=== PATIENT | male | born 1950 | race Caucasian/White ===

== ENCOUNTER 2023-12-16 07:41 | Day surgery (SDC) | payer MEDICARE, SELFPAY ==
[2023-11-18 09:16] VITALS: BMI 29.0
[2023-12-04 09:04] VITALS: BMI 29.0
--- NOTE | 2023-12-15 12:44 | P.PNAN_ITS ---
Anes - Initial Pre Proc Eval Procedure: Operation Date: 12/16/23 10:00 Proposed Procedures p Screening Colonoscopy - King Bonilla MD Date/Time: 12/15/23 12:44 Surgeon: King Bonilla MD Pre Op Diagnosis: Neoplasm screening. Patient Data Age: 73 Gender: M Height: 1.83 m Weight: 97 kg Allergies Allergy/AdvReac Type Severity Reaction Status Date / Time No Known Allergies Allergy Verified 12/16/23 08:41 Home Medications Medication Instructions Recorded Confirmed Type amlodipine 5 mg tablet 5 mg PO DAILY 12/04/23 12/16/23 History dupilumab 300 mg/2 mL subcutaneous 300 mg subcut [id number] 12/04/23 12/16/23 History pen injector (Dupixent) multivit with minerals-iron 18 1 tablet PO DAILY 12/04/23 12/16/23 History mg-folic ac 400 mcg-vit K 25 mcg tablet (Adults Multivitamin) nebivolol 10 mg tablet 10 mg PO DAILY 12/04/23 12/16/23 History omega-3 acid ethyl esters 1 gram 2 cap PO BID 12/04/23 12/16/23 History capsule rosuvastatin 10 mg tablet 10 mg PO DAILY 12/04/23 12/16/23 History tamsulosin 0.4 mg capsule 0.4 mg PO DAILY 12/04/23 12/16/23 History telmisartan 80 mg tablet 80 mg PO DAILY 12/04/23 12/16/23 History Patient hx anesthesia problems: none Family hx anesthesia problems: none Results Review: All pre-operative results and documents have been reviewed as part of the pre- operative evaluation. [facility] Past Medical History Medical History (Updated 12/15/23 @ 19:35 by King Bonilla MD) Asthma Hyperlipidemia Hypertension Social History Social History (Updated 12/16/23 @ 09:48 by Everton Lloyd DO) Smoking status: Former smoker Additional smoking assessment comments: less than 0.5 PPD x 50 years, quit 2017 Alcohol intake: current Drinks per week: 8 Substance use: never Substance use type: does not use Spiritual care concerns: No Anes - Eval Final PreProcedure Day of Procedure 12/15/23 12:44 Patient weight: overweight Heart: regular rate and rhythm Lungs: clear to auscultation Airway: Mallampati scale class II Neurological: alert and oriented Last oral intake: >/= 8 hours ASA classification: III Emergent: no Anesthetic plan: proceed Anesthesia type and monitoring: general GIVS and standard monitoring Results Review: All pre-operative results and documents have been reviewed as part of the pre- operative evaluation. Informed Consent: The patient's anesthetic plan and its attendant risks and benefits were discussed with the patient/family/POA. Questions were solicited and answers provided to the satisfaction of the patient/family/POA.
--- NOTE | 2023-12-15 19:34 | PM.HPGS ---
History of Present Illness History of Present Illness Consent: Risks, benefits, and alternatives have been discussed and questions answered. Patient agrees to proceed with procedure. Chief complaint: Neoplasm screening. Narrative: Angel Aguilar is a 73 year old male with history of colon polyps Review of Systems Review of Systems: All systems reviewed & are unremarkable except as noted in HPI and below PMFSH Past Medical History Medical History (Updated 12/15/23 @ 19:35 by King Bonilla MD) Asthma Hyperlipidemia Hypertension Social History Social History Smoking status: Former smoker Additional smoking assessment comments: less than 0.5 PPD x 50 years, quit 2017 Alcohol intake: current Drinks per week: 8 Substance use: never Substance use type: does not use Spiritual care concerns: No Meds Home Medications and Allergies Home Medications Medication Instructions Recorded Confirmed Type amlodipine 5 mg tablet 5 mg PO DAILY 12/04/23 12/16/23 History dupilumab 300 mg/2 mL subcutaneous 300 mg subcut [id number] 12/04/23 12/16/23 History pen injector (Dupixent) multivit with minerals-iron 18 1 tablet PO DAILY 12/04/23 12/16/23 History mg-folic ac 400 mcg-vit K 25 mcg tablet (Adults Multivitamin) nebivolol 10 mg tablet 10 mg PO DAILY 12/04/23 12/16/23 History omega-3 acid ethyl esters 1 gram 2 cap PO BID 12/04/23 12/16/23 History capsule rosuvastatin 10 mg tablet 10 mg PO DAILY 12/04/23 12/16/23 History tamsulosin 0.4 mg capsule 0.4 mg PO DAILY 12/04/23 12/16/23 History telmisartan 80 mg tablet 80 mg PO DAILY 12/04/23 12/16/23 History Allergies Allergy/AdvReac Type Severity Reaction Status Date / Time No Known Allergies Allergy Verified 12/16/23 08:41 Exam Resp: Auscultation: clear to auscultation bilaterally Cardio: Rate: regular rate Rhythm: regular rhythm GI: GI Palp: Yes Soft to palpation and No Tenderness to palpation present (GI) Assessment and Plan Assessment and plan (1) Personal history of colonic polyps: Code(s): Z86.010 - Personal history of colonic polyps Status: Acute Assessment and Plan: Colonoscopy with possible biopsy or polypectomy or cautery or injection of substances.
[2023-12-16 08:49] VITALS: BP 132/84; PULSE 55; RESP 18; TEMP 36.8; O2SAT 96; BMI 27.6
[2023-12-16] MEDS: LACTATED RINGERS 1,000 ML 150 ML IV CONT (09:04)
[2023-12-16 10:08] VITALS: BP 147/74; PULSE 52; RESP 16; O2SAT 93
--- NOTE | 2023-12-16 10:13 | WPDANESPN ---
Anes - Prog Note Post-Op Date/Time: 12/16/23 10:13 Cardiovascular status: normal Respiratory status: normal Airway patency: baseline Mental status: baseline Post-Op hydration status: normal Vital Signs: Last Vital Signs Temp 36.8 C 12/16/23 08:49 Pulse 52 L 12/16/23 10:08 Resp 16 12/16/23 10:08 BP 147/74 H 12/16/23 10:08 Pulse Ox 93 12/16/23 10:08 O2 Del Method Room Air 12/16/23 10:08 Pain Score (VAS): 0 I/O: Intake & Output 12/15/23 12/16/23 12/16/23 23:59 07:59 15:59 Intake Total 500 Balance 500 Post-procedural complaints: none Patient Feedback: Patient satisfied with anesthetic care. Other Findings: Patient vital signs back to baseline. Patient denies nausea and vomiting. Patient's pain under control. Patient OK for discharge.
[2023-12-16 10:18] VITALS: BP 133/77; PULSE 50; RESP 16; O2SAT 95
[2023-12-16 10:28] VITALS: BP 131/82; PULSE 49; RESP 18; O2SAT 98
== END 2023-12-16 10:55 | disposition home or self-care (01) ==
PROVIDERS: PCP Internal Medicine; Visit Provider Internal Medicine Gastroenterology
PROC: 0DJD8ZZ Inspection of Lower Intestinal Tract, Via Natural or Artificial Opening Endoscopic (ICD-10-PCS; CPT 45378; principal; 2023-12-16 10:00)
DX: Z86.010 Personal history of colon polyps (principal); Z12.11 Encounter for screening for malignant neoplasm of colon; K57.30 Diverticulosis of large intestine without perforation or abscess without bleeding
CPT/HCPCS: 45378

== ENCOUNTER 2025-03-05 08:13 | Day surgery (SDC) | payer MEDICARE, SELFPAY ==
[2025-03-05] VITALS (15 sets, daily range): BP systolic 137–215; BP diastolic 71–107; PULSE 61–80; RESP 16–22; TEMP 36.3–37.1; O2SAT 93–99
--- OUTSIDE RECORDS SUMMARY | 2025-03-05 08:15 | XMS_ITS | Encounter Summary ---
Author Organization [facility] Healthcare Address [address] [place] [address] Care Team Providers Care Marble Cutter Operator Name Role Phone Rbo Easley MD Primary Care Provider [phone] Jcarlos Morrow MD Unavailable Benjamin Garcia MD Unavailable [phone] Felicia Walker NP Unavailable [phone] David Sosa MD Unavailable [phone] Encounter Details Date Type Department Care Team (Late st Contact Info) Description 03/13/2020 Telephone [facility] Advanced Medicine Radiation Oncology [address] [facility] [place] [address] Mariama Mazariegos MA Social History Tobacco Use Types Packs/Day Years Used Date Smoking Tobacco: Former Cigarettes 0.3 50 1 - 02/25/2017 Smokeless Tobacco: Former Snuff, Chew Quit: 1980 Alcohol Use Standard Drinks/Week Comments Yes 6 (1 standard drink = 0.6 oz pur e alcohol) Humiliation, Afraid, Rape, and Kick questionnair e Answer Date Recorded Fear of Current or Ex-Partner No Emotionally Abused No 11/24/2018 Physically Abused No 11/24/2018 Sexually Abused No 11/24/2018 Social Connection and Isolation Panel Answer Date Recorded Frequency of Communication with Friends and Fami ly Once a week 11/24/2018 Frequency of Social Gatherings with Friends and Family Once a week 11/24/2018 Attends Voodoo Services Never 11/24 Active Member of Clubs or Organizations Yes 11/24/2018 Attends Club or Organization Meetings Never 11/24/2018 Marital Status 11/24/2018 AUDIT-C Answer Date Recorded Frequency of Alcohol Consumption 2-4 times a mon 11/24/2018 Average Number of Drinks 5 or 6 019 Frequency of Binge Drinking Never 10/28 Overall Financial Resource Strain (CARDIA) Answe r Date Recorded Difficulty of Paying Living Expenses Not hard at all 11/24/2018 [facility] - Occupational Stress Questionnaire Answer Date Recorded Feeling of Stress Only a little 11/24/2018 Exercise Vital Sign Answer Date Recorde d Days of Exercise per Week 4 days 2018 Minutes of Exercise per Session 30 min 11/24/2018 Hunger Vital Sign Answer Date Recorded Worried About Running Out of Food in the Last Ye ar Never true 11/24/2018 Ran Out of Food in the Last Year Never true 11/24/2018 PRAPARE - Transportation Answer Date Re corded Lack of Transportation (Medical) No 11/24/2018 Lack of Transportation (Non-Medical) No 11/24/2018 Education Answer Date Recorded What is the highest level of school you have completed or the highest degree you have received? 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 Gender Identity Male 10/10/2021 11:17 AM CDT Sexual Orientation Straight 10/10/2021 11 :17 AM CDT Occupation Industry Job Start Date Job End Date 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 Not on file Not on file Not on f ile documented as of this encounter Plan of Treatment Not on file documented as of this encounter Visit Diagnoses Not on filedocumented in this encounter Care Teams Marble Cutter Operator Relationship Specialty Start Date End Date Rob Easley MD PCP - General Internal Medicine 07/04/17 Jcarlos Morrow MD Referring Physician Urology 11/11/18 Benjaimn Garcia MD Radiation Oncologist Radiation Oncology 11/21/18 Felicia Walker NP [address] [place] [address] Nurse Practitioner Nurse Practitioner 04/13/21 David Sosa MD [address] [facility] [address] [place] [address] Radiation Oncologist Radiation Oncology 10/11/22 documented as of this encounter
--- OUTSIDE RECORDS SUMMARY | 2025-03-05 08:15 | XMS_ITS | Encounter Summary ---
Author Organization [facility] Address [address] [place] [address] Care Team Providers Care Baggage Checker Name Role Phone Unavailable Primary Care Provider Unavailabl e Encounter Details Date Type Department Care Team (Late st Contact Info) Description 05/07/2024 Lab Requisition [facility] - DermPath Lab [address] [facility] [place] [id number] Unique Oseguera PA [address] [place] [id number] Dermatitis, unspecified Social History Tobacco Use Types Packs/Day Years Used Date Smoking Tobacco: Never Assessed Sex and Gender Information Value Date Recorded Sex Assigned at Not on file Legal Sex Male 8:57 AM CDT Gender Identity Not on file Sexual Orientation Not on file documented as of this encounter Plan of Treatment Not on file documented as of this encounter Procedures Procedure Name Priority Date/Time Associated Diagnosis Comments DERMATOPATHOLOGY Routine 05/07/2024 12:0 0 AM HEALTH SCIENCE SPECIALIST Dermatitis, unspecified documented in this encounter Results * DERMATOPATHOLOGY (05/07/2024 12:00 AM HEALTH SCIENCE SPECIALIST) Case Report Dermatopathology Report Case: [id number] Authorizing Provider: Unique Oseguera PA Collected: 05/07/2024 12:00 AM Ordering Location: [facility] - Received: 2024 01:11 PM DermPath Lab Pathologist: Mahamed Maldonado MD Specimen: Skin, right mid upper back 5:32 PM HEALTH SCIENCE SPECIALIST DERMATOPATHOLOGY LABORATORY Final Diagnosis Specimen A. 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 Hypersensitivity reaction vs. Tinea Corporis vs. Psoriasis 5:32 PM [facility] DERMATOPATHOLOGY LABORATORY Gross Description Specimen A: Received is one formalin filled container labeled with the patient's name and designated right mid upper back. The specimen consists of a punch biopsy measuring 4x4x2 mm. Jar 0. 5:32 PM [facility] DERMATOPATHOLOGY LABORATORY Microscopic Description Specimen A. SKIN, right mid upper back: There is focal parakeratosis and spongiosis. In the dermis there is a mainly superficial perivascular lymphohistiocytic inflammatory infiltrate with rare eosinophils. Grocott's methenamine silver (GMS) stain is negative for fungal elements in the sections examined. There is erythrocyte extravasation in the papillary dermis. COMMENT: The histological differential diagnosis includes a contact dermatitis and an eczematous drug eruption. A diagnosis of pityriasis rosea was considered. 5:32 PM [facility] DERMATOPATHOLOGY LABORATORY Disclaimer An external and internal positive and negative controls are appropriate for the histochemical, immunohistochemical and immunofluorescence stain(s) in this case (if any), except where stated explicitly. The performance characteristics of the stain(s) cited in this report were developed and its performance characteristic determined by the Dermatopathology Laboratory at [facility], directed by Dr. Cora Maldonado. These tests need not be, and therefore are not, approved by the [place] Food and Drug Administration. The tests are used for clinical purposes. Billing Codes Specimen Charges Stain Charges 13029 1 56297 1 5 5:32 PM [facility] DERMATOPATHOLOGY LABORATORY Embedded Images 5:32 PM [facility] DERMATOPATHOLOGY LABORATORY Pathology/Cytolog y TISSUE SPECIMEN FROM SKIN / Unknown 05/07/2024 2024 1:11 PM [facility] - PATHOLOGY/CYTOLOGY OR DERABLES Final Result DERMATOPATHOLOGY LABORATORY [facility] - Department of Dermatology [address] [phone] documented in this encounter Visit Diagnoses Diagnosis Dermatitis, unspecified documented in this encounter
--- OUTSIDE RECORDS SUMMARY | 2025-03-05 08:15 | XMS_ITS | Data Portability ---
Author Organization [employer], Main Office Address [address] [place] [address] Assessment Encounter Date Assessment Date Assessment LastModified by Organization Details LastModified Time 08/19/2022 08/19/2022 Doxycycline Blood work Continue current therapy Blood pressure is up a little bit today will increase the telmisartan to 40 mg in the morning 20 mg at night see me in 1 month Not available 08/19/2022 22:39:52 09/16/2022 09/16/2022 Switch back to telmisartan 40 mg 1-1/2 tablets daily blood pressure check in a couple weeks see me in 4 months [email or web address] Not available 09/17/2022 08:29:04 12/18/2022 12/18/2022 Continue current therapy follow-up in 4 months [email or web address] Not available 12/18/2022 22:55:01 01/23/2023 01/23/2023 Medrol Dosepak continue current therapy otherwise and follow up with me in 6 months [email or web address] Not available 02/02/2023 18:30:33 Plan of Treatment Reminders Order Date Submit Date Provider Last Modified By Organization Details Last Modified Time Details Appointments None recorded. Lab PSA, serum or plasma 2022 023 [facility] (Lab), [address] [place], [address], 15:44:29 lipid panel, serum 2022 023 [facility] (Lab), [address] [place], [address], 3 15:44:36 CMP, serum or plasma 2022 023 [facility] (Lab), [address] [place], [address], 3 12:49:02 CBC w/ auto diff 2022 023 [facility] (Lab), [address] [place], [address], 3 13:38:01 Referral None recorded. Procedures None recorded. Surgeries None recorded. Imaging None recorded. Medication Orders Medrol (Chito) 4 mg tablets in a dose pack 2022 023 [email or web address] [facility] #[id number], [address], [place], [address], 3 18:25:34 doxycycline hyclate 100 mg capsule 2022 023 [email or web address] [facility] #[id number], [address], [place], [address], 3 09:56:34 telmisartan 40 mg tablet 2022 023 [email or web address] [facility] #[id number], [address], [place], [address], 3 17:45:28 Patient TargetsNo targets recorded. Patient InstructionsNo instructions recorded. Reason for Referral None Reported. Results Created Date Observation Date Name Description Value Unit Range Abnormal Flag Note LastModifiedBy Organization Detail LastModifiedTime 08/20/1908/19/2022 COMPR EHENS JUDE METAB OLIC PANEL sodium 138 mmol/ L 137-14 5 Not Available [facility] (Lab) [address] [place], [address], 08/19/2022 12:49:02 08/20/19 23 08/19/2022 COMPR EHENS JUDE METAB OLIC PANEL potassium 4.1 mmol/ L 3.5-5. 1 Not Available [facility] (Lab) [address] [place], [address], 08/19/2022 12:49:02 08/20/19 23 08/19/2022 COMPR EHENS JUDE METAB OLIC PANEL chloride 104 mmol/ L 98-107 Not Available [facility] (Lab) [address] [place], [address], 08/19/2022 12:49:02 08/20/19 23 08/19/2022 COMPR EHENS JUDE METAB OLIC PANEL carbon dioxide 26 mmol/ L 22-30 Not Available [facility] (Lab) [address] [place], [address], 08/19/2022 12:49:02 08/20/19 23 08/19/2022 COMPR EHENS JUDE METAB OLIC PANEL anion gap 12.1 mmol/ L 14-22 low Not Available [facility] (Lab) [address] [place], [address], 08/19/2022 12:49:02 08/20/19 23 08/19/2022 COMPR EHENS JUDE METAB OLIC PANEL glucose 140 mg/dL 70-99 high Not Available [facility] (Lab) [address] [place], [address], 08/19/2022 12:49:02 08/20/1908/19/2022 COMPR EHENS JUDE METAB OLIC PANEL BUN 11 mg/dL 8-19 Not Available [facility] (Lab) [address] [place], [address], 08/19/2022 12:49:02 08/20/19 23 08/19/2022 COMPR EHENS JUDE METAB OLIC PANEL creatinine 0.96 mg/dL 0.66-1 .25 Not Available [facility] (Lab) [address] [place], [address], 08/19/2022 12:49:02 08/20/19 23 08/19/2022 COMPR EHENS JUDE METAB OLIC PANEL GFR >60 Refer ence Range : [place] ge GFR Healt hy Adult : >60 mL/mi n/1.7 3 m2 Chron ic Kidne y Disea se: 15-60 mL/mi n/1.7 3 m2 Kidne y Failu re: <15/m L/min /1.73 m2 www.n iddk. [facility].g ov The MDRD study equat ion has not been valid ated in child ciro <18 years of age; pregn ant women ; the elder ly >85 years of age; or in some racia l or ethni c subgr oups, such as Hisalicia nics. Outsi de the valid ated sukh eters , estim ated GFR is less accur ate, requi ring clini cassie judgm ent on a case- by-ca se basis . Clini cassie inter preta tion for other races and ages must be made by the clini sudheer. The MDRD study equat ion has not been valid ated for the evalu ation of serum creat inine relat ed to nutri honey l statu s or medic ation usage . For perso ns <18 years of age, a pedia tric GFR calcu lator is avail able on the [facility] websi te: https :[email or web address] a [email or web address] [email or web address] rg/pr ofess ional s/kdo qi/gf r_cal culat or Not Available [facility] (Lab) [address] [place], [address], 08/19/2022 12:49:02 08/20/1908/19/2022 COMPR EHENS JUDE METAB OLIC PANEL alkaline phosphatase 52 U/L 38-126 Not Available [facility] (Lab) [address] [place], [address], 08/19/2022 12:49:02 08/20/19 23 08/19/2022 COMPR EHENS JUED METAB OLIC PANEL alanine aminotransfe rase 46 U/L 0-50 Not Available [facility] (Lab) [address] [place], [address], 08/19/2022 12:49:02 08/20/19 23 08/19/2022 COMPR EHENS JUDE METAB OLIC PANEL aspartate aminotransfe rase 54 U/L 15-46 high Not Available [facility] (Lab) [address] [place], [address], 08/19/2022 12:49:02 08/20/19 23 08/19/2022 COMPR EHENS JUDE METAB OLIC PANEL bilirubin, total 0.40 mg/dL 0.20-1 .30 Not Available [facility] (Lab) [address] [place], [address], 08/19/2022 12:49:02 08/20/19 23 08/19/2022 COMPR EHENS JUDE METAB OLIC PANEL calcium 9.7 mg/dL 8.4-10 .2 Not Available [facility] (Lab) [address] [place], [address], 08/19/2022 12:49:02 08/20/19 23 08/19/2022 COMPR EHENS JUDE METAB OLIC PANEL total protein 6.9 g/dL 6.3-8. 2 Not Available [facility] (Lab) [address] [place], [address], 08/19/2022 12:49:02 08/20/1908/19/2022 COMPR EHENS JUDE METAB OLIC PANEL albumin 4.3 g/dL 3.0-4. 4 Not Available [facility] (Lab) [address] [place], [address], 08/19/2022 12:49:02 08/20/19 23 08/19/2022 COMPR EHENS JUDE METAB OLIC PANEL globulin 2.6 g/dL 2.6-4. 2 Not Available [facility] (Lab) [address] [place], [address], 08/19/2022 12:49:02 08/20/1908/19/2022 COMPR EHENS JUDE METAB OLIC PANEL A/G ratio 1.7 ratio 1.0-2. 0 Not Available [facility] (Lab) [address] [place], [address], 08/19/2022 12:49:02 08/20/19 23 08/19/2022 PSA SCREE N PSA medicare screen 0.23 NG/mL 0.00-4 .00 Not Available [facility] (Lab) [address] [place], [address], 08/19/2022 13:27:10 08/20/19 23 08/19/2022 CBC/C OMPLE TE BLD COUNT W/DIF F white blood cells 8.9 x10'3 /uL 4.2-10 .8 Not Available [facility] (Lab) [address] [place], [address], 08/19/2022 13:38:01 08/20/19 23 08/19/2022 CBC/C OMPLE TE BLD COUNT W/DIF F red blood cells 4.71 x10'6 /uL 4.10-5 .80 Not Available [facility] (Lab) [address] [place], [address], 08/19/2022 13:38:01 08/20/19 23 08/19/2022 CBC/C OMPLE TE BLD COUNT W/DIF F hemoglobin 15.0 g/dL 13.2-1 7.0 Not Available [facility] (Lab) [address] [place], [address], 08/19/2022 13:38:01 08/20/19 23 08/19/2022 CBC/C OMPLE TE BLD COUNT W/DIF F hematocrit 46.2 % 39.3-5 0.0 Not Available [facility] (Lab) [address] [place], [address], 08/19/2022 13:38:01 08/20/1908/19/2022 CBC/C OMPLE TE BLD COUNT W/DIF F mean red cell volume 98.1 fL 80.0-9 7.0 high Not Available [facility] (Lab) [address] [place], [address], 08/19/2022 13:38:01 08/20/19 23 08/19/2022 CBC/C OMPLE TE BLD COUNT W/DIF F mean red cell hemoglobin 31.8 pg 27.0-3 3.0 Not Available [facility] (Lab) [address] [place], [address], 08/19/2022 13:38:01 08/20/19 23 08/19/2022 CBC/C OMPLE TE BLD COUNT W/DIF F mean RBC HGB concentratio n 32.5 g/dL 31.0-3 6.0 Not Available [facility] (Lab) [address] [place], [address], 08/19/2022 13:38:01 08/20/19 23 08/19/2022 CBC/C OMPLE TE BLD COUNT W/DIF F red cell distribution width 12.8 % 11.8-1 5.5 Not Available [facility] (Lab) [address] [place], [address], 08/19/2022 13:38:01 08/20/19 23 08/19/2022 CBC/C OMPLE TE BLD COUNT W/DIF F platelets 306 x10'3 /uL 150-40 0 Not Available [facility] (Lab) [address] [place], [address], 08/19/2022 13:38:01 08/20/19 23 08/19/2022 CBC/C OMPLE TE BLD COUNT W/DIF F mean platelet volume 8.8 fL 9.0-12 .4 low Not Available [facility] (Lab) [address] [place], [address], 08/19/2022 13:38:01 08/20/19 23 08/19/2022 CBC/C OMPLE TE BLD COUNT W/DIF F neutrophils 59.4 % 39.0-7 2.0 Not Available [facility] (Lab) [address] [place], [address], 08/19/2022 13:38:01 08/20/19 23 08/19/2022 CBC/C OMPLE TE BLD COUNT W/DIF F lymphocytes 27.5 % 16.0-4 7.0 Not Available [facility] (Lab) [address] [place], [address], 08/19/2022 13:38:01 08/20/1908/19/2022 CBC/C OMPLE TE BLD COUNT W/DIF F monocytes 6.5 % 5.0-12 .0 Not Available [facility] (Lab) [address] [place], [address], 08/19/2022 13:38:01 08/20/19 23 08/19/2022 CBC/C OMPLE TE BLD COUNT W/DIF F eosinophils 3.7 % 1.0-7. 0 Not Available [facility] (Lab) [address] [place], [address], 08/19/2022 13:38:01 08/20/19 23 08/19/2022 CBC/C OMPLE TE BLD COUNT W/DIF F basophils 2.1 % 0.0-2. 0 high Not Available [facility] (Lab) [address] [place], [address], 08/19/2022 13:38:01 08/20/19 23 08/19/2022 CBC/C OMPLE TE BLD COUNT W/DIF F immature granulocytes 0.8 % 0.00-0 .50 high Not Available [facility] (Lab) [address] [place], [address], 08/19/2022 13:38:01 08/20/19 23 08/19/2022 CBC/C OMPLE TE BLD COUNT W/DIF F neutrophils, absolute count 5.27 x10'3 /uL 1.5-8. 0 Not Available [facility] (Lab) [address] [place], [address], 08/19/2022 13:38:01 08/20/1908/19/2022 CBC/C OMPLE TE BLD COUNT W/DIF F lymphocytes, absolute count 2.44 x10'3 /uL 1.07-3 .43 Not Available [facility] (Lab) [address] [place], [address], 08/19/2022 13:38:01 08/20/19 23 08/19/2022 CBC/C OMPLE TE BLD COUNT W/DIF F monocytes, absolute count 0.58 x10'3 /uL 0.29-0 .99 Not Available [facility] (Lab) [address] [place], [address], 08/19/2022 13:38:01 08/20/19 23 08/19/2022 CBC/C OMPLE TE BLD COUNT W/DIF F eosinophils, absolute count 0.33 x10'3 /uL 0.02-0 .53 Not Available [facility] (Lab) [address] [place], [address], 08/19/2022 13:38:01 08/20/1908/19/2022 CBC/C OMPLE TE BLD COUNT W/DIF F basophils, absolute count 0.19 x10'3 /uL 0.01-0 .08 high Not Available [facility] (Lab) [address] [place], [address], 08/19/2022 13:38:01 08/20/19 23 08/19/2022 CBC/C OMPLE TE BLD COUNT W/DIF F immature granulocytes ,absolute 0.07 x10'3 /uL 0.00-0 .05 high Not Available [facility] (Lab) [address] [place], [address], 08/19/2022 13:38:01 08/20/19 23 08/19/2022 CBC/C OMPLE TE BLD COUNT W/DIF F nucleated red blood cells 0.0 % -0 Not Available [facility] (Lab) [address] [place], [address], 08/19/2022 13:38:01 08/20/19 23 08/19/2022 CBC/C OMPLE TE BLD COUNT W/DIF F NRBC# 0.00 x10'3 /uL Not Available [facility] (Lab) [address] [place], [address], 08/19/2022 13:38:01 01/15/20 23 01/14/2023 COMPR EHENS JUDE METAB OLIC PANEL sodium 137 mmol/ L 137-14 5 Not Available [facility] (Lab) [address] [place], [address], 01/14/2023 11:42:42 01/15/20 23 01/14/2023 COMPR EHENS JUDE METAB OLIC PANEL potassium 4.7 mmol/ L 3.5-5. 1 Not Available [facility] (Lab) [address] [place], [address], 01/14/2023 11:42:42 01/15/20 23 01/14/2023 COMPR EHENS JUDE METAB OLIC PANEL chloride 101 mmol/ L 98-107 Not Available [facility] (Lab) [address] [place], [address], 01/14/2023 11:42:42 01/15/20 23 01/14/2023 COMPR EHENS JUDE METAB OLIC PANEL carbon dioxide 29 mmol/ L 22-30 Not Available [facility] (Lab) [address] [place], [address], 01/14/2023 11:42:42 01/15/20 23 01/14/2023 COMPR EHENS JUDE METAB OLIC PANEL anion gap 11.7 mmol/ L 14-22 low Not Available [facility] (Lab) [address] [place], [address], 01/14/2023 11:42:42 01/15/20 23 01/14/2023 COMPR EHENS JUDE METAB OLIC PANEL glucose 104 mg/dL 70-99 high Not Available [facility] (Lab) [address] [place], [address], 01/14/2023 11:42:42 01/15/20 23 01/14/2023 COMPR EHENS JUDE METAB OLIC PANEL BUN 13 mg/dL 8-19 Not Available [facility] (Lab) [address] [place], [address], 01/14/2023 11:42:42 01/15/20 23 01/14/2023 COMPR EHENS JUDE METAB OLIC PANEL creatinine 1.06 mg/dL 0.66-1 .25 Not Available [facility] (Lab) [address] [place], [address], 01/14/2023 11:42:42 01/15/2001/14/2023 COMPR EHENS JUDE METAB OLIC PANEL GFR >60 Refer ence Range : [place] ge GFR Healt hy Adult : >60 mL/mi n/1.7 3 m2 Chron ic Kidne y Disea se: 15-60 mL/mi n/1.7 3 m2 Kidne y Failu re: <15/m L/min /1.73 m2 www.n iddk. nih.g ov The MDRD study equat ion has not been valid ated in child ciro <18 years of age; pregn ant women ; the elder ly >85 years of age; or in some racia l or ethni c subgr oups, such as Hispa nics. Outsi de the valid ated sukh eters , estim ated GFR is less accur ate, requi ring clini cassie judgm ent on a case- by-ca se basis . Clini cassie inter preta tion for other races and ages must be made by the clini sudheer. The MDRD study equat ion has not been valid ated for the evalu ation of serum creat inine relat ed to nutri honey l statu s or medic ation usage . For perso ns <18 years of age, a pedia tric GFR calcu lator is avail able on the [facility] websi te: https :[email or web address] a [email or web address] arriola/pr ofess ional s/kdo qi/gf r_cal culat or Not Available [facility] (Lab) [address] [place], [address], 01/14/2023 11:42:42 01/15/20 23 01/14/2023 COMPR EHENS JUDE METAB OLIC PANEL alkaline phosphatase 58 U/L 38-126 Not Available [facility] (Lab) [address] [place], [address], 01/14/2023 11:42:42 01/15/20 23 01/14/2023 COMPR EHENS JUDE METAB OLIC PANEL alanine aminotransfe rase 39 U/L 0-50 Not Available [facility] (Lab) [address] [place], [address], 01/14/2023 11:42:42 01/15/20 23 01/14/2023 COMPR EHENS JUDE METAB OLIC PANEL aspartate aminotransfe rase 43 U/L 15-46 Not Available [facility] (Lab) [address] [place], [address], 01/14/2023 11:42:42 01/15/20 23 01/14/2023 COMPR EHENS JUDE METAB OLIC PANEL bilirubin, total 0.60 mg/dL 0.20-1 .30 Not Available [facility] (Lab) [address] [place], [address], 01/14/2023 11:42:42 01/15/20 23 01/14/2023 COMPR EHENS JUDE METAB OLIC PANEL calcium 9.4 mg/dL 8.4-10 .2 Not Available [facility] (Lab) [address] [place], [address], 01/14/2023 11:42:42 01/15/20 23 01/14/2023 COMPR EHENS JUDE METAB OLIC PANEL total protein 7.2 g/dL 6.3-8. 2 Not Available [facility] (Lab) [address] [place], [address], 01/14/2023 11:42:42 01/15/20 23 01/14/2023 COMPR EHENS JUDE METAB OLIC PANEL albumin 4.5 g/dL 3.0-4. 4 high Not Available [facility] (Lab) [address] [place], [address], 01/14/2023 11:42:42 01/15/20 23 01/14/2023 COMPR EHENS JUDE METAB OLIC PANEL globulin 2.7 g/dL 2.6-4. 2 Not Available [facility] (Lab) [address] [place], [address], 01/14/2023 11:42:42 01/15/20 23 01/14/2023 COMPR EHENS JUDE METAB OLIC PANEL A/G ratio 1.7 ratio 1.0-2. 0 Not Available [facility] (Lab) [address] [place], [address], 01/14/2023 11:42:42 01/15/20 23 01/14/2023 LIPID PANEL cholesterol 169 mg/dL 140-19 9 NIH WAQAS NSUS RECOM MENDA TION FOR AZALIA STERO L: ADULT CHILD LOW RISK: <200 <170 BORDE RLINE : <200- 239 ----- HIGH RISK: >240 >200 Not Available [facility] (Lab) [address] [place], [address], 01/14/2023 11:42:46 01/15/20 23 01/14/2023 LIPID PANEL triglyceride s 211 mg/dL 0-150 high NIH WAQAS NSUS REPOR T RECOM MENDA TION FOR TRIGL YCERI DANNY: ADULT CHILD LOW RISK: <150 ----- BODER LINE: 150-1 99 ----- HIGH RISK: >200 ----- Not Available [facility] (Lab) [address] [place], [address], 01/14/2023 11:42:46 01/15/2001/14/2023 LIPID PANEL HDL cholesterol 59 mg/dL 40- Not Available [facility] (Lab) [address] [place], [address], 01/14/2023 11:42:46 01/15/2001/14/2023 LIPID PANEL LDL cholesterol, calculated 68 mg/dL 0-130 NIH WAQAS NSUS REPOR T RECOM MENDA TIONS FOR LDL: ADULT CHILD LOW RISK <130 <110 (OPTI MAL LDL) <100 ----- BORDE RLINE : 130-1 59 ----- HIGH RISK: >160 >130 A TRIGL YCERI DE RESUL T >400 INVAL IDATE S THE CALCU LATIO N FOR LDL FRACT IONAT ION - THE LDL RESUL T WILL NOT BE REPOR YULY. Not Available [facility] (Lab) [address] [place], [address], 01/14/2023 11:42:46 01/15/2001/14/2023 HEMOG LOBIN A1C HA1C 6.0 % 4.0-6. 0 Diabe harrison Scree melania Crite viviane: <5.7% Consi stent with absen ce of diabe harrison 5.7-6 .4% Consi stent with incre ased risk for diabe harrison (pred iabet es) >OR=6 .5% Consi stent with diabe harrison REFER ENCE: Diabe harrison Care 2016, 39([place]ero ppl.1 ):s13 -s22 Not Available [facility] (Lab) [address] [place], [address], 01/14/2023 12:48:52 07/04/19 23 audio gram + tympa nogra m No observ ation record ed. [email or web address] Not Available 2022 10:53:30 07/10/19 23 audio gram + tympa nogra m No observ ation record ed. [email or web address] Not Available 07/09 15:01:31 Result Notes None recorded. Problems Name Problem SNOMED Code Status Onset Date Resolution Date Notes Provider Name and Address Organization Details Recorded Time Benign essential hypertens ion 2639847 Active Not Available [facility] 3 17:10:32 Liver function tests outside reference range 889009315 Active Not Available [facility] 3 17:10:33 Pure hyperchol esterolem ia 148159387 Active Not Available [facility] 3 17:10:33 Shoulder joint pain 403146483 Active Not Available [facility] 3 17:10:33 Knee pain Active Not Available [facility] 3 17:10:33 Neuropath y 221805887 Active Not Available [facility] 3 17:10:33 Disorder of bursa of shoulder region 76594406 Active Not Available [facility] 3 17:10:33 Tinea pedis 5695894 Active Not Available [facility] 3 17:10:33 Rupture of quadricep s tendon 5939365 Active Not Available [facility] 3 17:10:33 Skin lesion 48361411 Active Not Available [facility] 3 17:10:33 Irritable bowel syndrome 40783041 Active 2017 Not Available [facility] 3 17:10:32 Carcinoma of prostate 330938698 Active 2018 being treated at [facility] Not Available [facility] 3 17:10:33 Hearing loss 38272755 Active 2022 Not Available [facility] 3 17:10:32 Sensorine ural hearing loss of bilateral ears 641633772 Active 2022 Not Available [facility] 3 17:10:33 Asymmetri cassie sensorine ural hearing loss 611585494 Active 2022 Not Available [facility] 3 17:10:33 Sinusitis 04142548 Active 2022 Not Available [facility] 3 17:10:33 Eruption 008258749 Active 2022 Not Available [facility] 3 17:10:33 Hypertens jude disorder 12307421 Active 2022 Not Available [facility] 3 17:10:33 Notes:Some problems listed i n Document: #[id number] could not be added to this patient's chart. Please review this document and add these problems to the patient's chart manually as needed. Problem Notes None recorded. Procedures Surgical History Date Name Laterality Status Provider Name and Address Organization Details Recorded Time 01/10/20 21 Excisions - Specify completed Not Available [facility] 06/26/2022 03:12:34 12/10/19 19 Colonoscopy completed Not Available [facility] 06/27/19 23 03:12:34 11/06/19 13 Repair of thigh muscle completed Not Available [facility] 06/26/2022 03:12:34 12/02/19 09 Colonoscopy completed Not Available [facility] 06/27/19 23 03:12:34 tonsilectomy/ad enoids completed Not Available [facility] 06/26/2022 03:12:34 Hand completed Not Available [facility] 04/2022 03:12:34 Imaging Results None recorded. Procedure Notes None recorded. Medical Equipment None Reported. Allergies Allergen ID Allergen Name Allergen Category Reaction Reaction Severity Criticality Documentation Date Start Date Code Code System Note Provider Name and Address Organization Details Recorded Time 38505 nifedipin e medicatio n rash Not available Not available 03/11/2023 7417 [facility] [place] [facility] 3 17:44:39 Medications Name Sig Start Date Stop Date Status Note LastModified by Organization Details LastModified Time alcohol swabs 70% pad USE DIRECTED active Not Available Not Available No t Available telmisartan 40 mg-hydrochl orothiazide 12.5 mg tablet TK 1 T PO QD active Not Available Not Available No t Available losartan 50 mg tablet active Not Available Not Available No t Available amoxicillin 500 mg capsule Take 1 capsule 3 times a day by oral route for 10 days. 08/19 completed Not Available Not Available Not Available doxycycline hyclate 100 mg capsule TAKE 1 CAPSULE BY MOUTH TWICE A DAY 12/18 completed Not Available Not Available Not Available Keflex 500 mg capsule Take 1 capsule 3 times a day by oral route for 7 days. active Not Available Not Available No t Available prednisone 20 mg tablet PLEASE SEE ATTACHED FOR DETAILED DIRECTION S active Not Available Not Available No t Available nifedipine ER 30 mg tablet,exte nded release TAKE 1 TABLET BY MOUTH EVERY DAY 03/11 completed Not Available Not Available Not Available acetaminoph en 300 mg-codeine 30 mg tablet TAKE 1 TABLET BY MOUTH EVERY 6 HOURS NEEDED FOR PAIN 08/06 completed Not Available Not Available Not Available ciprofloxac in 250 mg tablet 03/31 completed Not Available Not Available Not Available amlodipine 5 mg tablet TAKE 1 TABLET BY MOUTH EVERY DAY active Not Available Not Available No t Available ciprofloxac in 500 mg tablet 12/02 completed Not Available Not Available Not Available sulfamethox azole 800 mg-trimetho prim 160 mg tablet 03/31 completed Not Available Not Available Not Available triamcinolo ne acetonide 0.1 % topical cream APPLY TO AFFECTED AREA TWICE A DAY NEEDED active Not Available Not Available No t Available ketorolac 10 mg tablet TAKE 1 TABLET BY MOUTH EVERY 6 HOURS NEEDED 06/12 completed Not Available Not Available Not Available tamsulosin 0.4 mg capsule TAKE 1 CAPSULE BY MOUTH EVERY DAY active Not Available Not Available No t Available dicyclomine 20 mg tablet TAKE 1 TABLET BY MOUTH EVERY DAY NEEDED active Not Available Not Available No t Available telmisartan 40 mg tablet Take 2 tablets every day by oral route. 2022 active Not Available Not Available Not Avai lable telmisartan 80 mg tablet TAKE 1 TABLET BY MOUTH EVERY DAY active Not Available Not Available No t Available gabapentin 300 mg capsule TK 1 C PO QD HS active Not Available Not Available No t Available diclofenac sodium 75 mg tablet,geneva yed release TK 1 T PO BID WITH FOOD 04/26 completed Not Available Not Available Not Available amoxicillin 250 mg capsule 07/27 completed Not Available Not Available Not Available mupirocin 2 % topical ointment APPLY THIN LAYER TO AFFECTED AREAS ON BUTTOCKS 2X DAILY NEEDED active Not Available Not Available No t Available gabapentin 100 mg capsule TAKE 1 CAPSULE BY MOUTH THREE TIMES DAILY active Not Available Not Available No t Available methylpredn isolone 4 mg tablets in a dose pack TAKE 6 TABLETS ON DAY 1 DIRECTED ON PACKAGE AND DECREASE BY 1 TAB EACH DAY FOR A TOTAL OF 6 DAYS active Not Available Not Available No t Available hydroxyzine HCl 10 mg tablet TAKE 1 TABLET BY MOUTH TWICE A DAY TOLERATED active Not Available Not Available No t Available hydrocodone 7.5 mg-acetamin ophen 500 mg tablet 04/05 completed Not Available Not Available Not Available cefdinir 300 mg capsule 12/02 completed Not Available Not Available Not Available betamethaso ne dipropionat e 0.05 % lotion APPLY TO SCALP TWICE A DAY NEEDED active Not Available Not Available No t Available doxycycline hyclate 100 mg tablet TK 1 T PO ONCE D 03/28 completed Not Available Not Available Not Available [employer] USE DIRECTED active Not Available Not Available No t Available rosuvastati n 10 mg tablet TAKE 1 TABLET BY MOUTH EVERY DAY active Not Available Not Available No t Available erythromyci n with ethanol 2 % topical solution 08/22 completed Not Available Not Available Not Available omega-3 acid ethyl esters 1 gram capsule TAKE 2 CAPSULES BY MOUTH TWICE A DAY WITH FOOD active Not Available Not Available No t Available Multivitami n 50 Plus 2021 active Not Available Not Available Not Avai lable nebivolol 10 mg tablet TAKE 1 TABLET BY MOUTH EVERY DAY active Not Available Not Available No t Available Suprep Bowel Prep Kit 17.5 gram-3.13 gram-1.6 gram oral solution MIX AND DRINK UTD 03/31 completed Not Available Not Available Not Available Vascepa 1 gram capsule TAKE 2 CAPSULES BY MOUTH TWICE DAILY 08/22 completed Not Available Not Available Not Available Dupixent 300 mg/2 mL subcutaneou s pen injector INJECT 1 PEN UNDER THE SKIN ON DAY 14 AND EVERY TWO WEEKS THEREAFTE R active Not Available Not Available No t Available Fluad Quad [id number](6 5yr up)(PF) 60 mcg (15 mcg x 4)/0.5mL IM syringe PHARMACY ADMINISTE RED 08/01 completed Not Available Not Available Not Available Vitals Date Recorded Body mass index (BMI) Body height Heart rate Body temperature Body weight Systolic And Diastolic Provider Name and Address Organization Details Last Updated DateTime 3 30.3 kg/m2 180.34 cm 65 /min 97.4 [degF] 79233.5 4 g 142/96 mm[Hg] Not Available [employer] 3 03:15:19 Date Recorded Body height Body mass index (BMI) Body weight Body temperature Heart rate Oxygen saturation Oxygen saturation in Arterial blood by Pulse oximetry Systolic And Diastolic Systolic And Diastolic Provider Name and Address Organization Details Last Updated DateTime 3 180.34 cm 30.8 kg/m2 293951. 91 g 98.4 [degF] 71 /min 97 % 97 % 168/90 mm[Hg] 166/92 mm[Hg] Ale dale RN [facility] [employer] 3 10:54:23 Date Recorded Body height Body mass index (BMI) Body weight Body temperature Heart rate Oxygen saturation Oxygen saturation in Arterial blood by Pulse oximetry Systolic And Diastolic Provider Name and Address Organization Details Last Updated DateTime 3 180.34 cm 30.3 kg/m2 95451.5 4 g 98 [degF] 64 /min 96 % 96 % 162/88 mm[Hg] Anabel Gutierrez RN [email or web address] 3 11:46:28 Date Recorded Heart rate Systolic And Diastolic Provider Name and Address Organization Details Last Updated DateTime 10/07/2022 62 /min 136/90 mm[Hg] RACHAEL Obrien [employer] [facility] [employer] [facility] 10/07/2022 10:18:27 Date Recorded Heart rate Systolic And Diastolic Provider Name and Address Organization Details Last Updated DateTime 11/04/2022 65 /min 150/82 mm[Hg] RACHAEL Obrien [place] [employer] [facility] [employer] 11/04/2022 11:24:12 Date Recorded Heart rate Systolic And Diastolic Provider Name and Address Organization Details Last Updated DateTime 12/04/2022 61 /min 170/90 mm[Hg] Yareli SilvaRACHAEL [employer] 12/04/2022 11:47:05 Date Recorded Body height Body mass index (BMI) Body weight Body temperature Heart rate Systolic And Diastolic Provider Name and Address Organization Details Last Updated DateTime 3 180.34 cm 29.8 kg/m2 82829.7 7 g 98.2 [degF] 60 /min 118/82 mm[Hg] Yareli SivlaRACHAEL [employer] 09:58:27 Date Recorded Body height Body mass index (BMI) Body weight Body temperature Heart rate Systolic And Diastolic Provider Name and Address Organization Details Last Updated DateTime 180.34 cm 30 kg/m2 71712.3 6 g 97.5 [degF] 60 /min 130/84 mm[Hg] Yareli Silva [employer] 14:41:20 Social History Question Answer Notes LastModified by Organization Details LastModified Time Tobacco Smoking Status Former Smoker quit 2016 KHADAR Rutledge [employer] 01/23/2023 14:32:26 Do You Have An Advance Directive? No Patient Declined, Stating He Already Has The Information [id number] Information not available 06/26/2022 Are You Blind Or Do You Have Difficulty Seeing? No [email or web address] Information not available 01/23/2023 What Is Your Level Of Caffeine Consumption? Occasional [id number] Information not available 06/26/2022 How Much Tobacco Do You Chew? None [id number] Information not available 06/26/2022 In The 14 Days Before Symptom Onset, Have You Had Close Contact With A Laboratory-confi rmed COVID-19 While That Case Was Ill? No [email or web address] Information not available 01/23/2023 In The 14 Days Before Symptom Onset, Have You Had Close Contact With A Person Who Is Under Investigation For COVID-19 While That Person Was Ill? No [email or web address] Information not available 01/23/2023 Are You Deaf Or Do You Have Serious Difficulty Hearing? Yes Bilateral Hearing Aids [email or web address] Information not available 01/23/2023 What Type Of Diet Are You Following? REGULAR [id number] Information not available 06/26/2022 Which Illicit Or Recreational Drugs Have You Used? None [email or web address] Information not available 01/23/2023 What Is The Highest Grade Or Level Of School You Have Completed Or The Highest Degree You Have Received? [id number] [email or web address] Information not available 01/23/2023 Have There Been Any Changes To Your Family Or Social Situation? No [email or web address] Information not available 01/23/2023 What Is The Fluoride Status Of Your Home? Unknown Information not available 01/23/2023 When Did You Quit Smoking? 1-5yearssince lastcigarette [email or web address] Information not available 01/23/2023 Are There Any Guns Present In Your Home? Yes [email or web address] Information not available 01/23/2023 Do You Use Insect Repellent Routinely? No Information not available 01/23/2023 Where Do You Live? Apartment [email or web address] Information not available 01/23/2023 Do You Have A Medical Power Of Kitchen And Bath Designer? No [email or web address] Information not available 01/23/2023 What Was The Date Of Your Most Recent Tobacco Screening? 01/23/2023 [email or web address] Information not available 01/23/2023 What Is Your Current Pack Years? 30ormorepacky ears Information not available 01/23/2023 Have You Ever Been Counseled For Unhealthy Alcohol Use? No [email or web address] Information not available 01/23/2023 Do You Have Any Pets? No [email or web address] Information not available 01/23/2023 What Is Your Relationship Status? [id number] Information not available 06/26/2022 Do You Use Your Seat Belt Or Car Seat Routinely? Yes [email or web address] Information not available 01/23/2023 Do You Have Smoke And Carbon Monoxide Detectors In Your Home? Yes [email or web address] Information not available 01/23/2023 At What Age Did You Start Smoking Tobacco? 10 Information not available 01/23/2023 Are You Passively Exposed To Smoke? No [email or web address] Information not available 01/23/2023 Are There Any Smokers In Your House? No Information not available 01/23/2023 How Much Tobacco Do You Smoke? No [id number] Information not available 06/26/2022 What Types Of Sporting Activities Do You Participate In? None [email or web address] Information not available 01/23/2023 Do You Use Sunscreen Routinely? No [email or web address] Information not available 01/23/2023 Has Tobacco Cessation Counseling Been Provided? No [email or web address] Information not available 01/23/2023 How Many Years Have You Smoked Tobacco? 45 Information not available 01/23/2023 Have You Recently Traveled Abroad? No [email or web address] Information not available 01/23/2023 Do You Have Difficulty Walking Or Climbing Stairs? No [email or web address] Information not available 01/23/2023 Do You Have Any Dietary Restrictions? No [email or web address] Information not available 01/23/2023 How Many Days In The Past Year Have You Consumed 5 Or More Drinks? 45 [email or web address] Information not available 01/23/2023 Sex: Male Functional Status Question Answer Note LastModified by Architonic[employer] ion Details LastModified Time Do you or have you ever used smokeless tobacco? Never used smokeless tobacco MIGRATION.[id number] Information not available 06/26/2022 Are you currently employed? No [email or web address] Information not available 01/23/2023 Do you have transportation difficulties? No [email or web address] Information not available 01/23/2023 Are you able to care for yourself independently? Yes [email or web address] Information not available 01/23/2023 Do you have difficulty dressing, bathing, grooming, or toileting? No [email or web address] Information not available 01/23/2023 Do you or have you ever used e-cigarettes or vape? Never used electronic cigarettes [email or web address] Information not available 01/23/2023 What is your exercise level? Moderate walks & does situps daily MIGRATION.[id number] Information not available 06/26/2022 Do you use any illicit or recreational drugs? No [email or web address] Information not available 01/23/2023 Do you or have you ever used any other forms of tobacco or nicotine? No [email or web address] Information not available 01/23/2023 What is your level of alcohol consumption? Moderate MIGRATION.[id number] Information not available 06/26/2022 Are you able to walk independently without assistance or assistive devices? YESWOREST [email or web address] Information not available 01/23/2023 Do you have difficulty doing errands alone? No [email or web address] Information not available 01/23/2023 What is your occupation? retired [email or web address] Information not available 01/23/2023 Mental Status Question Answer Note LastModified by Organizat ion Details LastModified Time Do you feel stressed (tense, restless, nervous, or anxious, or unable to sleep at night)? [id number] [email or web address] Information not available 01/23/2023 Do you have difficulty concentrating, remembering or making decisions? No [email or web address] Information no t available 01/23/2023 Family History Relationship Description Onset Age of this Age Resolved Age Notes LastModified by Organization Details LastModified Time Mother Malignant neoplasm of stomach Not available 12/28 14:32:22 Father Malignant neoplasm of pancreas Not available 12/28 14:32:22 Brother Hypertensive disorder [id number] Not available 06/26/2022 03:12:37 Brother Cirrhosis of liver stage 4 [email or web address] Not available 01/23/2023 14:32:22 Medical History Condition Response NERVE DISEASE Y BLINDNESS N RHEUMATIC FEVER N KIDNEY STONES N BLADDER PROBLEMS N OTHER # 1 N POLIO N LUNG DISEASE/DISORDER N RADIATION / CHEMOTHERAPY N COPD N Other # 2 N BLOOD DISEASES N SURGERY N EAR OR HEARING PROBLEMS N MUMPS N DEPRESSION (INCLUDING POST ) N BOWEL PROBLEMS Y STROKE/TIA N ULCERS N BENIGN PROSTATIC HYPERPLASIA N MEASLES N MYOCARDIAL INFARCTION N OBESITY N GERD/NAUSEA N ANEURYSM N URINARY/BLADDER/KIDNEY PROBLEMS N INPATIENT PSYCH CARE N CORONARY ARTERY DISEASE (CAD) N ADDICTION CONCERNS N Impotence N ENDOMETRIOSIS N USE OF BLOOD THINNERS N SKIN PROBLEMS N GASTROINTESTINAL DISORDER N PERIPHERAL VASCULAR DISEASE N MUSCLE,JOINT OR BONE PROBLEMS N GASTROINTESTINAL BLEEDING N BLOOD CLOTS N ASTHMA N CATARACTS N ERECTILE DYSFUNCTION N VARICOSITIES N GI PROBLEMS N Low Testosterone N INFERTILITY N AIDS/HIV N LIVER DISEASE N MALE HYPOGONADISM N HYPERTENSION Y Deficiency N ANXIETY DISORDER N BLOOD TRANSFUSION N ANEMIA/BLOOD DISORDER N CHRONIC EAR INFECTIONS N BRONCHITIS N TUBERCULOSIS N GLAUCOMA N FOOT PROBLEM N DIVERTICULITIS N SLEEP APNEA N CHICKENPOX N INFECTIOUS DISEASE N PROSTATE N HEART ARRHYTHMIA N INSOMNIA N HIGH CHOLESTEROL / HYPERLIPIDEMIA Y HYPERTHYROIDISM N EYE PROBLEMS N NEUROLOGICAL PROBLEMS N EDEMA N CHRONIC PAIN SYNDROME N HYPOTHYROIDISM N CONSTIPATION N CAROTID BLOCKAGE N BACK / NECK PROBLEMS N HAVE YOU BEEN HOSPITALIZED OR SEEN IN [facility] IN THE PAST YEAR ? N ATHEROSCLEROSIS N BREAST PROBLEMS N DIALYSIS N ECZEMA N OSTEOPOROSIS N ARTHRITIS Y APPENDICITIS N DIABETES, TYPE N BAD TEETH N ENT N HEARTBURN / REFLUX N AUTISM SPECTRUM DISORDER (ASD) N HEPATITIS / LIVER DISEASE N PULMONARY DISEASE N GOUT N SLEEP DISORDER N ALZHEIMER'S DISEASE N Brain Problems N HERPES N DEMENTIA N SEIZURES/EPILEPSY N HEADACHES/MIGRAINES N VASCULAR DISEASE N PACEMAKER N Blood Disorder N DIZZINESS N KIDNEY DISEASE N HEART DISEASE/HEART PROBLEMS N MULTIPLE SCLEROSIS N CARDIAC ARRHYTHMIA N CANCER: SPECIFY N ANESTHESIA COMPLICATIONS N Gall Stones N ATRIAL FIBRILLATION N PULMONARY EMBOLISM N AUTOIMMUNE DISEASE N Immunizations Vaccine Type Date Status Note Provider Nam e and Address Organization Details Recorded Time SARS-COV-2 (COVID-19) vaccine, UNSPECIFIED 3 completed Not Available [facility] 01/15/2023 06:53:29 Influenza, high-dose, quadrivalent, PF 3 completed RACHAEL Barrera, [facility] [employer] [facility] 01/15/2023 12:20:40 SARS-COV-2 (COVID-19) vaccine, UNSPECIFIED 3 completed KHADAR Rutledge, [facility] [employer] [facility] 01/23/2023 14:32:27 Influenza, split virus, trivalent, preservative 3 completed Not Available [facility] 01/15/2023 06:53:29 COVID-19, mRNA, LNP-S, PF, 30 mcg/0.3 mL dose 1 completed Not Available [facility] 01/15/2023 06:53:29 Influenza, high-dose, quadrivalent, PF 0 completed Not Available [facility] 01/15/2023 06:53:29 COVID-19, mRNA, LNP-S, PF, 30 mcg/0.3 mL dose 2 completed Not Available [facility] 01/15/2023 06:53:29 Influenza, high-dose, quadrivalent, PF 2 completed Not Available [facility] 01/15/2023 06:53:29 zoster recombinant 2 completed Not Available [facility] 01/15/2023 06:53:29 zoster recombinant 2 completed Not Available [facility] 01/15/2023 06:53:29 COVID-19, mRNA, LNP-S, PF, 30 mcg/0.3 mL dose 2 completed Not Available [facility] 01/15/2023 06:53:29 COVID-19 vaccine, vector-nr, rS-Ad26, PF, 0.5 mL 1 completed Not Available [facility] 01/15/2023 06:53:29 Influenza, high-dose, trivalent, PF 9 completed Not Available [facility] 01/15/2023 06:53:29 pneumococcal polysaccharide PPV23 9 completed Not Available [facility] 01/15/2023 06:53:29 Influenza, high-dose, trivalent, PF 8 completed Not Available [facility] 01/15/2023 06:53:29 Pneumococcal conjugate PCV 13 8 completed Not Available [facility] 01/15/2023 06:53:29 Influenza, high-dose, trivalent, PF 7 completed Not Available [facility] 01/15/2023 06:53:29 Influenza, high-dose, trivalent, PF 6 completed Not Available [facility] 01/15/2023 06:53:29 Influenza, split virus, quadrivalent, PF 5 completed Not Available [facility] 01/15/2023 06:53:29 Influenza, split virus, trivalent, preservative 4 completed Not Available [facility] 01/15/2023 06:53:29 Past Encounters Encounter ID Performer Location Encounter Start Date Encounter Closed Date Diagnosis/Indication Diagnosis SNOMED-CT Code Diagnosis ICD10 Code Diagnosis IMO Codes Diagnosis Note [id number] Rob Easley MD [facility] [place] [facility] [address] [facility] [address] [address] 08/01/2020 00:00:00 08/13/2020 10:04:50 [id number] Pierre jacobs MD [facility] [address] [address] 01/04/2021 00:00:00 01/04/2021 13:45:39 [id number] Pierre jacobs MD [facility] [address] [address] 01/11/2021 00:00:00 01/11/2021 14:05:32 [id number] Rob Easley MD [facility] Internal [facility] [place] [address] [address] 08/06/2021 00:00:00 08/19/2021 21:36:00 [id number] Rob Easley MD [facility] [address] [facility] [address] [address] 02/18/2022 00:00:00 02/19/2022 17:11:23 [id number] Rob Easley MD [facility] [address] [facility] [address] [address] 03/18/2022 00:00:00 03/23/2022 17:53:00 [id number] Ivan Carter MD [facility] [place] [id number] [facility] [address] [place] [address] 06/11/2022 00:00:00 06/11/2022 11:23:15 [id number] Rob Easley MD [facility] Internal [facility] [place] [address] [facility] [address] [address] 06/12/2022 00:00:00 06/12/2022 22:23:56 [id number] Rob Easley MD [facility] [place] [address] [facility] [address] [address] 08/19/2022 10:42:05 08/19/2022 11:01:00 Benign essential hypertension 4932700 I10 Eruption 752288144 R21 Screening for malignant neoplasm of prostate 883342618 Z12.5 Pure hypercholesterolemia 278795375 E78.00 [id number] Rob Easley MD [facility] Internal Med [place] [address] [place] [address] 09/16/2022 11:28:13 09/16/2022 12:15:50 Benign essential hypertension 0430014 I10 Neuropathy 514145431 G62 .9 [id number] Rob Easley MD [facility] Internal Med [place] [address] [facility] [address] [place] [address] 12/18/2022 09:50:49 12/18/2022 10:43:48 Benign essential hypertension 6526640 I10 [id number] Rob Easley MD [facility] Internal Med [address] [address] [facility] [address] [place] [address] 01/23/2023 14:31:27 01/23/2023 15:41:46 Eruption 648958766 R21 Benign ess ential hypertension 9019795 I10 Pure hypercholesterolemia 376074811 E78.00 Health Concerns Section Related Observation LastModified by Organization Detai ls LastModified Time None Recorded Concern Status LastModified by Organization Details LastModified Time None Recorded Advance Directives Directive N: Patient declined, stating he already has the information Payers Insurance Date Sequence Insurance Name Policy Number Policy Park Covered Member ID Park Member ID Guarantor Name 07/21/2023 1 [employer] (MEDICARE REPLACEMENT /ADVANTAGE - PPO) [id number] Angel Aguilar [id number] Angel Aguialr Notes Date Note Type Note Provider Name and Address Organization Details Recorded Time 08/19/2022 text/html Hypertension no headache no dizzinessRash on buttocks been there for a couple of monthsDyslipidemia taking rosuvastatin Try to follow low-fat diet Rob Easley MD [address] [facility], [place], [address], [place] [facility] [employer] 08/19/2022 22:40:12 09/16/2022 text/html short interval follow-up insurance company did not pay for telmisartan put him on losartan a she is not in control Rob Easley MD [address], [place], [address], [employer] [facility] [employer] [facility] 09/17/2022 08:29:21 12/18/2022 text/html short interval follow-up after adding nifedipine which he is tolerating well Rob Easley MD [address], [place], [address], [employer] [facility] [employer] [facility] 12/18/2022 22:55:26 01/23/2023 text/html Hypertension no headache no dizzinessRash on buttocks been there for a couple of monthsDyslipidemia taking rosuvastatin Try to follow low-fat dietRash getting a little bit better Rob Easley MD [address], [place], [address], [employer] [facility] [employer] [facility] 02/02/2023 18:31:14
--- OUTSIDE RECORDS SUMMARY | 2025-03-05 08:15 | XMS_ITS | Encounter Summary ---
Author Organization [facility] Address [address] [place] [address] Care Team Providers Care Sheet Heater Helper Name Role Phone Unavailable Primary Care Provider Unavailabl e Encounter Details Date Type Department Care Team (Late st Contact Info) Description 06/11/2024 Lab Requisition [facility] - DermPath Lab [address], [place] [id number] Evy Guan MD [address] [place] [address] [place] [phone] Dermatitis, unspecified Social History Tobacco Use Types [...] Priority Date/Time Associated Diagnosis Comments DERMATOPATHOLOGY Routine 06/11/2024 12:0 0 AM ADMINISTRATOR Dermatitis, unspecified documented in this encounter Results * DERMATOPATHOLOGY (06/11/2024 12:00 AM ADMINISTRATOR) Case Report Dermatopathology Report Case: [id number] Authorizing Provider: Evy Guan MD Collected: 06/11/2024 12:00 AM Ordering Location: [facility] - Received: 06/14/2024 01:11 PM DermPath Lab Pathologist: Mahamed Maldonado MD Specimen: Skin, left mid back 5 2:13 PM ADMINISTRATOR DERMATOPATHOLOGY LABORATORY Final Diagnosis Specimen A. 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 The specimen consists of a shave biopsy measuring 71o74v0 mm. Jar 0. 2:13 PM [facility] DERMATOPATHOLOGY LABORATORY Microscopic Description Specimen A. SKIN, left mid back: There is psoriasiform hyperplasia of the epidermis with focal parakeratosis and spongiosis. There is a superficial, mainly lymphohistiocytic inflammatory infiltrate with rare eosinophils. Grocott's methenamine silver (GMS) stain fails to highlight fungal elements in the available sections. The hematoxylin and eosin stain is reviewed; immunohistochemical stains are performed to further characterized the infiltrate. CD3 highlights numerous T-cells in the banded infiltrate and few scattered within the epidermis. The CD4:CD8 ratio is approximately 4:1. Cd1a highlights Langerhans cells in the epidermis. IL-36 immunohistochemical stain demonstrates moderate to strong staining of the upper epidermis. COMMENT: The histological differential diagnosis includes early / partially treated psoriasis, which is favored, a contact dermatitis, and a chronic eczematous dermatitis. The immunophenotype of the lymphocytic infiltrate is not consistent with that of mycosis fungoides, making this diagnosis less favored. If there is continued clinical concern for mycosis fungoides consideration should be given to a re biopsy of a sun protected area that has not been treated for two to three weeks. Clinicopathologic correlation is recommended. 2:13 PM [facility] DERMATOPATHOLOGY LABORATORY Disclaimer An external and internal positive and negative controls are appropriate for the histochemical, immunohistochemical and immunofluorescence stain(s) in this case (if any), except where stated explicitly. The performance characteristics of the stain(s) cited in this report were developed and its performance characteristic determined by the Dermatopathology Laboratory at [facility], directed by Dr. Cora Maldonado. These tests need not be, and therefore are not, approved by the [place] Food and Drug Administration. The tests are used for clinical purposes. Billing Codes Specimen Charges Stain Charges 17791 1 [id number] 54450 [id number] 42020 1 1 1 1 1 1 02/21/202 5 2:13 PM ADMINISTRATOR DERMATOPATHOLOGY LABORATORY Embedded Images 5 2:13 PM ADMINISTRATOR DERMATOPATHOLOGY LABORATORY Pathology/Cytolog y TISSUE SPECIMEN FROM SKIN / Unknown 06/11/2024 06/14/2024 1:11 PM ADMINISTRATOR us Evy Guan MD LAB - PATHOLOGY/CYTOLOGY ORDERAB LES Final Result DERMATOPATHOLOGY LABORATORY [facility] - Department of Dermatology [facility] [address] [place] [address], [address] [phone] documented in this encounter Visit Diagnoses Diagnosis Dermatitis, unspecified documented in this encounter
--- OUTSIDE RECORDS SUMMARY | 2025-03-05 08:15 | XMS_ITS | Encounter Summary ---
Author Organization [facility] Healthcare Address [address] [place] [address] Care Team Providers Care Semiautomatic Taper Operator Name Role Phone Rob Easley MD Primary Care Provider [phone] Jcarlos Morrow MD Unavailable Benjamin Garcia MD Unavailable [phone] Felicia Walker NP Unavailable [phone] David Sosa MD Unavailable [phone] Encounter Details Date Type Department Care Team (Late st Contact Info) Description 03/01/[address] 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 Gender Identity Male 10/10/2021 11:17 AM CDT Sexual Orientation Straight 10/10/2021 11 :17 AM CDT Occupation Industry Job Start Date Job End Date 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 Not on file Not on file Not on f ile documented as of this encounter Plan of Treatment Not on file documented as of this encounter Visit Diagnoses Not on filedocumented in this encounter Care Teams Semiautomatic Taper Operator Relationship Specialty Start Date End Date Rob Easley MD PCP - General Internal Medicine 07/04/17 Jcarlos Morrow MD Referring Physician Urology 11/11/18 Benjamin Garcia MD Radiation Oncologist Radiation Oncology 11/21/18 Felicia Walker NP [address] [facility] [address] [facility] [address] [place] [address] Nurse Practitioner Nurse Practitioner 04/13/21 David Sosa MD [address] [facility] [address] [facility] [address] [place] [address] Radiation Oncologist Radiation Oncology 10/11/22 documented as of this encounter
--- OUTSIDE RECORDS SUMMARY | 2025-03-05 08:15 | XMS_ITS | Encounter Summary ---
Author Organization [facility] Address [address] [place] [address] Care Team Providers Care Promos Executive Producer Name Role Phone Unavailable Primary Care Provider Unavailabl e Encounter Details Date Type Department Care Team (Late st Contact Info) Description 02/11/2023 Lab Requisition [facility] - DermPath Lab [address] [facility], [place] [id number] Hebert Freeman PA-C [address] [place] [address] Dermatitis, unspecified Social History Tobacco Use Types [...] Priority Date/Time Associated Diagnosis Comments DERMATOPATHOLOGY Routine 02/11/2023 12:0 0 AM CDT Dermatitis, unspecified documented in this encounter Results * DERMATOPATHOLOGY (02/11/2023 12:00 AM CDT) Case Report Dermatopathology Report Case: [id number] Authorizing Provider: Hebert Freeman PA-C Collected: 02/11/2023 12:00 AM Ordering Location: [facility] DermPath Lab Received: 02/12/2023 11:13 AM Pathologist: Isabel Mckay MD Specimen: Skin, left rib cage 12:22 PM CDT DERMATOPATHOLOGY LABORATORY Addendum 1 Grocott's methenamine silver (GMS) stain fails to highlight fungal elements in the available sections. 12:22 PM CDT DERMATOPATHOLOGY LABORATORY Addendum electronically signed by Isabel Mckay MD on 02/14/2023 at 1222 CDT Final Diagnosis Specimen A. 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 The specimen consists of a punch biopsy measuring 4x4x5 mm. Jar 0. 12:22 PM T DERMATOPATHOLOGY LABORATORY Microscopic Description Specimen A. SKIN, left rib cage: There is focal parakeratosis and spongiosis. In the dermis there is a mainly superficial perivascular lymphohistiocytic inflammatory infiltrate with eosinophils. COMMENT: The histological differential diagnosis includes a contact dermatitis, an eczematous drug eruption, and less likely the urticarial phase of bullous pemphigoid. A GMS stain will be performed and results reported in an addendum. 12:22 PM T DERMATOPATHOLOGY LABORATORY Disclaimer An external and internal positive and negative controls are appropriate for the histochemical, immunohistochemical and immunofluorescence stain(s) in this case (if any), except where stated explicitly. The performance characteristics of the stain(s) cited in this report were developed and its performance characteristic determined by the Dermatopathology Laboratory at [facility], directed by Dr. Cora Maldonado. These tests need not be, and therefore are not, approved by the [place] Food and Drug Administration. The tests are used for clinical purposes. Billing Codes Specimen Charges Stain Charges 89882 1 3 12:22 PM CDT DERMATOPATHOLOGY LABORATORY Embedded Images 12:22 PM CDT DERMATOPATHOLOGY LABORATORY Pathology/Cytolog y TISSUE SPECIMEN FROM SKIN / Unknown 02/11/2023 02/12/2023 11:13 AM CDT Hebert Freeman PA-C LAB - PATHOLOGY/CYTOLOGY CATIE BENSON Edited Result - Final DERMATOPATHOLOGY LABORATORY [facility] - Department of Dermatology [facility] Specialized Medicine [address] [place] [address], [address] [phone] documented in this encounter Visit Diagnoses Diagnosis Dermatitis, unspecified documented in this encounter
--- OUTSIDE RECORDS SUMMARY | 2025-03-05 08:15 | XMS_ITS | Clinical Summary ---
Author Organization [facility] [address] Address [address] [place] [address] Care Team Providers Care Construction Inspector Name Role Phone Rob Easley MD Primary Care Provider [phone] Jcarlos Morrow MD Unavailable Felicia Walker NP Unavailable [phone] David Sosa MD Unavailable [phone] Allergies No known active allergies Medications nebivolol (BYSTOLIC) 10 mg tablet Take 10 mg by mouth daily. Active rosuvastatin (CRESTOR) 10 mg tablet Take 10 mg by mouth daily. Active omega-3 fatty acids (LOVAZA) 1 gram capsule Take 2 g by mouth 2 (two) times a day. Active multivitamin capsule Take 1 capsule by mouth daily. Active tamsulosin (FLOMAX) 0.4 mg extended release capsuleIndicati ons:Malignant neoplasm of prostate (HCC) TAKE 1 CAPSULE(0.4 MG) BY MOUTH EVERY NIGHT 90 capsule 09/01/2020 Active amLODIPine (NORVASC) 5 mg tablet Take 1 tablet (5 mg total) by mouth daily Active telmisartan (MICARDIS) 80 mg tablet Take 1 tablet (80 mg total) by mouth daily 02/28/2023 Active Dupixent Pen pen injector Active Active Problems Problem Noted Date Diagnosed Date Encounter for postoperative care 04/17/2021 Abnormal liver function tests 04/17/2021 Disorder of bursae of shoulder region 04/17/2021 Knee pain 04/17/2021 Pure hypercholesterolemia 04/17/2021 Rupture of quadriceps tendon 04/17/2021 Shoulder joint pain 04/17/2021 Skin lesion 04/17/2021 Tinea pedis 04/17/2021 Encounter for follow-up surveillance of prostate cancer 04/13/2021 Carcinoma of prostate 03/31/2019 Prostate cancer 11/21/2018 Cancer Staging:Clinical stage from 10/16/2018: cT1c, PSA: 4.2, Grade Group: 2 - Signed by Uri Quinteros MD on 11/21/2018 Cervical spondylosis 09/15/2017 Peripheral neuropathy 09/15/2017 Neck pain 09/12/2017 Postural dizziness with presyncope 07/23/2017 Benign essential hypertension 07/23/2017 NSVT (nonsustained ventricular tachycardia) 06/27 PAT (paroxysmal atrial tachycardia) 07/23/2017 Hyperlipidemia LDL goal <130 07/23/2017 Dizziness 07/23/2017 Irritable bowel syndrome 05/20/2017 Dizziness 02/25/2017 Surgical History Surgery Date Site/Laterality Comments KNEE SURGERY repair of torn quadracept tendon [place] TONSILLECTOMY PRIMARY/SEC ONDARY <AGE 10 Tonsillectomy - (Added by TW Conv) HAND SURGERY Hand Surgery - (Added by TW Conv) Medical History Medical History Date Comments Hypertension Hyperlipidemia Prostate CA IBS (irritable bowel syndrome) Family History Medical History Relation Name Comments Brain Aneurysm Brother Pancreatic cancer Father Stomach cancer Mother Hypertension Other 1 Family history of hypertension - (Added by TW Conv) Heart disease Other 2 Family history of cardiac disorder - (Added by TW Conv) Cancer Other 3 Family history of malignant neoplasm - (Added by TW Conv) Colon cancer Paternal Grandfather Relation Name Status Comments Brother (Age 15) Father (Age 75) Mother (Age 69) Other 1 Other 2 Other 3 Paternal Grandfather Social History Tobacco Use Types Packs/Day Years Used Date Smoking Tobacco: Former Cigarettes 0.3 50 1 - 02/25/2017 Smokeless Tobacco: Former Snuff, Chew Quit: 1980 Tobacco Cessation:Counseling Given: Not Answered Alcohol Use Standard Drinks/Week Comments Yes 6 [...] and Family Once a week 11/24/2018 Attends Confucianism Services Never 11/24 Active Member of Clubs [...] Living Expenses Not hard at all 11/24/2018 [facility] of Occupat ional Health - Occupational Stress [...] on file Legal Sex Male 11:47 PM OVERNIGHT CAREGIVER Gender Identity Male 10/10/2021 11:17 AM CDT Sexual Orientation Straight 10/10/2021 11 :17 AM CDT 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 file Not on f ile Last Filed Vital Signs Vital Sign Reading Time Taken Comments Blood Pressure 146/87 04/17/2021 10:02 AM OVERNIGHT CAREGIVER Pulse 59 04/17/2021 10:02 AM OVERNIGHT CAREGIVER Temperature 37.1 C (98.8 F) 11/24/2018 9:30 AM CDT Respiratory Rate 18 02/17/2019 11:10 AM CDT Oxygen Saturation 98% 04/17/2021 10:02 AM OVERNIGHT CAREGIVER Inhaled Oxygen Concentration - - Weight 99 kg (218 lb 4.8 oz) 04/13/2024 10:58 AM OVERNIGHT CAREGIVER Height 182.9 cm (6' 0.01) 04/13/2024 10:[address] Body Mass Index 29.6 04/13/2024 10:58 AM OVERNIGHT CAREGIVER Plan of Treatment Health Maintenance Due Date Last Done Comments Depression Screening 1948 Fall Risk Assessment 1948 Hepatitis C Screening 1948 DTaP/Tdap/Td Vaccine (1 - Tdap) 1959 Hepatitis B Screening 1966 Abdominal Aortic Aneurysm (A AA) Screen 2013 Well Visit 65+ 2013 Influenza Vaccine (#1) 2024 9, 01/28/2018, 02/20/2017, Additional history exists Pneumococcal vaccine 65+ Completed 08/05/2018, 04/29 Zoster Vaccine Completed 12/17/2021, 10/01/2021 Insurance MEDICARE [facility] MEDICARE [facility] MEDICARE Care Teams Construction Inspector Relationship Specialty Start Date End Date Rob Easley MD PCP - General Internal Medicine 07/04/17 Jcarlos Morrow MD Referring Physician Urology 11/11/18 Felicia Walker NP [address] [place] [address] Nurse Practitioner Nurse Practitioner 04/13/21 David Sosa MD [address] [place] [address] Radiation Oncologist Radiation Oncology 10/11/22
--- OUTSIDE RECORDS SUMMARY | 2025-03-05 08:15 | XMS_ITS | Encounter Summary ---
Author Organization [facility] Healthcare Address [address] [place] [address] Care Team Providers Care Electrical Assembly Technician Name Role Phone Rob Easley MD Primary Care Provider [phone] Jcarlos Morrow MD Unavailable Benjamin Garcia MD Unavailable [phone] Felicia Walker NP Unavailable [phone] David Sosa MD Unavailable [phone] Encounter Details Date Type Department Care Team (Late st Contact Info) Description 09/01/2019 Telephone [facility] Advanced Medicine Radiation Oncology [address] [facility] [place] [address] Mariama Mazariegos MA Social History Tobacco Use [...] and Family Once a week 11/24/2018 Attends Synagogue Services Never 11/24 Active Member of Clubs [...] Living Expenses Not hard at all 11/24/2018 [facility] of Occupat ional Health - Occupational Stress [...] on file Legal Sex Male 11:47 PM MANAGER PAID Gender Identity Male 10/10/2021 11:17 AM CDT Sexual Orientation Straight 10/10/2021 11 :17 AM CDT 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 [facility] [address] [place] [address] Nurse Practitioner Nurse Practitioner 04/13/21 David Sosa MD [address] [facility] [address] [place] [address] Radiation Oncologist Radiation Oncology 10/11/22 documented as of this encounter
--- OUTSIDE RECORDS SUMMARY | 2025-03-05 08:15 | XMS_ITS ---
Author Organization [facility] [address] Address [address] [place] [address] Care Team Providers Care Instrument Setter Name Role Phone Rob Easley MD Primary Care Provider [phone] Jcarlos Morrow MD Unavailable Felicia Walker NP Unavailable [phone] David Sosa MD Unavailable [phone] Active Problems Problem Noted Date Diagnosed Date [...] 07/23/2017 Irritable bowel syndrome 05/20/2017 Dizziness 02/25/2017 Current Treatment and Therapy Plans No current plan information found. Past Treatment and Therapy Plans No past plan information found. Radiation Treatments * Course C1_PROSTATE_2019 03/03/2019 - 04/13/2019 Treatment Period Energy Fraction Dose Fractions Total Dose Plans Planned Prostate_SV 03/03/2019 - 04/13/2019 250 28 / 7,000 Reference Points Delivered PTV_7000 03/03/2019 - 04/13/2019 7,000
--- OUTSIDE RECORDS SUMMARY | 2025-03-05 08:15 | XMS_ITS | Encounter Summary ---
Author Organization [facility] Address [address] [place] [address] Care Team Providers Care Fitness Teacher Name Role Phone Unavailable Primary Care Provider Unavailabl e Encounter Details Date Type Department Care Team (Late st Contact Info) Description 09/01/2023 Lab Requisition [facility] - DermPath Lab [address] [facility] [place] [phone] Adal Moctezuma MD [facility] DERMATOLOGY [address] [place] [phone] Neoplasm of uncertain behavior of skin Social History Tobacco Use Types Packs/Day Years [...] Priority Date/Time Associated Diagnosis Comments DERMATOPATHOLOGY Routine 09/01/2023 12:0 0 AM CDT Neoplasm of uncertain behavior of skin documented in this encounter Results * DERMATOPATHOLOGY (09/01/2023 12:00 AM CDT) Case Report Dermatopathology Report Case: [id number] Authorizing Provider: Adal Moctezuma MD Collected: 09/01/2023 12:00 AM Ordering Location: [facility] Physician [facility] - Received: 09/02/2023 01:13 PM DermPath Lab Pathologist: Penelope Henry MD Specimen: Skin, left posterior arm 4 4:41 PM CDT DERMATOPATHOLOGY LABORATORY Final Diagnosis Specimen A. 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 4:41 PM CDT DERMATOPATHOLOGY LABORATORY Gross Description Specimen A: Received is one formalin filled container labeled with the patient's name and designated left posterior arm. The specimen consists of a shave biopsy measuring 7x7x1 mm. Jar 0. 4:41 PM CDT DERMATOPATHOLOGY LABORATORY Microscopic Description Specimen A. SKIN, left posterior arm: The epidermis is focally necrotic and covered with a scale-crust. There is fibrin at the base. The adjacent epidermis shows acanthosis, hypergranulosis, and hyperkeratosis. The papillary dermis is fibrotic. There is focal gently papillated epidermal hyperplasia, hypergranulosis, and laminated hyperorthokeratosis . Additional deeper sections were obtained and reviewed. 4:41 PM CDT DERMATOPATHOLOGY LABORATORY Disclaimer An external and internal positive and negative controls are appropriate for the histochemical, immunohistochemical and immunofluorescence stain(s) in this case (if any), except where stated explicitly. The performance characteristics of the stain(s) cited in this report were developed and its performance characteristic determined by the Dermatopathology Laboratory at [facility], directed by Dr. Cora Maldonado. These tests need not be, and therefore are not, approved by the [place] Food and Drug Administration. The tests are used for clinical purposes. Billing Codes Specimen Charges Stain Charges 67949 1 4:41 PM CDT DERMATOPATHOLOGY LABORATORY Embedded Images 4:41 PM CDT DERMATOPATHOLOGY LABORATORY Pathology/Cytolog y TISSUE SPECIMEN FROM SKIN / Unknown 09/01/2023 09/02/2023 1:13 PM CDT us Adal Moctezuma MD LAB - PATHOLOGY/CYTOLOGY ORDE KELLEY Final Result DERMATOPATHOLOGY LABORATORY [facility] - Department of Dermatology [address], [address] [phone] documented in this encounter Visit Diagnoses Diagnosis Neoplasm of uncertain behavior of skin documented in this encounter
--- OUTSIDE RECORDS SUMMARY | 2025-03-05 08:15 | XMS_ITS | Clinical Summary ---
Author Organization [facility] Address [address] [facility] [place] [address] Care Team Providers Care Production Staff Worker Name Role Phone Unavailable Primary Care Provider Unavailabl e Source Comments [facility],non-owned Affiliates and Associated Physician Practices is amultiple site organization consisting of ambulatory clinics and hospital sitesin [place], [place], [place] and [place]. This disclosure is being madepursuant to the Care Everywhere program and may not contain all information available regarding this patient. Last updated 18.[facility] Social History Tobacco Use Types Packs/Day Years Used Date Smoking Tobacco: Never Assessed Sex and Gender Information Value Date Recorded Sex Assigned at Not on file Legal Sex Male 8:57 AM CDT Gender Identity Not on file Sexual Orientation Not on file Plan of Treatment Health Maintenance Due Date Last Done Comments HEPATITIS C SCREENING 05/06/1966 DTAP/TDAP/TD VACCINES (1 - Tdap) 1967 PNEUMOCOCCAL VACCINE 50+ (1 of 1 - PCV) 1998 ZOSTER VACCINE (1 of 2) 1998 Respiratory Syncytial Virus (RSV) Vaccine Pt: or over 60 yrs (1 - 1-dose 75+ series) 2023 DEPRESSION SCREENING 04/28/2024 MEDICARE AWV CALENDAR YEAR 2024 COVID-19 VACCINE (1 - 2023-2 5 season) 2024 INFLUENZA VACCINE (#1) 2024 HEPATITIS B VACCINE Aged Out No longe r eligible based on patient's age to complete this topic HIB VACCINE Aged Out No longer eligi ble based on patient's age to complete this topic HPV VACCINE Aged Out No longer eligi ble based on patient's age to complete this topic MENINGOCOCCAL (Group B) VACC INE SHARED DECISION-MAKING Aged Out No longer eligibl e based on patient's age to complete this topic MENINGOCOCCAL GROUPS A/C/Y/W VACCINE Aged Out No longer eligible b ased on patient's age to complete this topic Insurance [employer] MEDICARE ADV
--- OUTSIDE RECORDS SUMMARY | 2025-03-05 08:39 | XMS_ITS | Encounter Summary ---
Author Organization [facility] Address [address] [place] [address] Care Team Providers Care Consultant Technology Name Role Phone Unavailable Primary Care Provider Unavailabl e Encounter Details Date Type Department Care Team (Late st Contact Info) Description 09/01/2023 Lab Requisition [facility] - DermPath Lab [address] [facility] [place] [phone] Adal Moctezuma MD [facility] DERMATOLOGY [address] [place] [phone] Neoplasm of uncertain behavior of skin [...] AM CDT) Case Report Dermatopathology Report Case: [id number] Authorizing Provider: Adal Moctezuma MD Collected: 09/01/2023 12:00 AM Ordering Location: [facility] Physician [facility] - Received: 09/02/2023 01:13 PM DermPath Lab [...] characteristic determined by the Dermatopathology Laboratory at [facility], directed by Dr. Cora Maldonado. These tests need not be, and therefore are not, approved by the [place] Food and Drug Administration. The tests are used for clinical purposes. Billing Codes Specimen Charges Stain Charges 41690 1 4:41 PM CDT DERMATOPATHOLOGY LABORATORY Embedded Images 4:41 PM CDT DERMATOPATHOLOGY LABORATORY Pathology/Cytolog y TISSUE SPECIMEN FROM SKIN / Unknown 09/01/2023 09/02/2023 1:13 PM CDT us Adal Moctezuma MD LAB - PATHOLOGY/CYTOLOGY [place]DE [place] Final Result DERMATOPATHOLOGY LABORATORY [facility] - Department of Dermatology [address] [phone] documented in this encounter Visit Diagnoses Diagnosis Neoplasm of uncertain behavior of skin documented in this encounter
--- OUTSIDE RECORDS SUMMARY | 2025-03-05 08:39 | XMS_ITS | Clinical Summary ---
Author Organization [facility] [address] Address [address] [place] [address] Care Team Providers Care Nailing Machine Feeder Name Role Phone Rob Easley MD Primary Care Provider [phone] Jcarlos Morrow MD Unavailable Felicia Walker NP Unavailable [phone] David Sosa MD Unavailable [phone] Allergies No known active allergies Medications nebivolol [...] KNEE SURGERY repair of torn quadracept tendon [place] TONSILLECTOMY PRIMARY/SEC ONDARY <AGE 10 Tonsillectomy - [...] and Family Once a week 11/24/2018 Attends [employer] Never 11/24 Active Member of Clubs [...] Living Expenses Not hard at all 11/24/2018 [facility] of Occupat ional Health - Occupational Stress [...] on file Legal Sex Male 11:47 PM SIGN DESIGNER Gender Identity Male 10/10/2021 11:17 AM CDT Sexual Orientation Straight 10/10/2021 11 :17 AM CDT 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 file 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 on f ile Last Filed Vital Signs Vital Sign Reading Time Taken Comments Blood Pressure 146/87 04/17/2021 10:02 AM SIGN DESIGNER Pulse 59 04/17/2021 10:02 AM SIGN DESIGNER Temperature 37.1 C (98.8 F) 11/24/2018 9:30 AM CDT Respiratory Rate 18 02/17/2019 11:10 AM CDT Oxygen Saturation 98% 04/17/2021 10:02 AM SIGN DESIGNER Inhaled Oxygen Concentration - - Weight 99 kg (218 lb 4.8 oz) 04/13/2024 10:58 AM SIGN DESIGNER Height 182.9 cm (6' 0.01) 04/13/2024 10:[address] Body Mass Index 29.6 04/13/2024 10:58 AM SIGN DESIGNER Plan of Treatment Health Maintenance Due Date [...] Zoster Vaccine Completed 12/17/2021, 10/01/2021 Insurance MEDICARE [facility] MEDICARE [facility] MEDICARE Care Teams Nailing Machine Feeder Relationship Specialty Start Date End Date Rob Easley MD PCP - General Internal Medicine 07/04/17 Jcarlos Morrow MD Referring Physician Urology 11/11/18 Felicia Walker NP [address] [place] [address] Nurse Practitioner Nurse Practitioner 04/13/21 David Sosa MD [address] [place] [address] Radiation Oncologist Radiation Oncology 10/11/22
--- OUTSIDE RECORDS SUMMARY | 2025-03-05 08:39 | XMS_ITS | Encounter Summary ---
Author Organization [facility] Address [address] [place] [address] Care Team Providers Care Billet Straightener Name Role Phone Unavailable Primary Care Provider Unavailabl e Encounter Details Date Type Department Care Team (Late st Contact Info) Description 06/11/2024 Lab Requisition [facility] - DermPath Lab [address] [facility], [place] [id number] Evy Guan MD [address] [place] [address] [place] [phone] Dermatitis, unspecified Social History Tobacco Use Types [...] Comments DERMATOPATHOLOGY Routine 06/11/2024 12:0 0 AM LINE DRIVER Dermatitis, unspecified documented in this encounter Results * DERMATOPATHOLOGY (06/11/2024 12:00 AM LINE DRIVER) Case Report Dermatopathology Report Case: [id number] Authorizing Provider: Evy Guan MD Collected: 06/11/2024 12:00 AM Ordering Location: [facility] - Received: 06/14/2024 01:11 PM DermPath Lab Pathologist: Mahamed Maldonado MD Specimen: Skin, left mid back 5 2:13 PM LINE DRIVER DERMATOPATHOLOGY LABORATORY Final Diagnosis Specimen A. 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 The specimen consists of a shave biopsy measuring [id number] mm. Jar 0. 2:13 PM [facility] DERMATOPATHOLOGY LABORATORY Microscopic Description Specimen A. [...] weeks. Clinicopathologic correlation is recommended. 2:13 PM [facility] DERMATOPATHOLOGY LABORATORY Disclaimer An external and internal positive and negative controls are appropriate for the histochemical, immunohistochemical and immunofluorescence stain(s) in this case (if any), except where stated explicitly. The performance characteristics of the stain(s) cited in this report were developed and its performance characteristic determined by the Dermatopathology Laboratory at [facility], directed by Dr. Cora Maldonado. These tests need not be, and therefore are not, approved by the [place] Food and Drug Administration. The tests are used for clinical purposes. Billing Codes Specimen Charges Stain Charges 65295 1 19212 [id number] 73917 92166 07921 81168 1 1 1 1 1 1 02/21/202 5 2:13 PM LINE DRIVER DERMATOPATHOLOGY LABORATORY Embedded Images 5 2:13 PM LINE DRIVER DERMATOPATHOLOGY LABORATORY Pathology/Cytolog y TISSUE SPECIMEN FROM SKIN / Unknown 06/11/2024 06/14/2024 1:11 PM LINE DRIVER us Evy Guan MD LAB - PATHOLOGY/CYTOLOGY ORDERAB LES Final Result DERMATOPATHOLOGY LABORATORY [facility] - Department of Dermatology [facility] Specialized Medicine [address] [place] [address], [address] [phone] documented in this encounter Visit Diagnoses Diagnosis Dermatitis, unspecified documented in this encounter
--- OUTSIDE RECORDS SUMMARY | 2025-03-05 08:39 | XMS_ITS | Clinical Summary ---
Author Organization [email or web address] Address [address] [facility] [place] [address] Care Team Providers Care Machine Setup Operator Name Role Phone Unavailable Primary Care Provider Unavailabl e Source Comments [email or web address],non-owned Affiliates and Associated Physician Practices is amultiple site organization consisting of ambulatory clinics and hospital sitesin [place], [place], [place] and [place]. This disclosure is being madepursuant to the Care Everywhere program and may not contain all information available regarding this patient. Last updated 18.[email or web address] Social History Tobacco Use Types Packs/Day Years [...]
--- OUTSIDE RECORDS SUMMARY | 2025-03-05 08:39 | XMS_ITS | Encounter Summary ---
Author Organization [facility] Address [address] [place] [address] Care Team Providers Care Pipe Fitter Name Role Phone Rob Easley MD Primary Care Provider [phone] Jcarlos Morrow MD Unavailable Benjamin Garcia MD Unavailable [phone] Felicia Walker NP Unavailable [phone] David Sosa MD Unavailable [phone] Encounter Details Date Type Department Care Team (Late st Contact Info) Description 09/01/2019 Telephone [facility] Advanced Medicine Radiation Oncology [address] [facility] [place] [address] Mariama Mazariegos MA Social History Tobacco Use [...] and Family Once a week 11/24/2018 Attends Confucianist Services Never 11/24 Active Member of Clubs [...] Living Expenses Not hard at all 11/24/2018 [facility] - [...] on file Legal 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 Gender Identity Male 10/10/2021 11:17 AM CDT Sexual Orientation Straight 10/10/2021 11 :17 AM CDT Occupation Industry Job Start Date Job End Date 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 Not on file Not on file Not on f ile documented as of this encounter Plan of Treatment Not on file documented as of this encounter Visit Diagnoses Not on filedocumented in this encounter Care Teams Pipe Fitter Relationship Specialty Start Date End Date Rob Easley MD PCP - General Internal Medicine 07/04/17 Jcarlos Morrow MD Referring Physician Urology 11/11/18 Benjamin Garcia MD Radiation Oncologist Radiation Oncology 11/21/18 Felicia Walker NP [address] [facility] [address] [place] [address] Nurse Practitioner Nurse Practitioner 04/13/21 David Sosa MD [address] [facility] [address] [place] [address] Radiation Oncologist Radiation Oncology 10/11/22 documented as of this encounter
--- OUTSIDE RECORDS SUMMARY | 2025-03-05 08:39 | XMS_ITS | Encounter Summary ---
Author Organization [facility] Address [address] [place] [address] Care Team Providers Care Power Shovel Operator Helper Name Role Phone Unavailable Primary Care Provider Unavailabl e Encounter Details Date Type Department Care Team (Late st Contact Info) Description 05/07/2024 Lab Requisition [facility] - DermPath Lab [address] [facility] [place] [id number] nUique Oseguera PA [address] [place] [id number] Dermatitis, unspecified Social History Tobacco Use Types [...] Comments DERMATOPATHOLOGY Routine 05/07/2024 12:0 0 AM SKATE SHOP ATTENDANT Dermatitis, unspecified documented in this encounter Results * DERMATOPATHOLOGY (05/07/2024 12:00 AM SKATE SHOP ATTENDANT) Case Report Dermatopathology Report Case: [id number] Authorizing Provider: Unique Oseguera PA Collected: 05/07/2024 12:00 AM Ordering Location: [facility] Physician [facility] - Received: 2024 01:11 PM DermPath Lab Pathologist: Mahamed Maldonado MD Specimen: Skin, right mid upper back 5:32 PM SKATE SHOP ATTENDANT DERMATOPATHOLOGY LABORATORY Final Diagnosis Specimen A. 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 Hypersensitivity reaction vs. Tinea Corporis vs. Psoriasis 5:[address] [facility] DERMATOPATHOLOGY LABORATORY Gross Description Specimen A: Received is one formalin filled container labeled with the patient's name and designated right mid upper back. The specimen consists of a punch biopsy measuring 4x4x2 mm. Jar 0. 5:[address] [facility] DERMATOPATHOLOGY LABORATORY Microscopic Description Specimen A. SKIN, [...] of pityriasis rosea was considered. 5:[address] [facility] DERMATOPATHOLOGY LABORATORY Disclaimer An external and internal positive and negative controls are appropriate for the histochemical, immunohistochemical and immunofluorescence stain(s) in this case (if any), except where stated explicitly. The performance characteristics of the stain(s) cited in this report were developed and its performance characteristic determined by the Dermatopathology Laboratory at [facility], directed by Dr. Cora Maldonado. These tests need not be, and therefore are not, approved by the [place] Food and Drug Administration. The tests are used for clinical purposes. Billing Codes Specimen Charges Stain Charges 36399 1 89822 1 5 5:[address] [facility] DERMATOPATHOLOGY LABORATORY Embedded Images 5:[address] [facility] DERMATOPATHOLOGY LABORATORY Pathology/Cytolog y TISSUE SPECIMEN FROM SKIN / Unknown 05/07/2024 2024 1:[address] [facility] - PATHOLOGY/CYTOLOGY OR DERABLES Final Result DERMATOPATHOLOGY LABORATORY [facility] - Department of Dermatology [address], [address] [phone] documented in this encounter Visit Diagnoses Diagnosis Dermatitis, unspecified documented in this encounter
--- OUTSIDE RECORDS SUMMARY | 2025-03-05 08:39 | XMS_ITS | Encounter Summary ---
Author Organization [facility] Healthcare Address [address] [place] [address] Care Team Providers Care Sheet Rock Nailer Name Role Phone Rob Easley MD Primary Care Provider [phone] Jacrlos Morrow MD Unavailable Benjamin Garcia MD Unavailable [phone] Felicia Walker NP Unavailable [phone] David Sosa MD Unavailable [phone] Encounter Details Date Type Department Care Team (Late st Contact Info) Description 03/13/2020 Telephone [facility] Advanced Medicine Radiation Oncology [address] [facility] [place] [address] Mariama Mazariegos MA Social History Tobacco Use [...] Living Expenses Not hard at all 11/24/2018 [facility] - Occupational Stress [...] on file 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 Gender Identity Male 10/10/2021 11:17 AM CDT Sexual Orientation Straight 10/10/2021 11 :17 AM CDT Occupation Industry Job Start Date Job End Date Retired alta[employer] ryna Not on file Not on file Not on f ile documented as of this encounter Plan of Treatment Not on file documented as of this encounter Visit Diagnoses Not on filedocumented in this encounter Care Teams Sheet Rock Nailer Relationship Specialty Start Date End Date Rob Easley MD PCP - General Internal Medicine 07/04/17 Jcarlos Morrow MD Referring Physician Urology 11/11/18 Benjamin Garcia MD Radiation Oncologist Radiation Oncology 11/21/18 Felicia Walker NP [address] [facility] [address] [place] [address] Nurse Practitioner Nurse Practitioner 04/13/21 David Sosa MD [address] [facility] [address] [place] [address] Radiation Oncologist Radiation Oncology 10/11/22 documented as of this encounter
--- OUTSIDE RECORDS SUMMARY | 2025-03-05 08:39 | XMS_ITS ---
Author Organization [facility] [address] Address [address] [place] [address] Care Team Providers Care Archivist Economic History Name Role Phone Rob Easley MD Primary Care Provider [phone] Jcarlos Morrow MD Unavailable Felicia Walker NP Unavailable [phone] David Sosa MD Unavailable [phone] Active Problems Problem Noted Date Diagnosed Date [...]
--- OUTSIDE RECORDS SUMMARY | 2025-03-05 08:39 | XMS_ITS | Encounter Summary ---
Author Organization [facility] Healthcare Address [address] [facility] [place] [address] Care Team Providers Care Department Of Mathematics Chair Name Role Phone Rob Easley MD Primary Care Provider [phone] Jcarlos Morrow MD Unavailable Benjamin Garcia MD Unavailable [phone] Felicia Walker NP Unavailable [phone] David Sosa MD Unavailable [phone] Encounter Details Date Type Department Care Team (Late st Contact Info) Description 03/01/2019 Telephone [facility] Advanced Medicine Radiation Oncology [address] [facility] [place] [address] Steff Bosch RN Social History Tobacco Use [...] and Family Once a week 11/24/2018 Attends Church Services Never 11/24 Active Member of Clubs [...] Living Expenses Not hard at all 11/24/2018 [facility] - [...] on file 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 Gender Identity Male 10/10/2021 11:17 AM CDT Sexual Orientation Straight 10/10/2021 11 :17 AM CDT Occupation Industry Job Start Date Job End Date 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 Not on file Not on file Not on f ile documented as of this encounter Plan of Treatment Not on file documented as of this encounter Visit Diagnoses Not on filedocumented in this encounter Care Teams Department Of Mathematics Chair Relationship Specialty Start Date End Date Rob Easley MD PCP - General Internal Medicine 07/04/17 Jcarlos Morrow MD Referring Physician Urology 11/11/18 Benjamin Garcia MD Radiation Oncologist Radiation Oncology 11/21/18 Felicia Walker NP [address] [facility] [address] [place] [address] Nurse Practitioner Nurse Practitioner 04/13/21 David Sosa MD [address] [facility] [address] [place] [address] Radiation Oncologist Radiation Oncology 10/11/22 documented as of this encounter
--- OUTSIDE RECORDS SUMMARY | 2025-03-05 08:39 | XMS_ITS | Data Portability ---
Author Organization [facility] [place] Address [address] [place] [address] Care Team Providers Care Supervisor Compounding And Finishing Name Role Phone JUANCARLOS EASLEY Primary Care Provider Assessment Encounter Date Assessment Date Assessment LastModified by Organization Details LastModified Time 07/25/2023 07/25/2023 Hypertension continue with nebivolol blood pressure looks good continue telmisartan and amlodipine dyslipidemia rosuvastatin and omega-3 BPH prostate cancer follows with specialist chronic dermatitis Dupixent old records to be retrieved follow-up in 6 months [email or web address] Not available 07/26/2023 15:03:29 01/02/2024 01/02/2024 he is orthostatic. The tamsulosin check blood work EKG shows a normal sinus rhythm first-degree AV block he has had no chest pain or shortness of breath no infectious processes push the fluids little bit he will let me know in a few days how he is feeling [email or web address] Not available 01/04/2024 22:13:38 05/11/2024 05/11/2024 blood pressure controlled blood work will be ordered dermatology referral for 2nd opinion on his psoriatic looking lesions that have been very hard to control and they are progressing despite multiple therapies by the food safety field specialist. Follow up with me in 4 months [email or web address] Not available 05/15/2024 18:35:02 09/14/2024 09/14/2024 Continue current therapy blood work has been ordered CBC CMP lipid hemoglobin A1c he will follow up in 4-6 months [email or web address] Not available 09/19/2024 21:41:51 02/15/2025 02/15/2025 Blood work has been ordered continue current therapy as far as blood pressure goes take the medicine in the morning before he come see the doctor see me back in 4 months he will monitor his pressure at home and present those numbers at next visit Not available 02/26/2025 16:39:49 Plan of Treatment Reminders Order Date Submit Date Provider Last Modified By Organization Details Last Modified Time Details Appointments ANY 15 2025 09:00A M Juancarlos Easley MD Not available Not available Not available Lab CMP, serum or plasma 2024 SAMY [facility] (Centralized Electronic Ordering - All Locations), Patient Can Go To The Location Of Their Choice, [id number] 02/16/2025 08:29:15 lipid panel, serum 2024 SAMY [facility] (Centralized Electronic Ordering - All Locations), Patient Can Go To The Location Of Their Choice, [id number] 02/16/2025 08:29:15 CBC w/ auto diff 2024 SAMY [facility] (Centralized Electronic Ordering - All Locations), Patient Can Go To The Location Of Their Choice, [id number] 02/16/2025 08:29:16 HbA1c (hemoglob in A1c), blood 2024 SAMY [facility], [address] [place] [address], [facility] [address], [place], [address], 09/15/2024 06:19:42 lipid panel, serum 2024 025 SAM[facility], [address] [place] [address], [facility] [address], [place], [address], 09/15/2024 06:19:40 CMP, serum or plasma 2024 025 SAM[facility], [address] [place] [address], [facility] [address], [place], [address], 09/15/2024 06:19:41 CBC w/ auto diff 2024 025 [facility], [address] [place] [address], [facility] [address], [place], [address], 09/15/2024 06:19:42 lipid panel, serum 2024 025 [facility]Y [facility], [address], [address], [place], [address], 05/12/2024 06:19:49 CMP, serum or plasma 2024 025 [facility], [address], [address], [place], [address], 05/12/2024 06:19:50 CBC w/ auto diff 2024 025 [facility], [address], [address], [place], [address], 05/12/2024 06:19:51 CBC w/ auto diff 2023 024 [facility], [address], [address], [place], [address], 01/03/2024 06:18:49 CMP, serum or plasma 2023 024 SAMY CARPENTER, [address], [address], [place], [address], 01/03/2024 06:18:49 lipid panel, serum 2023 024 SAMY CARPENTER, [address], [address], [place], [address], 01/03/2024 06:18:48 CMP, serum or plasma 2023 024 SAMY CARPENTER, [address], [address], [place], [address], 07/26/2023 06:18:25 CBC w/ auto diff 2023 024 [facility], [address], [address], [place], [address], 07/26/2023 06:18:26 lipid panel, serum 2023 024 [facility], [address], [address], [place], [address], 07/26/2023 06:18:25 PSA, total, serum or plasma 2023 024 [facility], [address], [address], [place], [address], 07/26/2023 06:18:27 Referral dermatolo gist referral 2024 025 SAMY Jay MD, [address] [place] [address], [id number], 07/09/2024 12:43:47 Procedures None recorded. Surgeries None recorded. Imaging electroca rdiogram 2023 024 [id number] In-Office Order, Internal Use Only DO Not Attach Compendium DO Not Attach Compendium, Do Not Delete/merge, [id number] 01/02/2024 11:33:00 Medication Orders None recorded. Patient TargetsNo targets recorded. Patient Instructions Encounter Date Encounter Id Patient Instructions Last Modified By Organization Details Last Modified Time 05/11/2024 [id number] A healthy lifestyle: care instructions [email or web address] Not available 05/11/2024 11:42:18 02/15/2025 [id number] A healthy lifestyle: care instructions [email or web address] Not available 02/15/2025 13:17:04 Reason for Referral Avian Keeper Referral for S kin lesion Referring Physician: Juancarlos Easley, Internal Medicine, Encounter Date: 05/11/2024 Results Created Date Observation Date Name Description Value Unit Range Abnormal Flag Note LastModifiedBy Organization Detail LastModifiedTime 07/25/19 24 07/26/2023 LIPID PANEL cholesterol, total 147 mg/dL 100-19 9 Not Available [facility] ([facility]) [address] [place], [address], 07/26/2023 06:18:24 07/25/19 24 07/26/2023 LIPID PANEL triglyceride s 150 mg/dL 0-149 above high normal Not Available [facility] ([facility]) [address] [place], [address], 07/26/2023 06:18:24 07/25/19 24 07/26/2023 LIPID PANEL HDL cholesterol 61 mg/dL >39 Not Available [facility] ([facility]) [address] [place], [address], 07/26/2023 06:18:24 07/25/19 24 07/26/2023 LIPID PANEL VLDL cholesterol cassie 25 mg/dL 5-40 Not Available [facility] ([facility]) [address] [place], [address], 07/26/2023 06:18:24 07/25/19 24 07/26/2023 LIPID PANEL LDL chol calc ([facility]) 61 mg/dL 0-99 Not Available [facility] ([facility]) [address] [place], [address], 07/26/2023 06:18:24 07/25/19 24 07/26/2023 COMP. METAB OLIC PANEL (14) glucose 128 mg/dL 70-99 above high normal Not Available [facility] ([facility]) [address] [place], [address], 07/26/2023 06:18:25 07/25/19 24 07/26/2023 COMP. METAB OLIC PANEL (14) BUN 12 mg/dL 8-27 Not Available [facility] ([facility]) [address] [place], [address], 07/26/2023 06:18:25 07/25/19 24 07/26/2023 COMP. METAB OLIC PANEL (14) creatinine 1.01 mg/dL 0.76-1 .27 Not Available [facility] ([facility]) [address] [facility] [place], [address], 07/26/2023 06:18:25 07/25/19 24 07/26/2023 COMP. METAB OLIC PANEL (14) eGFR 78 mL/mi n/1.7 3 >59 Not Available [facility] ([facility]) [address] [place], [address], 07/26/2023 06:18:25 07/25/19 24 07/26/2023 COMP. METAB OLIC PANEL (14) BUN/creatini ne ratio 12 10-24 Not Available [facility] ([facility]) [address] [facility] [place], [address], 07/26/2023 06:18:25 07/25/19 24 07/26/2023 COMP. METAB OLIC PANEL (14) sodium 141 mmol/ L 134-14 4 Not Available [facility] ([facility]) [address] [facility] [place], [address], 07/26/2023 06:18:25 07/25/19 24 07/26/2023 COMP. METAB OLIC PANEL (14) potassium 4.3 mmol/ L 3.5-5. 2 Not Available [facility] ([facility]) [address] [facility] [place], [address], 07/26/2023 06:18:25 07/25/19 24 07/26/2023 COMP. METAB OLIC PANEL (14) chloride 103 mmol/ L 96-106 Not Available [facility] ([facility]) [address] [facility] [place], [address], 07/26/2023 06:18:25 07/25/19 24 07/26/2023 COMP. METAB OLIC PANEL (14) carbon dioxide, total 25 mmol/ L 20-29 Not Available [facility] ([facility]) [address] [facility], [place], [address], 07/26/2023 06:18:25 07/25/19 24 07/26/2023 COMP. METAB OLIC PANEL (14) calcium 9.5 mg/dL 8.6-10 .2 Not Available [facility] ([facility]) [address] [place], [address], 07/26/2023 06:18:25 07/25/19 24 07/26/2023 COMP. METAB OLIC PANEL (14) protein, total 6.6 g/dL 6.0-8. 5 Not Available [facility] ([facility]) [address] [place], [address], 07/26/2023 06:18:25 07/25/19 24 07/26/2023 COMP. METAB OLIC PANEL (14) albumin 4.3 g/dL 3.8-4. 8 Not Available [facility] ([facility]) [address] [place], [address], 07/26/2023 06:18:25 07/25/19 24 07/26/2023 COMP. METAB OLIC PANEL (14) globulin, total 2.3 g/dL 1.5-4. 5 Not Available [facility] ([facility]) [address] [place], [address], 07/26/2023 06:18:25 07/25/19 24 07/26/2023 COMP. METAB OLIC PANEL (14) A/G ratio 1.9 1.2-2. 2 Not Available [facility] ([facility]) [address] [place], [address], 07/26/2023 06:18:25 07/25/19 24 07/26/2023 COMP. METAB OLIC PANEL (14) bilirubin, total 0.2 mg/dL 0.0-1. 2 Not Available [facility] ([facility]) [address] [place], [address], 07/26/2023 06:18:25 07/25/19 24 07/26/2023 COMP. METAB OLIC PANEL (14) alkaline phosphatase 63 IU/L 44-121 Not Available [facility] ([facility]) [address] [facility], [place], [address], 07/26/2023 06:18:25 07/25/19 24 07/26/2023 COMP. METAB OLIC PANEL (14) AST (SGOT) 40 IU/L 0-40 Not Available [facility] ([facility]) [address] [facility], [place], [address], 07/26/2023 06:18:25 07/25/19 24 07/26/2023 COMP. METAB OLIC PANEL (14) ALT (SGPT) 38 IU/L 0-44 Not Available [facility] ([facility]) [address] [facility], [place], [address], 07/26/2023 06:18:25 07/25/19 24 07/26/2023 CBC WITH DIFFE RENTI AL/PL ATELE T WBC 9.5 x10e3 /uL 3.4-10 .8 Not Available [facility] ([facility]) [address] [facility], [place], [address], 07/26/2023 06:18:26 07/25/19 24 07/26/2023 CBC WITH DIFFE RENTI AL/PL ATELE T RBC 4.72 x10e6 /uL 4.14-5 .80 Not Available [facility] ([facility]) [address] [facility], [place], [address], 07/26/2023 06:18:26 07/25/19 24 07/26/2023 CBC WITH DIFFE RENTI AL/PL ATELE T hemoglobin 15.4 g/dL 13.0-1 7.7 Not Available [facility] ([facility]) [address] [place], [address], 07/26/2023 06:18:26 07/25/19 24 07/26/2023 CBC WITH DIFFE RENTI AL/PL ATELE T hematocrit 45.3 % 37.5-5 1.0 Not Available [facility] ([facility]) [address] [facility], [place], [address], 07/26/2023 06:18:26 07/25/19 24 07/26/2023 CBC WITH DIFFE RENTI AL/PL ATELE T MCV 96 fL 79-97 Not Available [facility] ([facility]) [address] [facility], [place], [address], 07/26/2023 06:18:26 07/25/19 24 07/26/2023 CBC WITH DIFFE RENTI AL/PL ATELE T MCH 32.6 pg 26.6-3 3.0 Not Available [facility] ([facility]) [address] [facility], [place], [address], 07/26/2023 06:18:26 07/25/19 24 07/26/2023 CBC WITH DIFFE RENTI AL/PL ATELE T MCHC 34.0 g/dL 31.5-3 5.7 Not Available [facility] ([facility]) [address] [facility], [place], [address], 07/26/2023 06:18:26 07/25/19 24 07/26/2023 CBC WITH DIFFE RENTI AL/PL ATELE T RDW 11.8 % 11.6-1 5.4 Not Available [facility] ([facility]) [address] [place], [address], 07/26/2023 06:18:26 07/25/19 24 07/26/2023 CBC WITH DIFFE RENTI AL/PL ATELE T platelets 305 x10e3 /uL 150-45 0 Not Available [facility] ([facility]) [address] [place], [address], 07/26/2023 06:18:26 07/25/19 24 07/26/2023 CBC WITH DIFFE RENTI AL/PL ATELE T neutrophils 60 % notest ab. Not Available [facility] ([facility]) [address] [facility], [place], [address], 07/26/2023 06:18:26 07/25/19 24 07/26/2023 CBC WITH DIFFE RENTI AL/PL ATELE T lymphs 24 % notest ab. Not Available [facility] ([facility]) [address] [facility], [place], [address], 07/26/2023 06:18:26 07/25/19 24 07/26/2023 CBC WITH DIFFE RENTI AL/PL ATELE T monocytes 8 % notest ab. Not Available [facility] ([facility]) [address] [facility], [place], [address], 07/26/2023 06:18:26 07/25/19 24 07/26/2023 CBC WITH DIFFE RENTI AL/PL ATELE T eos 5 % notest ab. Not Available [facility] ([facility]) [address] [facility], [place], [address], 07/26/2023 06:18:26 07/25/19 24 07/26/2023 CBC WITH DIFFE RENTI AL/PL ATELE T basos 2 % notest ab. Not Available [facility] ([facility]) [address] [facility], [place], [address], 07/26/2023 06:18:26 07/25/19 24 07/26/2023 CBC WITH DIFFE RENTI AL/PL ATELE T neutrophils (absolute) 5.7 x10e3 /uL 1.4-7. 0 Not Available [facility] ([facility]) [address] [facility], [place], [address], 07/26/2023 06:18:26 07/25/19 24 07/26/2023 CBC WITH DIFFE RENTI AL/PL ATELE T lymphs (absolute) 2.3 x10e3 /uL 0.7-3. 1 Not Available [facility] ([facility]) [address] [facility], [place], [address], 07/26/2023 06:18:26 07/25/19 24 07/26/2023 CBC WITH DIFFE RENTI AL/PL ATELE T monocytes(ab solute) 0.8 x10e3 /uL 0.1-0. 9 Not Available [facility] ([facility]) [address] [facility], [place], [address], 07/26/2023 06:18:26 07/25/19 24 07/26/2023 CBC WITH DIFFE RENTI AL/PL ATELE T eos (absolute) 0.5 x10e3 /uL 0.0-0. 4 above high normal Not Available [facility] ([facility]) [address] [facility], [place], [address], 07/26/2023 06:18:26 07/25/19 24 07/26/2023 CBC WITH DIFFE RENTI AL/PL ATELE T baso (absolute) 0.2 x10e3 /uL 0.0-0. 2 Not Available [facility] ([facility]) [address] [facility], [place], [address], 07/26/2023 06:18:26 07/25/19 24 07/26/2023 CBC WITH DIFFE RENTI AL/PL ATELE T immature granulocytes 1 % notest ab. Not Available [facility] ([facility]) [address] [place], [address], 07/26/2023 06:18:26 07/25/19 24 07/26/2023 CBC WITH DIFFE RENTI AL/PL ATELE T immature grans (abs) 0.1 x10e3 /uL 0.0-0. 1 Not Available [facility] ([facility]) [address] [place], [address], 07/26/2023 06:18:26 07/25/19 24 07/26/2023 PROST ATE-S PECIF IC AG prostate specific Ag 0.2 NG/mL 0.0-4. 0 Mario ECLIA metho dolog y. Accor ding to the Ameri can [employer] g[employer] iatio n, Serum PSA shoul d decre ase and remai n at undet ectab le level s after radic al prost atect jessica. The AUA defin es bioch emica l recur rence as an initi al PSA value 0.2 ng/mL or great er follo wed by a subse quent confi rmato ry PSA value 0.2 ng/mL or great er. Value s obtai lima with diffe rent assay metho ds or kits canno t be used inter ortiz eably . Resul ts canno t be inter prete d as absol tete evide nce of the prese nce or absen ce of joaquim arellano se. Not Available [facility] ([facility]) [address] [facility], [place], [address], 07/26/2023 06:18:27 01/02/20 24 01/03/2024 LIPID PANEL cholesterol, total 145 mg/dL 100-19 9 Not Available [facility] ([facility]) [address] [place], [address], 01/03/2024 06:18:48 01/02/20 24 01/03/2024 LIPID PANEL triglyceride s 123 mg/dL 0-149 Not Available [facility] ([facility]) [address] [place], [address], 01/03/2024 06:18:48 01/02/20 24 01/03/2024 LIPID PANEL HDL cholesterol 58 mg/dL >39 Not Available [facility] ([facility]) [address] [facility], [place], [address], 01/03/2024 06:18:48 01/02/20 24 01/03/2024 LIPID PANEL VLDL cholesterol cassie 22 mg/dL 5-40 Not Available [facility] ([facility]) [address] [facility], [place], [address], 01/03/2024 06:18:48 01/02/20 24 01/03/2024 LIPID PANEL LDL chol calc ([facility]) 65 mg/dL 0-99 Not Available [facility] ([facility]) [address] [facility] [place], [address], 01/03/2024 06:18:48 01/02/20 24 01/03/2024 COMP. METAB OLIC PANEL (14) glucose 114 mg/dL 70-99 above high normal Not Available [facility] ([facility]) [address] [facility] [place], [address], 01/03/2024 06:18:48 01/02/20 24 01/03/2024 COMP. METAB OLIC PANEL (14) BUN 12 mg/dL 8-27 Not Available [facility] ([facility]) [address] [facility], [place], [address], 01/03/2024 06:18:48 01/02/20 24 01/03/2024 COMP. METAB OLIC PANEL (14) creatinine 1.19 mg/dL 0.76-1 .27 Not Available [facility] ([facility]) [address] [place], [address], 01/03/2024 06:18:48 01/02/20 24 01/03/2024 COMP. METAB OLIC PANEL (14) eGFR 64 mL/mi n/1.7 3 >59 Not Available [facility] ([facility]) [address] [place], [address], 01/03/2024 06:18:48 01/02/20 24 01/03/2024 COMP. METAB OLIC PANEL (14) BUN/creatini ne ratio 10 10-24 Not Available [facility] ([facility]) [address] [place], [address], 01/03/2024 06:18:48 01/02/20 24 01/03/2024 COMP. METAB OLIC PANEL (14) sodium 140 mmol/ L 134-14 4 Not Available [facility] ([facility]) [address] [facility] [place], [address], 01/03/2024 06:18:48 01/02/20 24 01/03/2024 COMP. METAB OLIC PANEL (14) potassium 4.7 mmol/ L 3.5-5. 2 Not Available [facility] ([facility]) [address] [facility] [place], [address], 01/03/2024 06:18:48 01/02/20 24 01/03/2024 COMP. METAB OLIC PANEL (14) chloride 102 mmol/ L 96-106 Not Available [facility] ([facility]) [address] [facility] [place], [address], 01/03/2024 06:18:48 01/02/20 24 01/03/2024 COMP. METAB OLIC PANEL (14) carbon dioxide, total 24 mmol/ L 20-29 Not Available [facility] ([facility]) [address] [facility] [place], [address], 01/03/2024 06:18:48 01/02/20 24 01/03/2024 COMP. METAB OLIC PANEL (14) calcium 9.7 mg/dL 8.6-10 .2 Not Available [facility] ([facility]) [address] [facility] [place], [address], 01/03/2024 06:18:48 01/02/20 24 01/03/2024 COMP. METAB OLIC PANEL (14) protein, total 6.7 g/dL 6.0-8. 5 Not Available [facility] ([facility]) [address] [facility] [place], [address], 01/03/2024 06:18:48 01/02/20 24 01/03/2024 COMP. METAB OLIC PANEL (14) albumin 4.3 g/dL 3.8-4. 8 Not Available [facility] ([facility]) [address] [place], [address], 01/03/2024 06:18:48 01/02/20 24 01/03/2024 COMP. METAB OLIC PANEL (14) globulin, total 2.4 g/dL 1.5-4. 5 Not Available [facility] ([facility]) [address] [place], [address], 01/03/2024 06:18:48 01/02/20 24 01/03/2024 COMP. METAB OLIC PANEL (14) bilirubin, total 0.3 mg/dL 0.0-1. 2 Not Available [facility] ([facility]) [address] [place], [address], 01/03/2024 06:18:48 01/02/20 24 01/03/2024 COMP. METAB OLIC PANEL (14) alkaline phosphatase 77 IU/L 44-121 Not Available [facility] ([facility]) [address] [place], [address], 01/03/2024 06:18:48 01/02/20 24 01/03/2024 COMP. METAB OLIC PANEL (14) AST (SGOT) 43 IU/L 0-40 above high normal Not Available [facility] ([facility]) [address] [place], [address], 01/03/2024 06:18:48 01/02/20 24 01/03/2024 COMP. METAB OLIC PANEL (14) ALT (SGPT) 40 IU/L 0-44 Not Available [facility] ([facility]) [address] [place], [address], 01/03/2024 06:18:48 01/02/20 24 01/02/2024 CBC WITH DIFFE RENTI AL/PL ATELE T WBC 10.7 x10e3 /uL 3.4-10 .8 Not Available [facility] ([facility]) [address] [place], [address], 01/03/2024 06:18:49 01/02/20 24 01/02/2024 CBC WITH DIFFE RENTI AL/PL ATELE T RBC 4.58 x10e6 /uL 4.14-5 .80 Not Available [facility] ([facility]) [address] [facility], [place], [address], 01/03/2024 06:18:49 01/02/20 24 01/02/2024 CBC WITH DIFFE RENTI AL/PL ATELE T hemoglobin 14.8 g/dL 13.0-1 7.7 Not Available [facility] ([facility]) [address] [place], [address], 01/03/2024 06:18:49 01/02/20 24 01/02/2024 CBC WITH DIFFE RENTI AL/PL ATELE T hematocrit 45.5 % 37.5-5 1.0 Not Available [facility] ([facility]) [address] [place], [address], 01/03/2024 06:18:49 01/02/2001/02/2024 CBC WITH DIFFE RENTI AL/PL ATELE T MCV 99 fL 79-97 above high normal Not Available [facility] ([facility]) [address] [place], [address], 01/03/2024 06:18:49 01/02/2001/02/2024 CBC WITH DIFFE RENTI AL/PL ATELE T MCH 32.3 pg 26.6-3 3.0 Not Available [facility] ([facility]) [address] [place], [address], 01/03/2024 06:18:49 01/02/2001/02/2024 CBC WITH DIFFE RENTI AL/PL ATELE T MCHC 32.5 g/dL 31.5-3 5.7 Not Available [facility] ([facility]) [address] [facility], [place], [address], 01/03/2024 06:18:49 01/02/20 24 01/02/2024 CBC WITH DIFFE RENTI AL/PL ATELE T RDW 11.9 % 11.6-1 5.4 Not Available [facility] ([facility]) [address] [facility], [place], [address], 01/03/2024 06:18:49 01/02/20 24 01/02/2024 CBC WITH DIFFE RENTI AL/PL ATELE T platelets 339 x10e3 /uL 150-45 0 Not Available [facility] ([facility]) [address] [facility], [place], [address], 01/03/2024 06:18:49 01/02/20 24 01/02/2024 CBC WITH DIFFE RENTI AL/PL ATELE T neutrophils 64 % notest ab. Not Available [facility] ([facility]) [address] [facility], [place], [address], 01/03/2024 06:18:49 01/02/20 24 01/02/2024 CBC WITH DIFFE RENTI AL/PL ATELE T lymphs 21 % notest ab. Not Available [facility] ([facility]) [address] [facility], [place], [address], 01/03/2024 06:18:49 01/02/20 24 01/02/2024 CBC WITH DIFFE RENTI AL/PL ATELE T monocytes 7 % notest ab. Not Available [facility] ([facility]) [address] [facility], [place], [address], 01/03/2024 06:18:49 01/02/20 24 01/02/2024 CBC WITH DIFFE RENTI AL/PL ATELE T eos 5 % notest ab. Not Available [facility] ([facility]) [address] [facility], [place], [address], 01/03/2024 06:18:49 01/02/20 24 01/02/2024 CBC WITH DIFFE RENTI AL/PL ATELE T basos 2 % notest ab. Not Available [facility] ([facility]) [address] [facility], [place], [address], 01/03/2024 06:18:49 01/02/20 24 01/02/2024 CBC WITH DIFFE RENTI AL/PL ATELE T neutrophils (absolute) 6.8 x10e3 /uL 1.4-7. 0 Not Available [facility] ([facility]) [address] [facility], [place], [address], 01/03/2024 06:18:49 01/02/20 24 01/02/2024 CBC WITH DIFFE RENTI AL/PL ATELE T lymphs (absolute) 2.3 x10e3 /uL 0.7-3. 1 Not Available [facility] ([facility]) [address] [facility] [address], [place], [address], 01/03/2024 06:18:49 01/02/20 24 01/02/2024 CBC WITH DIFFE RENTI AL/PL ATELE T monocytes(ab solute) 0.8 x10e3 /uL 0.1-0. 9 Not Available [facility] ([facility]) [address] [facility] [address], [place], [address], 01/03/2024 06:18:49 01/02/20 24 01/02/2024 CBC WITH DIFFE RENTI AL/PL ATELE T eos (absolute) 0.5 x10e3 /uL 0.0-0. 4 above high normal Not Available [facility] ([facility]) [address] [facility] [address], [place], [address], 01/03/2024 06:18:49 01/02/20 24 01/02/2024 CBC WITH DIFFE RENTI AL/PL ATELE T baso (absolute) 0.2 x10e3 /uL 0.0-0. 2 Not Available [facility] ([facility]) [address] [facility] [address], [place], [address], 01/03/2024 06:18:49 01/02/20 24 01/02/2024 CBC WITH DIFFE RENTI AL/PL ATELE T immature granulocytes 1 % notest ab. Not Available [facility] ([facility]) [address] [facility] [address], [place], [address], 01/03/2024 06:18:49 01/02/20 24 01/02/2024 CBC WITH DIFFE RENTI AL/PL ATELE T immature grans (abs) 0.1 x10e3 /uL 0.0-0. 1 Not Available [facility] ([facility]) [address] [facility] [address], [place], [address], 01/03/2024 06:18:49 05/07/19 25 05/14/2024 Skin Patho logy biops y repor t pathology report.secti on heading Dermat opatho logy Report Case: [id number] Author izing Provid er: Delroy Oseguera PA Collec bon: 2024 12:00 AM Orderi ng Locati on: [facility] - Receiv ed: 2024 01:11 PM DermPa th Lab Pathol ogist: Mahamed Maldonado MD Specim en: Skin, right mid upper back Case Repor t Puryear topat holog y Repor t Case: [id number] Autho skye g Provi ayala: Manju Oseguera PA Colle cted: 05/07 12:00 AM Order ing Locat ion: [facility] - Recei george: 05/10 01:11 PM DermP ath Lab Patho logis t: Mahamed Tate MD Speci men: Skin, right mid upper back 05/14 5:32 PM [employer] TECHNICIAN DERMA TOPAT HOLOG Y LABOR ATORY Not Available Not Available 06/14/2024 10:53:09 05/07/19 25 05/14/2024 Skin Patho logy biops y repor t pathology report final diagnosis narrative Specim en A. 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 SKIN, right mid upper back: SPONG IOTIC DERMA TITIS WITH RARE EOSIN OPHIL S (L30. 8) (see micro scopi c descr iptio n and comme nt) 05/14 5:32 PM [employer] TECHNICIAN [facility] TOPAT [facility]OLOG [facility]OR ATORY Elect laci raman by Mahamed Tate MD on 2024 at 5:32 PM Not Available Not Available 06/14/2024 10:53:09 05/07/19 25 05/14/2024 Skin Patho logy biops y repor t pathology report relevant history narrative Dermat itis unspec ified vs. Hypers ensiti vity reacti on vs. Tinea Corpor is vs. Psoria sis Clini cassie Histo ry Puryear titis unspe cifie d vs. Hyper sensi tivit y react ion vs. Tinea Corpo ris vs. Psori asis 05/14 5:32 PM [employer] TECHNICIAN DERMA TOPAT [facility]OLOG Y LAB[facility] AT[facility] Not Available Not Available 06/14/2024 10:53:09 05/07/19 25 05/14/2024 Skin Patho logy biops y repor t pathology report gross observation narrative Specim en A: Receiv ed is one formal in filled contai ner labele d with the patien t's name and design ated right mid upper back. The specim en consis ts of a punch biopsy measur ing 4x4x2 mm. Jar 0. Gross Descr iptio n Speci men A: Recei george is one forma barbara fille d conta iner label ed with the patie nt's name and desig nated right mid upper back. The speci men consi sts of a punch biops y measu ring 4x4x2 mm. Jar 0. 05/14 5:32 PM [employer] TECHNICIAN [facility]MA TOPAT [facility]OLOG Y [facility] Not Available Not Available 06/14/2024 10:53:09 05/07/1905/14/2024 Skin Patho logy biops y repor t pathology report microscopic observation narrative other stain Specim en A. SKIN, right mid upper back: There is focal parake ratosi s and spongi osis. In the dermis there is a mainly superf icial periva scular lympho histio cytic inflam matory infilt rate with rare eosino phils. Grocot t's methen amine silver (GMS) stain is negati ve for fungal elemen ts in the sectio ns examin ed. There is erythr ocyte extrav asatio n in the papill nereida dermis . COMMEN T: The histol ogical differ ential diagno sis includ es a contac t dermat itis and an eczema tous drug erupti on. A diagno sis of pityri asis eddiea was consid ered. Micro scopi c Descr iptio n Speci men A. SKIN, right mid upper back: There is focal parak erato sis and spong iosis . In the dermi s there is a mainl y super ficia l periv ascul ar lymph ohist iocyt ic infla mmato ry infil trate with rare eosin ophil s. Groco tt's methe namin e silve r (GMS) stain is negat tiffanie for funga l eleme nts in the secti ons exami lima. There is eryth rocyt e extra vasat ion in the papil griselda dermi s. COMME NT: The histo logic al diffe renti al diagn osis inclu norman a conta ct derma titis and an eczem atous drug erupt ion. A diagn osis of pityr iasis rosea was consi dered . 05/14 5:32 PM [employer] TECHNICIAN [facility]MA TOPAT [facility]OLOG Y [facility] AT[facility] Not Available Not Available 06/14/2024 10:53:09 05/07/1905/14/2024 Skin Patho logy biops y repor t service comment An pet crematory worker al and internet researcher al positi ve and negati ve contro ls are approp riate for the histoc hemica l, immuno histoc hemica l and immuno fluore scence stain( s) in this case (if any), except where stated explic itly. The perfor raul charac terist ics of the stain( s) cited in this report were develo ped and its perfor raul charac terist ic determ ined by the Dermat opatho elenita ashby at [facility], direct ed by Dr. Cora Maldonado . These tests need not be, and theref ore are not, approv ed by the [place] Food and Drug Admini strati on. The tests are used for clinic al purpos es. Billin g Codes Specim en Charge s Stain Charge s [id number] 1 Discl aimer An exter nal and inter nal posit tiffanie and negat tiffanie contr ols are appro priat e for the histo chemi cassie, immun ohist ochem ical and immun ofluo resce nce stain (s) in this case (if any), excep t where state d expli citly . The perfo rmanc e pepe cteri stics of the stain (s) cited in this repor t were devel oped and its perfo rmanc e pepe cteri stic deter mined by the [facility] topat holog y Labor atory at [facility] , direc bon by Dr. Cora Tate. These tests need not be, and there fore are not, appro george by the [facility] Food and Drug Admin istra tion. The tests are used for clini cassie purpo ses. Amos ng Codes Speci men Charg [place] [id number] [phone] [id number] 1 05/14 5:32 PM [employer] TECHNICIAN DERMA TOPAT HOLOG Y LABOR ATORY Not Available Not Available 06/14/2024 10:53:09 05/07/19 25 05/14/2024 Skin Patho logy biops y repor t embedded images Embed ded Image s 05/14 5:32 PM [employer] TECHNICIAN DERMA TOPAT [facility]OLOG Y LABOR AT[facility] Not Available Not Available 06/14/2024 10:53:09 05/11/19 25 05/12/2024 LIPID PANEL cholesterol, total 144 mg/dL 100-19 9 Not Available [facility] ([facility]) [address] [facility] [address], [place], [address], 05/12/2024 06:19:49 05/11/19 25 05/12/2024 LIPID PANEL triglyceride s 124 mg/dL 0-149 Not Available [facility] ([facility]) [address] [facility] [place], [address], 05/12/2024 06:19:49 05/11/19 25 05/12/2024 LIPID PANEL HDL cholesterol 61 mg/dL >39 Not Available [facility] ([facility]) [address] [facility] [place], [address], 05/12/2024 06:19:49 05/11/19 25 05/12/2024 LIPID PANEL VLDL cholesterol cassie 22 mg/dL 5-40 Not Available [facility] ([facility]) [address] [place], [address], 05/12/2024 06:19:49 05/11/19 25 05/12/2024 LIPID PANEL LDL chol calc ([facility]) 61 mg/dL 0-99 Not Available [facility] ([facility]) [address] [place], [address], 05/12/2024 06:19:49 05/11/19 25 05/12/2024 COMP. METAB OLIC PANEL (14) glucose 154 mg/dL 70-99 above high normal Not Available [facility] ([facility]) [address] [place], [address], 05/12/2024 06:19:50 05/11/19 25 05/12/2024 COMP. METAB OLIC PANEL (14) BUN 11 mg/dL 8-27 Not Available [facility] ([facility]) [address] [place], [address], 05/12/2024 06:19:50 05/11/19 25 05/12/2024 COMP. METAB OLIC PANEL (14) creatinine 1.07 mg/dL 0.76-1 .27 Not Available [facility] ([facility]) [address], [place], [address], 05/12/2024 06:19:50 05/11/19 25 05/12/2024 COMP. METAB OLIC PANEL (14) eGFR 72 mL/mi n/1.7 3 >59 Not Available [facility] ([facility]) [address], [place], [address], 05/12/2024 06:19:50 05/11/19 25 05/12/2024 COMP. METAB OLIC PANEL (14) BUN/creatini ne ratio 10 10-24 Not Available [facility] ([facility]) [address] [facility] [address], [place], [address], 05/12/2024 06:19:50 05/11/19 25 05/12/2024 COMP. METAB OLIC PANEL (14) sodium 139 mmol/ L 134-14 4 Not Available [facility] ([facility]) [address] [facility] [address], [place], [address], 05/12/2024 06:19:50 05/11/19 25 05/12/2024 COMP. METAB OLIC PANEL (14) potassium 4.3 mmol/ L 3.5-5. 2 Not Available [facility] ([facility]) [address] [facility] [address], [place], [address], 05/12/2024 06:19:50 05/11/19 25 05/12/2024 COMP. METAB OLIC PANEL (14) chloride 100 mmol/ L 96-106 Not Available [facility] ([facility]) [address] [facility], [place], [address], 05/12/2024 06:19:50 05/11/19 25 05/12/2024 COMP. METAB OLIC PANEL (14) carbon dioxide, total 26 mmol/ L 20-29 Not Available [facility] ([facility] [facility]) [address] [facility] [address], [place], [address], 05/12/2024 06:19:50 05/11/19 25 05/12/2024 COMP. METAB OLIC PANEL (14) calcium 9.7 mg/dL 8.6-10 .2 Not Available [facility] ([facility]) [address] [facility], [place], [address], 05/12/2024 06:19:50 05/11/19 25 05/12/2024 COMP. METAB OLIC PANEL (14) protein, total 6.6 g/dL 6.0-8. 5 Not Available [facility] ([facility]) [address] [facility], [place], [address], 05/12/2024 06:19:50 05/11/19 25 05/12/2024 COMP. METAB OLIC PANEL (14) albumin 4.3 g/dL 3.8-4. 8 Not Available [facility] ([facility]) [address] [facility], [place], [address], 05/12/2024 06:19:50 05/11/19 25 05/12/2024 COMP. METAB OLIC PANEL (14) globulin, total 2.3 g/dL 1.5-4. 5 Not Available [facility] ([facility]) [address] [facility], [place], [address], 05/12/2024 06:19:50 05/11/19 25 05/12/2024 COMP. METAB OLIC PANEL (14) bilirubin, total 0.4 mg/dL 0.0-1. 2 Not Available [facility] ([facility]) [address] [facility], [place], [address], 05/12/2024 06:19:50 05/11/19 25 05/12/2024 COMP. METAB OLIC PANEL (14) alkaline phosphatase 78 IU/L 44-121 Not Available [facility] ([facility]) [address] [facility], [place], [address], 05/12/2024 06:19:50 05/11/19 25 05/12/2024 COMP. METAB OLIC PANEL (14) AST (SGOT) 38 IU/L 0-40 Not Available [facility] ([facility]) [address] [facility] [address], [place], [address], 05/12/2024 06:19:50 05/11/19 25 05/12/2024 COMP. METAB OLIC PANEL (14) ALT (SGPT) 35 IU/L 0-44 Not Available [facility] ([facility]) [address] [facility], [place], [address], 05/12/2024 06:19:50 05/11/1905/11/2024 CBC WITH DIFFE RENTI AL/PL ATELE T WBC 9.7 x10e3 /uL 3.4-10 .8 Not Available [facility] ([facility]) [address] [facility] [address], [place], [address], 05/12/2024 06:19:51 05/11/1905/11/2024 CBC WITH DIFFE RENTI AL/PL ATELE T RBC 4.53 x10e6 /uL 4.14-5 .80 Not Available [facility] ([facility]) [address] [facility], [place], [address], 05/12/2024 06:19:51 05/11/1905/11/2024 CBC WITH DIFFE RENTI AL/PL ATELE T hemoglobin 14.6 g/dL 13.0-1 7.7 Not Available [facility] ([facility]) [address] [facility], [place], [address], 05/12/2024 06:19:51 05/11/1905/11/2024 CBC WITH DIFFE RENTI AL/PL ATELE T hematocrit 44.3 % 37.5-5 1.0 Not Available [facility] ([facility]) [address] [facility], [place], [address], 05/12/2024 06:19:51 05/11/1905/11/2024 CBC WITH DIFFE RENTI AL/PL ATELE T MCV 98 fL 79-97 above high normal Not Available [facility] ([facility]) [address] [facility], [place], [address], 05/12/2024 06:19:51 05/11/19 25 05/11/2024 CBC WITH DIFFE RENTI AL/PL ATELE T MCH 32.2 pg 26.6-3 3.0 Not Available [facility] ([facility]) [address] [facility], [place], [address], 05/12/2024 06:19:51 05/11/1905/11/2024 CBC WITH DIFFE RENTI AL/PL ATELE T MCHC 33.0 g/dL 31.5-3 5.7 Not Available [facility] ([facility]) [address] [facility], [place], [address], 05/12/2024 06:19:51 05/11/1905/11/2024 CBC WITH DIFFE RENTI AL/PL ATELE T RDW 12.2 % 11.6-1 5.4 Not Available [facility] ([facility]) [address] [facility], [place], [address], 05/12/2024 06:19:51 05/11/1905/11/2024 CBC WITH DIFFE RENTI AL/PL ATELE T platelets 356 x10e3 /uL 150-45 0 Not Available [facility] ([facility]) [address] [facility], [place], [address], 05/12/2024 06:19:51 05/11/1905/11/2024 CBC WITH DIFFE RENTI AL/PL ATELE T neutrophils 57 % notest ab. Not Available [facility] ([facility]) [address] [facility], [place], [address], 05/12/2024 06:19:51 05/11/1905/11/2024 CBC WITH DIFFE RENTI AL/PL ATELE T lymphs 24 % notest ab. Not Available [facility] ([facility]) [address] [facility], [place], [address], 05/12/2024 06:19:51 05/11/19 25 05/11/2024 CBC WITH DIFFE RENTI AL/PL ATELE T monocytes 8 % notest ab. Not Available [facility] ([facility]) [address] [facility], [place], [address], 05/12/2024 06:19:51 05/11/1905/11/2024 CBC WITH DIFFE RENTI AL/PL ATELE T eos 7 % notest ab. Not Available [facility] ([facility]) [address] [facility], [place], [address], 05/12/2024 06:19:51 05/11/1905/11/2024 CBC WITH DIFFE RENTI AL/PL ATELE T basos 3 % notest ab. Not Available [facility] ([facility]) [address] [facility], [place], [address], 05/12/2024 06:19:51 05/11/1905/11/2024 CBC WITH DIFFE RENTI AL/PL ATELE T neutrophils (absolute) 5.6 x10e3 /uL 1.4-7. 0 Not Available [facility] ([facility]) [address] [place], [address], 05/12/2024 06:19:51 05/11/1905/11/2024 CBC WITH DIFFE RENTI AL/PL ATELE T lymphs (absolute) 2.3 x10e3 /uL 0.7-3. 1 Not Available [facility] ([facility]) [address] [facility], [place], [address], 05/12/2024 06:19:51 05/11/19 25 05/11/2024 CBC WITH DIFFE RENTI AL/PL ATELE T monocytes(ab solute) 0.8 x10e3 /uL 0.1-0. 9 Not Available [facility] ([facility]) [address] [place], [address], 05/12/2024 06:19:51 05/11/19 25 05/11/2024 CBC WITH DIFFE RENTI AL/PL ATELE T eos (absolute) 0.7 x10e3 /uL 0.0-0. 4 above high normal Not Available [facility] ([facility]) [address] [place], [address], 05/12/2024 06:19:51 05/11/1905/11/2024 CBC WITH DIFFE RENTI AL/PL ATELE T baso (absolute) 0.3 x10e3 /uL 0.0-0. 2 above high normal Not Available [facility] ([facility]) [address] [place], [address], 05/12/2024 06:19:51 05/11/1905/11/2024 CBC WITH DIFFE RENTI AL/PL ATELE T immature granulocytes 1 % notest ab. Not Available [facility] ([facility]) [address] [place], [address], 05/12/2024 06:19:51 05/11/1905/11/2024 CBC WITH DIFFE RENTI AL/PL ATELE T immature grans (abs) 0.1 x10e3 /uL 0.0-0. 1 Not Available [facility] ([facility]) [address] [place], [address], 05/12/2024 06:19:51 05/20/1905/20/2024 HEMOG LOBIN A1C hemoglobin A1C 6.2 % 4.8-5. 6 above high normal Predi abete s: 5.7 - 6.4 Diabe harrison: >6.4 Glyce roscoe contr ol for adult s with diabe harrison: <7.0 Not Available [facility] ([facility]) [address], [place], [address], 05/21/2024 06:17:35 06/11/1906/18/2024 Skin Patho logy biops y repor t pathology report.secti on heading Dermat opatho logy Report Case: [id number] Author izing Provid er: Evy Guan MD Collec bon: 2024 12:00 AM Orderi ng Locati on: [facility] - Receiv ed: 2024 01:11 PM DermPa th Lab Pathol ogist: Mahamed Maldonado MD Specim en: Skin, left mid back Case Repor t Puryear topat holog y Repor t Case: [id number] Autho chinmayruth g Provi ayala: Evy Guan MD Colle cted: 06/11 12:00 AM Order ing Locat ion: [facility] - Recei george: 06/14 01:11 PM DermP ath Lab Patho logis t: Mahamed Tate MD Speci men: Skin, left mid back 06/18 2:13 PM [employer] TECHNICIAN DERMA TOPAT HOLOG Y LABOR AT[facility] Not Available Not Available 08/31/2024 11:25:08 06/11/19 25 06/18/2024 Skin Patho logy biops y repor t pathology report final diagnosis narrative Specim en A. 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 SKIN, left mid back: PSORI ASIFO RM DERMA TITIS WITH RARE EOSIN OPHIL S (L44. 8) (see micro scopi c descr iptio n and comme nt) 06/18 2:13 PM [employer] TECHNICIAN [facility]AT [facility]OLOG [facility] AT[facility] Elect laci yi jose d by Mahamed Tate MD on 2024 at 2:13 PM Not Available Not Available 08/31/2024 11:25:08 06/11/19 25 06/18/2024 Skin Patho logy biops y repor t pathology report relevant history narrative Mycosi s Fungoi norman vs Psoria siform Dermat itis Clini cassie Histo ry Mycos is Fungo ides vs Psori asifo rm Puryear titis 06/18 2:13 PM [employer] TECHNICIAN DERMA TOPAT HOLOG Y LAB[facility] AT[facility] Not Available Not Available 08/31/2024 11:25:08 06/11/19 25 06/18/2024 Skin Patho logy biops y repor t pathology report gross observation narrative Specim en A: Receiv ed is one formal in filled contai ner labele d with the lesly t's name and design ated left mid back. The specim en consis ts of a shave biopsy measur ing 13x11x 1 mm. Jar 0. Gross Descr iptio n Speci men A: Recei george is one forma barbara fille d conta iner label ed with the patie nt's name and desig nated left mid back. The speci men consi sts of a shave biops y measu ring 13x11 x1 mm. Jar 0. 06/18 2:13 PM [employer] TECHNICIAN [facility]AT [facility] Not Available Not Available 08/31/2024 11:25:08 06/11/19 25 06/18/2024 Skin Patho logy biops y repor t pathology report microscopic observation narrative other stain Specim en A. SKIN, left mid back: There is psoria siform hyperp lasia of the epider mis with focal parake ratosi s and spongi osis. There is a superf icial, mainly lympho histio cytic inflam matory infilt rate with rare eosino phils. Grocot t's methen amine silver (GMS) stain fails to highli ght fungal elemen ts in the availa ble sectio ns. The hemato xylin and eosin stain is review ed; immuno histoc hemica l stains are perfor med to furthe r charac terize d the infilt rate. CD3 highli ghts lima us T-cell s in the banded infilt rate and few scatte red within the epider mis. The CD4:CD 8 ratio is approx imatel y 4:1. Cd1a highli ghts Haylee eduar cells in the epider mis. IL-36 immuno histoc hemica l stain demons trates modera te to strong staini ng of the upper epider mis. COMMEN T: The histol ogical differ ential diagno sis includ es early / partia lly treate d psoria sis, which is favore d, a contac t dermat itis, and a chroni c eczema tous dermat itis. The immuno phenot ype of the lympho cytic infilt rate is not consis tent with that of mycosi s fungoi norman, making this diagno sis less favore d. If there is contin ued clinic al concer n for mycosi s fungoi norman consid eratio n should be given to a re biopsy of a sun protec bon area that has not been treate d for two to three weeks. Clinic opatho logic correl ation is recomm ended. Micro scopi c Descr iptio n Speci men A. SKIN, left mid back: There is psori asifo rm hyper plasi a of the epide rmis with focal parak erato sis and spong iosis . There is a super ficia l, mainl y lymph ohist iocyt ic infla mmato ry infil trate with rare eosin ophil s. Groco tt's methe namin e silve r (GMS) stain fails to highl ight funga l eleme nts in the avail able secti ons. The hemat oxyli n and eosin stain is revie wed; immun ohist ochem ical stain s are perfo rmed to furth er pepe cteri zed the infil trate . CD3 highl ights numer ous T-mendez ls in the bande d infil trate and few scatt ered withi n the epide rmis. The CD4:C D8 ratio is appro ximat gwen 4:1. Cd1a highl ights Gray rhans cells in the epide rmis. IL-36 immun ohist ochem ical stain demon strat es moder ate to stron g stain ing of the upper epide rmis. COMME NT: The histo logic al diffe renti al diagn osis inclu norman early / parti ally treat ed psori asis, which is favor ed, a conta ct derma titis , and a chron ic eczem atous derma titis . The immun ophen otype of the lymph ocyti c infil trate is not consi stent with that of mycos is prachi bailon this diagn osis less favor ed. If there is rajat nued clini cassie duyen rn for mycos is kwame ordonez consi derat ion shoul d be given to a re biops y of a sun prote cted area that has not been treat ed for two to three weeks . Clini copat holog ic corre latio n is recom tacho d. 06/18 2:13 PM [employer] TECHNICIAN [facility]AT [facility] Not Available Not Available 08/31/2024 11:25:08 06/11/19 25 06/18/2024 Skin Patho logy biops y repor t service comment An pet crematory worker al and internet researcher al positi ve and negati ve contro ls are approp riate for the histoc hemica l, immuno histoc hemica l and immuno fluore scence stain( s) in this case (if any), except where stated explic itly. The perfor raul charac terist ics of the stain( s) cited in this report were develo ped and its perfor raul charac terist ic determ ined by the Dermat opatho logy Nilam ashby at [facility], direct ed by Dr. Cora Maldonado . These tests need not be, and theref ore are not, approv ed by the [place] Food and Drug Admini strati on. The tests are used for clinic al purpos es. Jarvis martinez Codes Specim en Charge s Stain Charge s [id number] 1 1 1 1 1 1 Discl aimer An exter nal and inter nal posit tiffanie and negat tiffanie contr ols are appro priat e for the histo chemi cassie, immun ohist ochem ical and immun ofluo resce nce stain (s) in this case (if any), excep t where state d expli citly . The perfo rmanc e pepe cteri stics of the stain (s) cited in this repor t were devel oped and its perfo rmanc e pepe cteri stic deter mined by the [facility] topat holog y Labor atory at [facility] , direc bon by Dr. Cora Tate. These tests need not be, and there fore are not, appro george by the [facility] Food and Drug Admin istra tion. The tests are used for clini cassie purpo ses. Amos ng Codes Speci men Charg [place] [id number] 1 [id number] 1 1 1 1 1 1 06/18 2:13 PM [employer] TECHNICIAN DERMA TOPAT [facility]OLOG Y LABOR AT[facility] Not Available Not Available 08/31/2024 11:25:08 06/11/1906/18/2024 Skin Patho logy biops y repor t embedded images Embed ded Image s 06/18 2:13 PM [employer] TECHNICIAN DERMA TOPAT [facility]OLOG Y LABOR AT[facility] Not Available Not Available 08/31/2024 11:25:08 09/15/19 25 09/15/2024 LIPID PANEL cholesterol, total 133 mg/dL 100-19 9 Not Available [facility] ([facility]) [address] [place], [address], 09/15/2024 06:19:40 09/15/19 25 09/15/2024 LIPID PANEL triglyceride s 124 mg/dL 0-149 Not Available [facility] ([facility]) [address] [place], [address], 09/15/2024 06:19:40 09/15/19 25 09/15/2024 LIPID PANEL HDL cholesterol 54 mg/dL >39 Not Available [facility] ([facility]) [address] [place], [address], 09/15/2024 06:19:40 09/15/19 25 09/15/2024 LIPID PANEL VLDL cholesterol cassie 22 mg/dL 5-40 Not Available [facility] ([facility]) [address] [facility], [place], [address], 09/15/2024 06:19:40 09/15/19 25 09/15/2024 LIPID PANEL LDL chol calc ([facility]) 57 mg/dL 0-99 Not Available [facility] ([facility]) [address] [place], [address], 09/15/2024 06:19:40 09/15/19 25 09/15/2024 COMP. METAB OLIC PANEL (14) glucose 124 mg/dL 70-99 above high normal Not Available [facility] ([facility]) [address] [place], [address], 09/15/2024 06:19:41 09/15/19 25 09/15/2024 COMP. METAB OLIC PANEL (14) BUN 15 mg/dL 8-27 Not Available [facility] ([facility]) [address] [place], [address], 09/15/2024 06:19:41 09/15/19 25 09/15/2024 COMP. METAB OLIC PANEL (14) creatinine 1.12 mg/dL 0.76-1 .27 Not Available [facility] ([facility]) [address] [place], [address], 09/15/2024 06:19:41 09/15/19 25 09/15/2024 COMP. METAB OLIC PANEL (14) eGFR 68 mL/mi n/1.7 3 >59 Not Available [facility] ([facility]) [address] [place], [address], 09/15/2024 06:19:41 09/15/19 25 09/15/2024 COMP. METAB OLIC PANEL (14) BUN/creatini ne ratio 13 10-24 Not Available [facility] ([facility]) [address] [place], [address], 09/15/2024 06:19:41 09/15/19 25 09/15/2024 COMP. METAB OLIC PANEL (14) sodium 142 mmol/ L 134-14 4 Not Available [facility] ([facility]) [address] [facility] [place], [address], 09/15/2024 06:19:41 09/15/19 25 09/15/2024 COMP. METAB OLIC PANEL (14) potassium 4.6 mmol/ L 3.5-5. 2 Not Available [facility] ([facility]) [address] [facility] [place], [address], 09/15/2024 06:19:41 09/15/19 25 09/15/2024 COMP. METAB OLIC PANEL (14) chloride 104 mmol/ L 96-106 Not Available [facility] ([facility]) [address] [facility] [place], [address], 09/15/2024 06:19:41 09/15/19 25 09/15/2024 COMP. METAB OLIC PANEL (14) carbon dioxide, total 24 mmol/ L 20-29 Not Available [facility] ([facility]) [address] [facility] [place], [address], 09/15/2024 06:19:41 09/15/19 25 09/15/2024 COMP. METAB OLIC PANEL (14) calcium 9.5 mg/dL 8.6-10 .2 Not Available [facility] ([facility]) [address] [place], [address], 09/15/2024 06:19:41 09/15/19 25 09/15/2024 COMP. METAB OLIC PANEL (14) protein, total 6.5 g/dL 6.0-8. 5 Not Available [facility] ([facility]) [address] [place], [address], 09/15/2024 06:19:41 09/15/19 25 09/15/2024 COMP. METAB OLIC PANEL (14) albumin 4.4 g/dL 3.8-4. 8 Not Available [facility] ([facility]) [address] [place], [address], 09/15/2024 06:19:41 09/15/19 25 09/15/2024 COMP. METAB OLIC PANEL (14) globulin, total 2.1 g/dL 1.5-4. 5 Not Available [facility] ([facility]) [address] [place], [address], 09/15/2024 06:19:41 09/15/19 25 09/15/2024 COMP. METAB OLIC PANEL (14) bilirubin, total 0.3 mg/dL 0.0-1. 2 Not Available [facility] ([facility]) [address] [place], [address], 09/15/2024 06:19:41 09/15/19 25 09/15/2024 COMP. METAB OLIC PANEL (14) alkaline phosphatase 67 IU/L 44-121 Not Available [facility] ([facility]) [address] [place], [address], 09/15/2024 06:19:41 09/15/19 25 09/15/2024 COMP. METAB OLIC PANEL (14) AST (SGOT) 34 IU/L 0-40 Not Available [facility] ([facility]) [address] [place], [address], 09/15/2024 06:19:41 09/15/19 25 09/15/2024 COMP. METAB OLIC PANEL (14) ALT (SGPT) 34 IU/L 0-44 Not Available [facility] ([facility]) [address] [place], [address], 09/15/2024 06:19:41 09/15/19 25 09/15/2024 HEMOG LOBIN A1C hemoglobin A1C 6.0 % 4.8-5. 6 above high normal Predi abete s: 5.7 - 6.4 Diabe harrison: >6.4 Glyce roscoe contr ol for adult s with diabe harrison: <7.0 Not Available [facility] ([facility]) [address] [facility], [place], [address], 09/15/2024 06:19:41 09/15/1909/14/2024 CBC WITH DIFFE RENTI AL/PL ATELE T WBC 9.8 x10e3 /uL 3.4-10 .8 Not Available [facility] ([facility]) [address] [facility], [place], [address], 09/15/2024 06:19:42 09/15/19 25 09/14/2024 CBC WITH DIFFE RENTI AL/PL ATELE T RBC 4.66 x10e6 /uL 4.14-5 .80 Not Available [facility] ([facility]) [address] [facility], [place], [address], 09/15/2024 06:19:42 09/15/19 25 09/14/2024 CBC WITH DIFFE RENTI AL/PL ATELE T hemoglobin 15.3 g/dL 13.0-1 7.7 Not Available [facility] ([facility]) [address] [place], [address], 09/15/2024 06:19:42 09/15/1909/14/2024 CBC WITH DIFFE RENTI AL/PL ATELE T hematocrit 47.2 % 37.5-5 1.0 Not Available [facility] ([facility]) [address] [place], [address], 09/15/2024 06:19:42 09/15/19 25 09/14/2024 CBC WITH DIFFE RENTI AL/PL ATELE T MCV 101 fL 79-97 above high normal Not Available [facility] ([facility]) [address] [place], [address], 09/15/2024 06:19:42 09/15/19 25 09/14/2024 CBC WITH DIFFE RENTI AL/PL ATELE T MCH 32.8 pg 26.6-3 3.0 Not Available [facility] ([facility]) [address] [facility], [place], [address], 09/15/2024 06:19:42 09/15/19 25 09/14/2024 CBC WITH DIFFE RENTI AL/PL ATELE T MCHC 32.4 g/dL 31.5-3 5.7 Not Available [facility] ([facility]) [address] [facility], [place], [address], 09/15/2024 06:19:42 09/15/19 25 09/14/2024 CBC WITH DIFFE RENTI AL/PL ATELE T RDW 13.5 % 11.6-1 5.4 Not Available [facility] ([facility]) [address] [facility], [place], [address], 09/15/2024 06:19:42 09/15/19 25 09/14/2024 CBC WITH DIFFE RENTI AL/PL ATELE T platelets 361 x10e3 /uL 150-45 0 Not Available [facility] ([facility]) [address] [facility], [place], [address], 09/15/2024 06:19:42 09/15/19 25 09/14/2024 CBC WITH DIFFE RENTI AL/PL ATELE T neutrophils 57 % notest ab. Not Available [facility] ([facility]) [address] [place], [address], 09/15/2024 06:19:42 09/15/19 25 09/14/2024 CBC WITH DIFFE RENTI AL/PL ATELE T lymphs 25 % notest ab. Not Available [facility] ([facility]) [address] [place], [address], 09/15/2024 06:19:42 09/15/19 25 09/14/2024 CBC WITH DIFFE RENTI AL/PL ATELE T monocytes 8 % notest ab. Not Available [facility] ([facility]) [address] [facility] [place], [address], 09/15/2024 06:19:42 09/15/19 25 09/14/2024 CBC WITH DIFFE RENTI AL/PL ATELE T eos 7 % notest ab. Not Available [facility] ([facility]) [address] [facility], [place], [address], 09/15/2024 06:19:42 09/15/19 25 09/14/2024 CBC WITH DIFFE RENTI AL/PL ATELE T basos 3 % notest ab. Not Available [facility] ([facility]) [address] [facility], [place], [address], 09/15/2024 06:19:42 09/15/19 25 09/14/2024 CBC WITH DIFFE RENTI AL/PL ATELE T neutrophils (absolute) 5.6 x10e3 /uL 1.4-7. 0 Not Available [facility] ([facility]) [address] [place], [address], 09/15/2024 06:19:42 09/15/19 25 09/14/2024 CBC WITH DIFFE RENTI AL/PL ATELE T lymphs (absolute) 2.5 x10e3 /uL 0.7-3. 1 Not Available [facility] ([facility]) [address] [place], [address], 09/15/2024 06:19:42 09/15/19 25 09/14/2024 CBC WITH DIFFE RENTI AL/PL ATELE T monocytes(ab solute) 0.8 x10e3 /uL 0.1-0. 9 Not Available [facility] ([facility]) [address] [place], [address], 09/15/2024 06:19:42 09/15/19 25 09/14/2024 CBC WITH DIFFE RENTI AL/PL ATELE T eos (absolute) 0.6 x10e3 /uL 0.0-0. 4 above high normal Not Available [facility] ([facility]) [address] [place], [address], 09/15/2024 06:19:42 09/15/19 25 09/14/2024 CBC WITH DIFFE RENTI AL/PL ATELE T baso (absolute) 0.3 x10e3 /uL 0.0-0. 2 above high normal Not Available [facility] ([facility]) [address] [place], [address], 09/15/2024 06:19:42 09/15/19 25 09/14/2024 CBC WITH DIFFE RENTI AL/PL ATELE T immature granulocytes 0 % notest ab. Not Available [facility] ([facility]) [address] [facility], [place], [address], 09/15/2024 06:19:42 09/15/19 25 09/14/2024 CBC WITH DIFFE RENTI AL/PL ATELE T immature grans (abs) 0.0 x10e3 /uL 0.0-0. 1 Not Available [facility] ([facility]) [address] [place], [address], 09/15/2024 06:19:42 02/16/20 25 02/16/2025 LIPID PANEL cholesterol, total 168 mg/dL 100-19 9 Not Available [facility] ([facility]) [address] [place], [address], 02/16/2025 08:29:15 02/16/20 25 02/16/2025 LIPID PANEL triglyceride s 111 mg/dL 0-149 Not Available [facility] ([facility]) [address] [place], [address], 02/16/2025 08:29:15 02/16/20 25 02/16/2025 LIPID PANEL HDL cholesterol 70 mg/dL >39 Not Available [facility] ([facility]) [address] [place], [address], 02/16/2025 08:29:15 02/16/20 25 02/16/2025 LIPID PANEL VLDL cholesterol cassie 20 mg/dL 5-40 Not Available [facility] ([facility]) [address] [facility], [place], [address], 02/16/2025 08:29:15 02/16/20 25 02/16/2025 LIPID PANEL LDL chol calc ([facility]) 78 mg/dL 0-99 Not Available [facility] ([facility]) [address] [facility], [place], [address], 02/16/2025 08:29:15 02/16/2002/15/2025 COMP. METAB OLIC PANEL (14) interpretati on: COMMEN T GFR estim ate at the follo wing level for >or=3 month s is class ified as follo ws: GFR WITH KIDNE Y DAMAG E WITHO UT KIDNE Y DAMAG E >or=9 0 Stage 1 Antonia l 60-89 Stage 2 Decr eased GFR 30-59 Stage 3 Stage 3 15-29 Stage 4 Stage 4 <15 (or dialy sis) Stage 5 Stage 5 Estim ated GFR will over estim ate true GFR if serum creat inine is risin g as in acute renal failu re and will under estim ate true GFR if serum creat inine is decli melania as in resol ving acute renal failu re. Addit ional infor samira arredondo may be found at [email or web address] org. Not Available [facility] ([facility]) [address] [facility], [place], [address], 02/16/2025 08:29:15 02/16/20 25 02/16/2025 COMP. METAB OLIC PANEL (14) glucose 91 mg/dL 70-99 Not Available [facility] ([facility]) [address] [facility], [place], [address], 02/16/2025 08:29:15 02/16/20 25 02/16/2025 COMP. METAB OLIC PANEL (14) BUN 13 mg/dL 8-27 Not Available [facility] ([facility]) [address] [facility] [place], [address], 02/16/2025 08:29:15 02/16/20 25 02/16/2025 COMP. METAB OLIC PANEL (14) creatinine 1.08 mg/dL 0.76-1 .27 Not Available [facility] ([facility]) [address] [facility] [place], [address], 02/16/2025 08:29:15 02/16/20 25 02/16/2025 COMP. METAB OLIC PANEL (14) eGFR 71 mL/mi n/1.7 3 >59 Not Available [facility] ([facility]) [address] [facility] [place], [address], 02/16/2025 08:29:15 02/16/20 25 02/16/2025 COMP. METAB OLIC PANEL (14) BUN/creatini ne ratio 12 10-24 Not Available [facility] ([facility]) [address] [facility] [place], [address], 02/16/2025 08:29:15 02/16/20 25 02/16/2025 COMP. METAB OLIC PANEL (14) sodium 143 mmol/ L 134-14 4 Not Available [facility] ([facility]) [address] [facility] [place], [address], 02/16/2025 08:29:15 02/16/20 25 02/16/2025 COMP. METAB OLIC PANEL (14) potassium 4.7 mmol/ L 3.5-5. 2 Not Available [facility] ([facility]) [address] [facility] [place], [address], 02/16/2025 08:29:15 02/16/20 25 02/16/2025 COMP. METAB OLIC PANEL (14) chloride 103 mmol/ L 96-106 Not Available [facility] ([facility]) [address] [place], [address], 02/16/2025 08:29:15 02/16/20 25 02/16/2025 COMP. METAB OLIC PANEL (14) carbon dioxide, total 20 mmol/ L Not Available [facility] ([facility]) [address] [facility], [place], [address], 02/16/2025 08:29:15 02/16/20 25 02/16/2025 COMP. METAB OLIC PANEL (14) calcium 9.9 mg/dL 8.6-10 .2 Not Available [facility] ([facility]) [address] [facility], [place], [address], 02/16/2025 08:29:15 02/16/20 25 02/16/2025 COMP. METAB OLIC PANEL (14) protein, total 7.0 g/dL 6.0-8. 5 Not Available [facility] ([facility]) [address] [facility], [place], [address], 02/16/2025 08:29:15 02/16/20 25 02/16/2025 COMP. METAB OLIC PANEL (14) albumin 4.8 g/dL 3.8-4. 8 Not Available [facility] ([facility]) [address] [facility], [place], [address], 02/16/2025 08:29:15 02/16/20 25 02/16/2025 COMP. METAB OLIC PANEL (14) globulin, total 2.2 g/dL 1.5-4. 5 Not Available [facility] ([facility]) [address] [facility] [place], [address], 02/16/2025 08:29:15 02/16/20 25 02/16/2025 COMP. METAB OLIC PANEL (14) bilirubin, total 0.3 mg/dL 0.0-1. 2 Not Available [facility] ([facility]) [address] [facility] [place], [address], 02/16/2025 08:29:15 02/16/20 25 02/16/2025 COMP. METAB OLIC PANEL (14) alkaline phosphatase 66 IU/L 47-123 Not Available [facility] ([facility]) [address] [facility], [place], [address], 02/16/2025 08:29:15 02/16/20 25 02/16/2025 COMP. METAB OLIC PANEL (14) AST (SGOT) 35 IU/L 0-40 Not Available [facility] ([facility]) [address] [facility], [place], [address], 02/16/2025 08:29:15 02/16/2002/16/2025 COMP. METAB OLIC PANEL (14) ALT (SGPT) 38 IU/L 0-44 Not Available [facility] ([facility]) [address] [facility], [place], [address], 02/16/2025 08:29:15 02/16/20 25 02/15/2025 CBC WITH DIFFE RENTI AL/PL ATELE T WBC 10.1 x10e3 /uL 3.4-10 .8 Not Available [facility] ([facility]) [address] [facility], [place], [address], 02/16/2025 08:29:16 02/16/20 25 02/15/2025 CBC WITH DIFFE RENTI AL/PL ATELE T RBC 4.63 x10e6 /uL 4.14-5 .80 Not Available [facility] ([facility]) [address] [facility], [place], [address], 02/16/2025 08:29:16 02/16/2002/15/2025 CBC WITH DIFFE RENTI AL/PL ATELE T hemoglobin 15.4 g/dL 13.0-1 7.7 Not Available [facility] ([facility]) [address] [place], [address], 02/16/2025 08:29:16 02/16/20 25 02/15/2025 CBC WITH DIFFE RENTI AL/PL ATELE T hematocrit 46.9 % 37.5-5 1.0 Not Available [facility] ([facility]) [address] [place], [address], 02/16/2025 08:29:16 02/16/20 25 02/15/2025 CBC WITH DIFFE RENTI AL/PL ATELE T MCV 101 fL 79-97 above high normal Not Available [facility] ([facility]) [address] [place], [address], 02/16/2025 08:29:16 02/16/20 25 02/15/2025 CBC WITH DIFFE RENTI AL/PL ATELE T MCH 33.3 pg 26.6-3 3.0 above high normal Not Available [facility] ([facility]) [address] [place], [address], 02/16/2025 08:29:16 02/16/20 25 02/15/2025 CBC WITH DIFFE RENTI AL/PL ATELE T MCHC 32.8 g/dL 31.5-3 5.7 Not Available [facility] ([facility]) [address] [place], [address], 02/16/2025 08:29:16 02/16/20 25 02/15/2025 CBC WITH DIFFE RENTI AL/PL ATELE T RDW 12.9 % 11.6-1 5.4 Not Available [facility] ([facility]) [address] [place], [address], 02/16/2025 08:29:16 02/16/20 25 02/15/2025 CBC WITH DIFFE RENTI AL/PL ATELE T platelets 366 x10e3 /uL 150-45 0 Not Available [facility] ([facility]) [address] [place], [address], 02/16/2025 08:29:16 02/16/20 25 02/15/2025 CBC WITH DIFFE RENTI AL/PL ATELE T neutrophils 57 % notest ab. Not Available [facility] ([facility]) [address] [facility], [place], [address], 02/16/2025 08:29:16 02/16/20 25 02/15/2025 CBC WITH DIFFE RENTI AL/PL ATELE T lymphs 26 % notest ab. Not Available [facility] ([facility]) [address] [facility], [place], [address], 02/16/2025 08:29:16 02/16/2002/15/2025 CBC WITH DIFFE RENTI AL/PL ATELE T monocytes 8 % notest ab. Not Available [facility] ([facility]) [address] [facility], [place], [address], 02/16/2025 08:29:16 02/16/20 25 02/15/2025 CBC WITH DIFFE RENTI AL/PL ATELE T eos 5 % notest ab. Not Available [facility] ([facility]) [address] [facility], [place], [address], 02/16/2025 08:29:16 02/16/20 25 02/15/2025 CBC WITH DIFFE RENTI AL/PL ATELE T basos 3 % notest ab. Not Available [facility] ([facility]) [address] [facility], [place], [address], 02/16/2025 08:29:16 02/16/2002/15/2025 CBC WITH DIFFE RENTI AL/PL ATELE T neutrophils (absolute) 5.9 x10e3 /uL 1.4-7. 0 Not Available [facility] ([facility]) [address] [facility], [place], [address], 02/16/2025 08:29:16 02/16/20 25 02/15/2025 CBC WITH DIFFE RENTI AL/PL ATELE T lymphs (absolute) 2.6 x10e3 /uL 0.7-3. 1 Not Available [facility] ([facility]) [address] [place], [address], 02/16/2025 08:29:16 02/16/20 25 02/15/2025 CBC WITH DIFFE RENTI AL/PL ATELE T monocytes(ab solute) 0.8 x10e3 /uL 0.1-0. 9 Not Available [facility] ([facility]) [address] [place], [address], 02/16/2025 08:29:16 02/16/20 25 02/15/2025 CBC WITH DIFFE RENTI AL/PL ATELE T eos (absolute) 0.5 x10e3 /uL 0.0-0. 4 above high normal Not Available [facility] ([facility]) [address] [place], [address], 02/16/2025 08:29:16 02/16/20 25 02/15/2025 CBC WITH DIFFE RENTI AL/PL ATELE T baso (absolute) 0.3 x10e3 /uL 0.0-0. 2 above high normal Not Available [facility] ([facility]) [address] [place], [address], 02/16/2025 08:29:16 02/16/20 25 02/15/2025 CBC WITH DIFFE RENTI AL/PL ATELE T immature granulocytes 1 % notest ab. Not Available [facility] ([facility]) [address] [place], [address], 02/16/2025 08:29:16 02/16/20 25 02/15/2025 CBC WITH DIFFE RENTI AL/PL ATELE T immature grans (abs) 0.1 x10e3 /uL 0.0-0. 1 Not Available [facility] ([facility]) [address] [place], [address], 02/16/2025 08:29:16 01/02/20 24 elect rocar diogr am No observ ation record ed. SAMY In-Office Order Internal Use Only DO Not Attach Compendium DO Not Attach Compendium, Do Not Delete/merge, [id number] 01/02/2024 10:15:32 01/05/20 24 01/02/2024 elect rocar diogr am No observ ation record ed. SAMY In-Office Order Internal Use Only DO Not Attach Compendium DO Not Attach Compendium, Do Not Delete/merge, [id number] 01/05/2024 09:45:40 03/05/20 25 03/04/2025 imagi ng/di agnos tic resul t No observ ation record ed. [address], [address], 03/05/2025 00:49:02 Result Notes None recorded. Problems Name Problem SNOMED Code Status Onset Date Resolution Date Notes Provider Name and Address Organization Details Recorded Time Essential hypertension 68578383 Active 2023 Domonique Abernathy MA null, [place] - [facility] 4 10:40:33 Benign prostatic hyperplasia 147323074 Active 2023 Domonique Abernathy [place], [place] [facility] 4 10:40:34 Hyperlipidemia 59767773 Active 2023 Domonique Abernathy [place], [place] [facility] 10:40:35 History of malignant neoplasm of prostate 263444477 Active 2023 Domonique Abernathy [place], [place] [facility] 4 10:40:36 Psoriasis 4021662 Active 2023 Juancarlos Easley MD Attn: Pretty martinez,[address] [place], [address], [place] - [facility] 4 22:13:50 Dizziness 857940847 Active 2023 Juancarlos Easley MD Attn: Pretty martinez,[address] [facility], [place], [address], [place] - [facility] 4 22:13:55 Prediabetes 957271380 Active 2024 Juancarlos Easley MD Attn: Pretty martinez,[address] [facility], [place], [address], [facility] 21:57:18 Problem Notes None recorded. Procedures Surgical History Date Name Laterality Status Provider Name and Address Organization Details Recorded Time Knee Surgery completed Domonique Abernathy MA [facility] 07/25/2023 10:35:18 Vasectomy completed Domonique Abernathy MA [facility] 07/25/2023 10:35:30 procedure on hand completed Domonique Abernathy MA [facility] 07/25/2023 10:35:38 procedure on wrist completed Domonique Abernathy MA [facility] 07/25/2023 10:35:53 procedure on elbow completed Domonique Abernathy [facility] 07/25/2023 10:35:59 Imaging Results None recorded. Procedure Notes None recorded. Medical Equipment None Reported. Allergies Allergen ID Allergen Name Allergen Category Reaction Reaction Severity Criticality Documentation Date Start Date Code Code System Note Provider Name and Address Organization Details Recorded Time nifedipin e medicatio n rash Not available Not available 02/14/2025 7417 RxNorm Not Available samy - External Data Service - prod 17:40:24 Medications Name Sig Start Date Stop Date Status Note LastModified by Organization Details LastModified Time alcohol swabs 70% pad USE DIRECTED 02/15 completed Not Available Not Available Not Available losartan 50 mg tablet TAKE 1 AND 1/2 TABLETS BY MOUTH DAILY 07/24 completed Not Available Not Available Not Available doxycycline hyclate 100 mg capsule TAKE 1 CAPSULE BY MOUTH TWICE A DAY 07/24 completed Not Available Not Available Not Available azithromyci n 250 mg tablet TAKE 2 TABLETS BY MOUTH TODAY, THEN TAKE 1 TABLET DAILY FOR 4 DAYS DIRECTED 02/15 completed Not Available Not Available Not Available ofloxacin 0.3 % eye drops 1 DROP 3 TIMES PER DAY STARTING 2 DAYS PRIOR TO SURGERY, CONTINUIN G FOR 1 WEEK AFTER SURGERY. 02/15 completed Not Available Not Available Not Available prednisone 20 mg tablet PLEASE SEE ATTACHED FOR DETAILED DIRECTION S 07/24 completed Not Available Not Available Not Available betamethaso ne, augmented 0.05 % topical cream APPLY TWICE A DAY NEEDED TO HANDS DIRECTED FOR FLARING active Not Available Not Available No t Available nifedipine ER 30 mg tablet,exte nded release TAKE 1 TABLET BY MOUTH EVERY DAY 07/24 completed Not Available Not Available Not Available amlodipine 5 mg tablet TAKE 1 TABLET BY MOUTH EVERY DAY active Not Available Not Available No t Available ciprofloxac in 500 mg tablet TAKE 1 TABLET BY MOUTH EVERY 12 HOURS FOR 7 DAYS 01/01 completed Not Available Not Available Not Available triamcinolo ne acetonide 0.1 % topical cream APPLY TO AFFECTED AREA TWICE A DAY NEEDED 07/24 completed Not Available Not Available Not Available ketorolac 0.5 % eye drops USE 1 DROP 4 TIMES PER DAY STARTING 2 DAYS PRIOR TO SURGERY, CONTINUIN G FOR 2 WEEKS AFTER SURGERY. 02/15 completed Not Available Not Available Not Available prednisolon e acetate 1 % eye drops,suspe nsion USE 1 DROP 3 TIMES PER DAY STARTING AFTER SURGERY, CONTINUIN G FOR 3 WEEKS 02/15 completed Not Available Not Available Not Available methotrexat e sodium 2.5 mg tablet TAKE TWO TABLETS IN MORNING AND TWO TABLETS IN EVENING EVERY FRIDAY UNTIL FOLLOW UP. active Not Available Not Available No t Available tamsulosin 0.4 mg capsule TAKE 1 CAPSULE BY MOUTH EVERY DAY active Not Available Not Available No t Available telmisartan 40 mg tablet TAKE 1 AND 1/2 TABLETS BY MOUTH ONCE DAILY 07/24 completed Not Available Not Available Not Available telmisartan 80 mg tablet TAKE 1 TABLET BY MOUTH EVERY DAY active Not Available Not Available No t Available folic acid 1 mg tablet TAKE 1 TABLET BY MOUTH EVERY DAY DIRECTED active Not Available Not Available No t Available alcohol swabs USE DIRECTED 02/15 completed Not Available Not Available Not Available mupirocin 2 % topical ointment APPLY THIN LAYER TO AFFECTED AREAS ON BUTTOCKS 2X DAILY NEEDED 07/24 completed Not Available Not Available Not Available clobetasol 0.05 % topical ointment APPLY THIN LAYER TO AFFECTED AREAS UP TO TWO TIMES DAILY NEEDED. NOT FOR FACE, GROIN, OR AXILLA 02/15 completed Not Available Not Available Not Available methylpredn isolone 4 mg tablets in a dose pack TAKE 6 TABLETS ON DAY 1 DIRECTED ON PACKAGE AND DECREASE BY 1 TAB EACH DAY FOR A TOTAL OF 6 DAYS 07/24 completed Not Available Not Available Not Available ketoconazol e 2 % topical cream APPLY TO AFFECTED AREA TWICE A DAY UNTIL CLEAR 02/15 completed Not Available Not Available Not Available hydroxyzine HCl 10 mg tablet TAKE 1 TABLET BY MOUTH TWICE A DAY TOLERATED 07/24 completed Not Available Not Available Not Available betamethaso ne dipropionat e 0.05 % lotion APPLY TO SCALP TWICE A DAY NEEDED 07/24 completed Not Available Not Available Not Available [employer] USE DIRECTED 02/15 completed Not Available Not Available Not Available rosuvastati n 10 mg tablet TAKE 1 TABLET BY MOUTH EVERY DAY active Not Available Not Available No t Available omega-3 acid ethyl esters 1 gram capsule TAKE 2 CAPSULES BY MOUTH TWICE A DAY WITH FOOD active Not Available Not Available No t Available nebivolol 10 mg tablet TAKE 1 TABLET BY MOUTH EVERY DAY active Not Available Not Available No t Available Band-Aid Tough Strips 1 3/4 X 4 bandage USE DIRECTED 02/15 completed Not Available Not Available Not Available Dupixent 300 mg/2 mL subcutaneou s pen injector INJECT 300 MG (1 PEN) UNDER THE SKIN EVERY TWO WEEKS (L20.89) 02/15 completed Not Available Not Available Not Available Vitals Date Recorded Body height Body mass index (BMI) Body weight Heart rate Oxygen saturation Oxygen saturation in Arterial blood by Pulse oximetry Systolic And Diastolic Provider Name and Address Organization Details Last Updated DateTime 5 182.88 cm 29.7 kg/m2 32038.0 1 g 58 /min 97 % 97 % 120/68 mm[Hg] Andreia Lopez [place] [facility] 5 09:59:20 Date Recorded Body height Heart rate Body mass index (BMI) Body weight Systolic And Diastolic Provider Name and Address Organization Details Last Updated DateTime 07/25/2023 182.88 cm 59 /min 29 kg/m2 59436.77 g 130/72 mm[Hg] Domonique Abernathy [place] [facility] 07/25/2023 10:39:28 Date Recorded Body height Body mass index (BMI) Body weight Heart rate Oxygen saturation Oxygen saturation in Arterial blood by Pulse oximetry Systolic And Diastolic Provider Name and Address Organization Details Last Updated DateTime 5 182.88 cm 28.2 kg/m2 89855.1 4 g 56 /min 96 % 96 % 138/78 mm[Hg] Lazarus Hill MA [facility] 5 10:17:33 Date Recorded Heart rate Heart rate Heart rate Systolic And Diastolic Systolic And Diastolic Systolic And Diastolic Provider Name and Address Organization Details Last Updated DateTime 4 57 /min 54 /min 59 /min 126/74 mm[Hg] 108/68 mm[Hg] 102/64 mm[Hg] Ale Avtar Rinku [facility] 4 10:16:47 Date Recorded Body height Body mass index (BMI) Body weight Heart rate Oxygen saturation Oxygen saturation in Arterial blood by Pulse oximetry Systolic And Diastolic Provider Name and Address Organization Details Last Updated DateTime 4 182.88 cm 28.6 kg/m2 82755.3 5 g 63 /min 95 % 95 % 122/64 mm[Hg] Andreia Lopez MA [facility] 4 09:49:05 Date Recorded Body height Body mass index (BMI) Body weight Heart rate Oxygen saturation Oxygen saturation in Arterial blood by Pulse oximetry Systolic And Diastolic Provider Name and Address Organization Details Last Updated DateTime 5 182.88 cm 28.5 kg/m2 35193.4 8 g 50 /min 98 % 98 % 158/80 mm[Hg] Shellie Garcia MA [facility] 5 10:29:21 Social History Question Answer Notes LastModified by Organizat ion Details LastModified Time Tobacco Smoking Status Never Smoker stopped in 2016 Domonique Abernathy MA null, [facility] 07/25/2023 10:34:14 Do You Have An Advance Directive? No Information not available 07/25/2023 How Many Years Have You Consumed Alcohol? 55 Information not available 07/25/2023 Are You Blind Or Do You Have Difficulty Seeing? No Information not available 07/25/2023 What Is Your Level Of Caffeine Consumption? Heavy Information not available 07/25/2023 In The 14 Days Before Symptom Onset, Have You Had Close Contact With A Laboratory-confir med COVID-19 While That Case Was Ill? No Information not available 07/25/2023 In The 14 Days Before Symptom Onset, Have You Had Close Contact With A Person Who Is Under Investigation For COVID-19 While That Person Was Ill? No Information not available 07/25/2023 Have You Been To An Area Known To Be High Risk For COVID-19? No Information not available 07/25/2023 Are You Deaf Or Do You Have Serious Difficulty Hearing? No Information not available 07/25/2023 What Type Of Diet Are You Following? REGULAR Information not available 07/25/2023 Are There Any Guns Present In Your Home? No Information not available 01/02/2024 What Was The Date Of Your Most Recent Tobacco Screening? 02/15/2025 gwardma Information not available 02/15/2025 What Is Your Relationship Status? Information not available 07/25/2023 Do You Use Your Seat Belt Or Car Seat Routinely? Yes Information not available 07/25/2023 Do You Have Smoke And Carbon Monoxide Detectors In Your Home? Yes Information not available 07/25/2023 Do You Use Sunscreen Routinely? Yes Information not available 01/02/2024 Has Tobacco Cessation Counseling Been Provided? No Information not available 07/25/2023 Sex: Male Functional Status Question Answer Note LastModified by Organizat ion Details LastModified Time Do you use any illicit or recreational drugs? No Information not available 07/25/2023 Do you or have you ever used any other forms of tobacco or nicotine? Yes Information not available 07/25/2023 What is your level of alcohol consumption? Occasional Information not available 07/25/2023 Do you or have you ever used smokeless tobacco? Former smokeless tobacco user Information not available 07/25/2023 Are you currently employed? No Information not available 07/25/2023 Are you able to care for yourself independently? Yes Information not available 07/25/2023 Do you or have you ever used e-cigarettes or vape? Never used electronic cigarettes Information not available 07/25/2023 What is your exercise level? Moderate Information not available 07/25/2023 Mental Status Question Answer Note LastModified by Organization D etails LastModified Time Do you feel stressed (tense, restless, nervous, or anxious, or unable to sleep at night)? [id number] Information not available 07/25/2023 Family History Relationship Description Onset Age of this Age Resolved Age Notes LastModified by Organization Details LastModified Time Father Hypertensive disorder cyahlma Not available 2023 10:32:00 Father Malignant neoplasm of pancreas cyahlma Not available 2023 10:32:46 Mother Malignant neoplasm of stomach cyahlma Not available 2023 10:32:19 Notes:No family history nunez ge, me/rma Medical History Condition Response Coronary Artery Disease N Other N High Blood Pressure Y Atrial Fibrillation N Kidney or Bladder Problems N Thyroid Problems N GI Problems N Depression N COPD N Blood Clots N Skin Problems Y Anemia N Heart Attack (ND) N Anxiety Disorder N Diabetes N Muscle, Joint, or Bone Problems N Seizures/Epilepsy N Acid Reflux (GERD) N Cancer Y Stroke N Asthma N Allergies N High Cholesterol Y Hepatitis N Liver Disease N Headaches N Heart Failure N Osteoporosis N Immunizations Vaccine Type Date Status Note Provider Nam e and Address Organization Details Recorded Time zoster recombinant 2 completed MA[place]AD [place] [facility] 07/25/2023 10:31:34 zoster recombinant 2 completed Domonique [place] [facility] 07/25/2023 10:31:34 Influenza, high-dose, quadrivalent, PF 2 completed [place] [facility] 07/25/2023 10:31:34 Influenza, high-dose, quadrivalent, PF 3 completed [place] [facility] 07/25/2023 10:31:34 Influenza, high-dose, quadrivalent, PF 1 completed Domonique [place] [facility] 07/25/2023 10:31:34 Influenza, high-dose, quadrivalent, PF 0 completed Dom[place] [facility] 07/25/2023 10:31:34 COVID-19, mRNA, LNP-S, PF, 30 mcg/0.3 mL dose 1 [place] [facility] 07/25/2023 10:31:34 COVID-19, mRNA, LNP-S, PF, 30 mcg/0.3 mL dose 1 [place] [facility] 07/25/2023 10:31:34 COVID-19 vaccine, vector-nr, [id number], PF, 0.5 mL 1 [place] [facility] 07/25/2023 10:31:34 COVID-19, mRNA, LNP-S, PF, 30 mcg/0.3 mL dose, francisco-sucrose 2 [place] [facility] 07/25/2023 10:31:34 COVID-19, mRNA, LNP-S, bivalent, PF, 30 mcg/0.3 mL dose 3 [place] [facility] 07/25/2023 10:31:34 COVID-19, mRNA, LNP-S, bivalent, PF, 30 mcg/0.3 mL dose 2 completed [place]AD [place] [facility] 07/25/2023 10:31:34 COVID-19, mRNA, LNP-S, PF, francisco-sucrose, 30 mcg/0.3 mL 3 [place] [facility] 07/25/2023 10:31:34 pneumococcal polysaccharide PPV23 9 [place] [facility] 07/25/2023 10:31:34 Pneumococcal conjugate PCV 13 8 [place] [facility] 07/25/2023 10:31:34 Influenza, high-dose, trivalent, PF 8 completed Domonique [place] [facility] 07/25/2023 10:31:34 Influenza, high-dose, trivalent, PF 6 completed Domon[place] [facility] 07/25/2023 10:31:34 Influenza, high-dose, trivalent, PF 7 completed Domon[place] [facility] 07/25/2023 10:31:34 Influenza, high-dose, trivalent, PF 9 completed Domon[place] [facility] 07/25/2023 10:31:34 Influenza, split virus, trivalent, preservative 3 completed Domonique [place] [facility] 07/25/2023 10:31:34 Influenza, split virus, trivalent, preservative 4 completed Domonique [place] [facility] 07/25/2023 10:31:34 Influenza, split virus, trivalent, PF 7 completed Domonique [place] [facility] 07/25/2023 10:31:34 Influenza, split virus, quadrivalent, PF 5 completed Dom[place] [facility] 07/25/2023 10:31:34 RSV, recombinant, protein subunit RSVpreF, adjuvant reconstituted, 0.5 mL, PF 4 completed Andreia [place] [facility] 05/11/2024 09:52:02 COVID-19, mRNA, LNP-S, PF, francisco-sucrose, 30 mcg/0.3 mL 4 completed Andreia [place] [facility] 05/11/2024 09:52:02 Influenza, high-dose, trivalent, PF 4 completed Andre[place] [facility] 05/11/2024 09:52:02 COVID-19, mRNA, LNP-S, PF, francisco-sucrose, 30 mcg/0.3 mL 5 completed Not Available [facility] 02/15/2025 10:11:59 COVID-19, mRNA, LNP-S, PF, francisco-sucrose, 30 mcg/0.3 mL 5 completed Not Available [facility] 02/15/2025 10:11:59 Influenza, high-dose, trivalent, PF 5 completed Not Available [facility] 02/15/2025 10:11:59 Past Encounters Encounter ID Performer Location Encounter Start Date Encounter Closed Date Diagnosis/Indication Diagnosis SNOMED-CT Code Diagnosis ICD10 Code Diagnosis IMO Codes Diagnosis [id number] [facility] [address] [place] [address] [phone] 0 07/25/2023 09:58:44 07/25/2023 10:43:21 Essential hypertension 66683536 I10 Benign pro static hyperplasia 510663776 N40.0 Hyperlipidemia 09381999 E78.5 History of malignant neoplasm of prostate 703362392 Z85.46 Chronic dermatitis 65001 007 L30.9 [id number] Juancarlos Easley MD [facility] (Adult Med) [address] [place] [address] [phone] 0 01/02/2024 09:39:38 01/02/2024 10:35:49 Dizziness 369908493 R42 Essential hypertension 46678241 I10 Hyperlipidemia 39725219 E78.5 Psoriasis 3232764 L40.9 [id number] Juancarlos Easley MD [facility] (Adult Med) [address] [place] [address] [phone] 05/11/2024 09:47:40 05/11/2024 10:32:11 Body mass index 25-29 - overweight 112149904 Z68.29 Overweight 462700462 E66 .3 Skin lesion 16122045 L98 .9 Essential hypertension 01447849 I10 Hyperlipidemia 35104197 E78.5 Psoriasis 3812412 L40.9 [id number] MD Sandra Hollingsworth (Adult Med) [address] [place] [address] [id number] 09/14/2024 09:59:34 09/14/2024 11:00:57 Overweight in adulthood with body mass index of 25 or more but less than 30 766427043 Z68.28 E66.3 390354 [id number] Prediabetes 662325551 R7 3.03 Hyperlipidemia 87093845 E78.5 Essential hypertension 06025838 I10 [id number] Juancarlos Easley MD [facility] (Adult Med) [address] [place] [address] [phone] 0 02/15/2025 10:08:47 02/15/2025 10:57:20 Overweight in adulthood with body mass index of 25 or more but less than 30 947121410 Z68.28 589466 28.5 Essential hypertension 83797135 I10 Hyperlipidemia 94694397 E78.5 Prediabetes 830273317 R7 3.03 Health Concerns Section Related Observation LastModified by Organization Detai ls LastModified Time None Recorded Concern Status LastModified by Organization Details LastModified Time None Recorded Advance Directives Directive N: Payers Insurance Date Sequence Insurance Name Policy Number Policy Park Covered Member ID Park Member ID Guarantor Name 02/28/2025 1 [employer] (MEDICARE REPLACEMENT/ ADVANTAGE - PPO) [id number] Angel Aguilar [id number] Angel Aguilar Notes Date Note Type Note Provider Name and Address Organization Details Recorded Time 07/25/2023 text/html Hypertension no headache no dizziness history of prostate cancer doing fine using tamsulosin without difficulty hyperlipidemia tries to follow low-fat diet chronic dermatitis doing well on Dupixent Juancarlos Easley MD Attn: [address] [place], [address], [facility] 07/26/2023 15:03:54 01/02/2024 text/html Hypertension no headache no dizziness history of prostate cancer doing fine using tamsulosin with Dizziness on standing hyperlipidemia tries to follow low-fat diet chronic dermatitis doing well on Dupixent. Juancarlos Easley MD Attn: [address] [facility], [place], [address], [facility] 01/04/2024 22:14:13 05/11/2024 text/html hypertension blood pressure controlled no headache no dizziness. Hyperlipidemia we will check blood work he was taking his rosuvastatin without side effects. BPH doing well on current medical strategy. His presumed psoriasis is not it has been biopsied he would like a 2nd opinion Juancarlos Easley MD Attn: [address] , [place], [address], [place] [facility] 05/15/2024 18:35:20 09/14/2024 text/html Hypertension no headache no dizziness history of prostate cancer doing fine using tamsulosin with Dizziness on standing hyperlipidemia tries to follow low-fat diet chronic dermatitis doing well on Dupixent. Juancarlos Easley MD Attn: [address] , [place], [address], [place] [facility] 09/19/2024 21:42:10 02/15/2025 text/html hypertension blood pressure controlled no headache no dizziness. Hyperlipidemia we will check blood work he was taking his rosuvastatin without side effects. BPH doing well on current medical strategy. His presumed psoriasis appears to be stable Juancarlos Easley MD Attn: [address] [facility], [place], [address], [place] [facility] 02/26/2025 16:40:31
--- OUTSIDE RECORDS SUMMARY | 2025-03-05 08:39 | XMS_ITS | Encounter Summary ---
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 Name Role Phone Unavailable Primary Care Provider Unavailabl e Encounter Details Date Type Department Care Team (Late st Contact Info) Description 02/11/2023 Lab Requisition [facility] - DermPath Lab [address] [facility], [place] [phone] Hebert Freeman PA-C [address] [place] [address] Dermatitis, unspecified Social History Tobacco Use Types [...] AM CDT) Case Report Dermatopathology Report Case: [id number] Authorizing Provider: Hebert Freeman PA-C Collected: 02/11/2023 12:00 AM Ordering Location: [facility] DermPath Lab Received: 02/12/2023 11:13 AM Pathologist: [...] characteristic determined by the Dermatopathology Laboratory at [facility], directed by Dr. Cora Maldonado. These tests need not be, and therefore are not, approved by the [place] Food and Drug Administration. The tests are used for clinical purposes. Billing Codes Specimen Charges Stain Charges 00810 1 3 12:22 PM CDT DERMATOPATHOLOGY LABORATORY Embedded Images 12:22 PM CDT DERMATOPATHOLOGY LABORATORY Pathology/Cytolog y TISSUE SPECIMEN FROM SKIN / Unknown 02/11/2023 02/12/2023 11:13 AM CDT Hebert Freeman PA-C LAB - PATHOLOGY/CYTOLOGY CATIE BENSON Edited Result - Final DERMATOPATHOLOGY LABORATORY [facility] - Department of Dermatology [facility] Special[facility] Medicine [address] [place] [address], [address] [phone] documented in this encounter Visit Diagnoses Diagnosis Dermatitis, unspecified documented in this encounter
--- NOTE | 2025-03-05 08:42 | PC.NURSE ---
form for medical release filled out and faxed to [facility] at this time
[2025-03-05 08:55] LABS: Hematocrit 44.8 % (42.0-52.0); Hemoglobin 15.0 g/dL (14.0-18.0); Immature Granulocyte Percent A 0.4 % (0-0.5); Lymphocytes Absolute Auto 1.76 K/mm3 (0.9-3.2); Mean Corpuscular HGB Conc 33.5 g/dl (32-36); Mean Corpuscular Hemoglobin 33.6 pg (26-34); Mean Corpuscular Volume 100.4 fl (80-100); Nucleated Red Blood Cells Absolute Auto 0.000 K/mm3 (0.0-0.012); Nucleated Red Blood Cells Perc 0.0 % (0.0-0.2); Platelet Count Result 323 k/mm3 (150-375); Red Blood Count 4.46 M/mm3 (4.6-6.20); White Blood Count 14.3 K/mm3 (4.5-10.0)
[2025-03-05 09:15] LABS: Alanine Aminotransferase 53 U/L (6-50); Albumin Level 4.6 g/dL (3.5-5.1); Alkaline Phosphatase 56 U/L (38-126); Anion Gap 9 mmol/L (4-12); Aspartate Amino Transferase 52 U/L (17-59); Bilirubin,Total 0.5 mg/dL (0.2-1.3); Blood Urea Nitrogen 12 mg/dL (9-20); Calcium 8.9 mg/dL (8.4-10.2); Carbon Dioxide 25 mmol/L (22-30); Chloride 103 mmol/L (98-107); Estimated CRCL calculation 61 ml/min; Estimated Glomerular Filt Rate > 60; Glucose 110 mg/dL (65-110); Potassium 4.1 mmol/L (3.4-5.0); Sodium 137 mmol/L (137-145); Total Protein 7.4 g/dL (6.3-8.2)
[2025-03-05 09:22] LABS: INR 1.0; Prothrombin Time 13.5 Seconds (11.1-14.7)
[2025-03-05 09:23] LABS: Partial Thromboplastin Time 30.6 Seconds (22.3-36.8)
--- NOTE | 2025-03-05 10:12 | ED.ABDPAIN ---
HPI - Abdominal Pain General Chief Complaint: Abdominal Pain Stated Complaint: abd pain Time Seen by Provider: 03/05/25 08:26 History of Present Illness HPI narrative: Patient is a 74-year-old male who presents ER with right lower quadrant abdominal pain and diagnosis of appendicitis. He was at [facility] last night where he had blood work and a CT scan performed showing appendicitis. They admitted him to the hospital but there was poor communication he did not know what was going on so he opted to leave against medical advice and come to the ER here for further evaluation and treatment. He has not had anything to eat or drink since 6:00 p.m. last night. He had generalized abdominal discomfort yesterday evening that then settled in the right lower quadrant and is sharp and worse with movements. He is on no blood thinning agents or anti-platelet medications. Related Data Home Medications ?Medication ?Instructions ?Recorded ?Confirmed ?Last Taken ?Type amlodipine 5 mg tablet 5 mg PO DAILY 12/04/23 12/16/23 12/16/23 History dupilumab 300 mg/2 mL subcutaneous 300 mg subcut [id number] 12/04/23 12/16/23 12/12/23 History pen injector (Dupixent) multivit with minerals-iron 18 1 tablet PO DAILY 12/04/23 12/16/23 12/12/23 History mg-folic ac 400 mcg-vit K 25 mcg tablet (Adults Multivitamin) nebivolol 10 mg tablet 10 mg PO DAILY 12/04/23 12/16/23 12/16/23 History omega-3 acid ethyl esters 1 gram 2 cap PO BID 12/04/23 12/16/23 12/12/23 History capsule rosuvastatin 10 mg tablet 10 mg PO DAILY 12/04/23 12/16/23 12/15/23 History tamsulosin 0.4 mg capsule 0.4 mg PO DAILY 12/04/23 12/16/23 12/15/23 History telmisartan 80 mg tablet 80 mg PO DAILY 12/04/23 12/16/23 12/15/23 History Allergies Allergy/AdvReac Type Severity Reaction Status Date / Time No Known Allergies Allergy Verified 03/05/25 08:18 Review of Systems Review of Systems: All systems reviewed & are unremarkable except as noted in HPI and below Constitutional: Constitutional: Reports no additional constitutional complaints Cardiovascular: Cardiovascular: Reports no additional cardiovascular complaints Respiratory: Respiratory: Reports no additional respiratory complaints Gastrointestinal: Gastrointestinal: Reports no additional gastrointestinal complaints PMFSH Past Medical History Medical History Asthma Hypertension Hyperlipidemia Social History Social History Additional smoking assessment comments: less than 0.5 PPD x 50 years, quit 2017 Alcohol intake: current Drinks per week: 8 Substance use: never Substance use type: does not use Spiritual care concerns: No Exam Narrative: GENERAL: Well-appearing, well-nourished, and in no acute distress. HEAD: Normocephalic, atraumatic. ENT: Mucous membranes moist. NECK: Supple. CHEST: Clear to auscultation. No respiratory distress. HEART: Regular rate and rhythm. Normal peripheral pulses. ABDOMEN: Soft, tender to palpation right lower quadrant with guarding, nondistended. EXTREMITIES: Normal range of motion. No edema. SKIN: Warm, dry, no rash. NEURO: Alert and oriented x3. PSYCH: Normal mood and affect. Course Course Emergency Course: 1012: Discussed with Dr. Hines. Patient should stay down here in they will likely go to the OR. Chart review from outside hospital shows he did receive Zosyn IV around midnight. We will give another dose here. Patient has been NPO since 6:00 p.m. yesterday. Vital Signs Vital signs: Vital Signs Temperature 97.5 F L 03/05/25 08:14 Pulse Rate 80 03/05/25 08:14 Respiratory Rate 16 03/05/25 08:14 Blood Pressure 140/90 03/05/25 08:14 Pulse Oximetry 98 03/05/25 08:14 Temperature 98.7 F 03/05/25 08:21 Pulse Rate 61 03/05/25 08:21 Respiratory Rate 18 03/05/25 08:21 Blood Pressure 155/83 H 03/05/25 09:01 Pulse Oximetry 97 03/05/25 09:01 Oxygen Delivery Room Air 03/05/25 08:21 MDM - Abdominal Pain Differential Diagnosis Differential diagnosis: Likely acute appendicitis, calculus of kidney, diverticulitis, gastroenteritis, pancreatitis and small bowel obstruction Medical Records Attestation: I reviewed the patient's medical records. Medical records narrative: ER record, lab results, imaging results from [facility]. Lab Data 03/05/25 08:47 03/05/25 08:47 Labs: Lab Results 03/05/25 Range/Units 08:47 WBC 14.3 H (4.5-10.0) K/mm3 RBC 4.46 L (4.6-6.20) M/mm3 Hgb 15.0 (14.0-18.0) g/dL Hct 44.8 (42.0-52.0) % MCV 100.4 H (80-100) fl MCH 33.6 (26-34) pg MCHC 33.5 (32-36) g/dl RDW 13.3 (11.5-14.5) % Plt Count 323 (150-375) k/mm3 MPV 8.5 (7.4-10.4) fl Immature Gran % (Auto) 0.4 (0-0.5) % Neut % (Auto) 77.9 H (45.5-73.1) % Lymph % (Auto) 12.3 L (18.3-44.2) % [place] % (Auto) 7.2 (2.6-8.5) % Eos % (Auto) 0.5 (0-4.4) % Baso % (Auto) 1.7 H (0.2-1.2) % Lymph # (Auto) 1.76 (0.9-3.2) K/mm3 [place] # (Auto) 1.0 H (0.1-0.6) K/mm3 Eos # (Auto) 0.1 (0-0.3) K/mm3 Baso # (Auto) 0.3 H (0.0-0.1) K/mm3 Abs Immat Gran (auto) 0.06 H (0.00-0.031) K/mm3 Absolute Neuts (auto) 11.1 H (1.3-6.7) K/mm3 Absolute Nucleated RBC 0.000 (0.0-0.012) K/mm3 Nucleated RBC % 0.0 (0.0-0.2) % PT 13.5 (11.1-14.7) Seconds INR 1.0 APTT 30.6 (22.3-36.8) Seconds Sodium 137 (137-145) mmol/L Potassium 4.1 (3.4-5.0) mmol/L Chloride 103 (98-107) mmol/L Carbon Dioxide 25 (22-30) mmol/L Anion Gap 9 (4-12) mmol/L BUN 12 (9-20) mg/dL Creatinine 1.00 (0.7-1.3) mg/dL Estim Creat Clear Calc 61 ml/min Estimated GFR > 60 (59 - ) Glucose 110 (65-110) mg/dL Calcium 8.9 (8.4-10.2) mg/dL Total Bilirubin 0.5 (0.2-1.3) mg/dL AST 52 (17-59) U/L ALT 53 H (6-50) U/L Alkaline Phosphatase 56 (38-126) U/L Total Protein 7.4 (6.3-8.2) g/dL Albumin 4.6 (3.5-5.1) g/dL Discharge Plan Discharge Clinical Impression: Acute appendicitis Patient Disposition: Still a Patient Condition: Stable
[2025-03-05] MEDS: PIPERACILLIN/TAZOBACTAM SOD 3.375 GM in SODIUM CHLORIDE 0.9% IV 50 ML 100 ML IVPB (10:18)
--- NOTE | 2025-03-05 10:32 | PM.IMHP ---
H&P: HPI History of Present Illness Date/Time: 03/05/25 10:32 Chief Complaint: acute appendicitis Narrative: The patient is a 74-year-old male presenting to the emergency department complaining of right lower quadrant abdominal pain. The patient reports this pain started yesterday and was initially more diffuse in nature. He reports localization of the right lower quadrant late yesterday night. Patient reports associated anorexia, nausea. Patient actually went to an outside emergency department where he was diagnosed with acute appendicitis. The patient subsequently signed out AMA and presented to our ER. Review of Systems Review of Systems: All systems reviewed & are unremarkable except as noted in HPI and below PMFSH Past Medical History Medical History Asthma Hypertension Hyperlipidemia Social History Social History Additional smoking assessment comments: less than 0.5 PPD x 50 years, quit 2016 Alcohol intake: current Drinks per week: 8 Substance use: never Substance use type: does not use Spiritual care concerns: No Comments The patient denies any previous intra-abdominal surgery, denies any family history of inflammatory bowel disease or colon cancer Meds Home Medications and Allergies Home Medications ?Medication ?Instructions ?Recorded ?Confirmed ?Type amlodipine 5 mg tablet 5 mg PO DAILY 12/04/23 12/16/23 History dupilumab 300 mg/2 mL subcutaneous 300 mg subcut [id number] 12/04/23 12/16/23 History pen injector (Dupixent) multivit with minerals-iron 18 1 tablet PO DAILY 12/04/23 12/16/23 History mg-folic ac 400 mcg-vit K 25 mcg tablet (Adults Multivitamin) nebivolol 10 mg tablet 10 mg PO DAILY 12/04/23 12/16/23 History omega-3 acid ethyl esters 1 gram 2 cap PO BID 12/04/23 12/16/23 History capsule rosuvastatin 10 mg tablet 10 mg PO DAILY 12/04/23 12/16/23 History tamsulosin 0.4 mg capsule 0.4 mg PO DAILY 12/04/23 12/16/23 History telmisartan 80 mg tablet 80 mg PO DAILY 12/04/23 12/16/23 History Allergies Allergy/AdvReac Type Severity Reaction Status Date / Time No Known Allergies Allergy Verified 03/05/25 08:18 Vital Signs Vital Signs - 24 hr 03/05/25 08:14 03/05/25 08:21 03/05/25 08:32 Temperature 36.4 C L 37.1 C Pulse Rate 80 61 Respiratory Rate 16 18 Blood Pressure 140/90 157/89 H Pulse Oximetry 98 96 98 Oxygen Delivery Room Air 03/05/25 08:57 03/05/25 09:00 03/05/25 09:01 Temperature Pulse Rate Respiratory Rate Blood Pressure 155/83 H Pulse Oximetry 97 95 97 Oxygen Delivery Exam Const: General: cooperative, no acute distress and uncomfortable HENMT: Head: normal to inspection, normocephalic and atraumatic Eyes: General: appearance normal, both eyes and all related structures Neck: Neck: normal visual inspection, full ROM and no lymphadenopathy Resp: Auscultation: clear to auscultation bilaterally Cardio: Rate: regular rate Rhythm: regular rhythm GI: Inspection: normal to inspection and non-distended GI Palp: Yes abdominal tenderness, Yes Soft to palpation, Yes Tenderness to palpation present (GI), Yes Guarding due to palpation present (GI) and No Rigid due to palpation Other: focal guarding in the right lower quadrant Skin: General skin exam: normal color and no rashes or lesions noted Neuro: General: patient oriented x3 Extrem: General: normal to inspection and full ROM H&P: Results Labs Labs: Short CBC 03/05/25 Range/Units 08:47 WBC 14.3 H (4.5-10.0) K/mm3 Hgb 15.0 (14.0-18.0) g/dL Hct 44.8 (42.0-52.0) % Plt Count 323 (150-375) k/mm3 [facility] 03/05/25 08:47 Sodium 137 Potassium 4.1 Chloride 103 Carbon Dioxide 25 BUN 12 Creatinine 1.00 Glucose 110 Calcium 8.9 Liver Function 03/05/25 Range/Units 08:47 Total Bilirubin 0.5 (0.2-1.3) mg/dL AST 52 (17-59) U/L ALT 53 H (6-50) U/L Alkaline Phosphatase 56 (38-126) U/L Albumin 4.6 (3.5-5.1) g/dL Assessment and Plan Assessment and plan (1) Acute appendicitis: Code(s): K35.80 - Unspecified acute appendicitis Status: Acute Assessment and Plan: will set up for laparoscopic appendectomy, NPO, IV antibiotics
--- NOTE | 2025-03-05 10:44 | WPDHPUPDATE1 ---
History and Physical Update Update Date/Time: 03/05/25 10:44 History and Physical has been reviewed, including an updated exam of the patient. There are NO changes in the patient's condition. Risks, benefits, and alternatives have been discussed and questions answered. Patient agrees to proceed with procedure.
[2025-03-05] MEDS: LACTATED RINGERS 1,000 ML 30 ML IV CONT (11:30)
--- NOTE | 2025-03-05 11:39 | WPDANESEPPF ---
Anes - Initial Pre Proc Eval Procedure: Operation Date: 03/05/25 11:30 Proposed Procedures p Laparoscopic Appendectomy - Jocelin Hines MD Date/Time: 03/05/25 11:39 Surgeon: Jocelin Hines MD Pre Op Diagnosis: abd pain Patient Data Age: 74 Gender: M Height: 1.83 m Weight: 98.9 kg Last Vital Signs Temp 37.1 C 03/05/25 08:21 Pulse 61 03/05/25 08:21 Resp 18 03/05/25 08:21 BP 155/83 H 03/05/25 09:01 Pulse Ox 97 03/05/25 09:01 O2 Del Method Room Air 03/05/25 08:21 Allergies Allergy/AdvReac Type Severity Reaction Status Date / Time No Known Allergies Allergy Verified 03/05/25 08:18 Home Medications ?Medication ?Instructions ?Recorded ?Confirmed ?Type amlodipine 5 mg tablet 5 mg PO DAILY 12/04/23 12/16/23 History dupilumab 300 mg/2 mL subcutaneous 300 mg subcut [id number] 12/04/23 12/16/23 History pen injector (Dupixent) multivit with minerals-iron 18 1 tablet PO DAILY 12/04/23 12/16/23 History mg-folic ac 400 mcg-vit K 25 mcg tablet (Adults Multivitamin) nebivolol 10 mg tablet 10 mg PO DAILY 12/04/23 12/16/23 History omega-3 acid ethyl esters 1 gram 2 cap PO BID 12/04/23 12/16/23 History capsule rosuvastatin 10 mg tablet 10 mg PO DAILY 12/04/23 12/16/23 History tamsulosin 0.4 mg capsule 0.4 mg PO DAILY 12/04/23 12/16/23 History telmisartan 80 mg tablet 80 mg PO DAILY 12/04/23 12/16/23 History Laboratory Tests 03/05/25 08:47 WBC 14.3 H K/mm3 (4.5-10.0) RBC 4.46 L M/mm3 (4.6-6.20) Hgb 15.0 g/dL (14.0-18.0) Hct 44.8 % (42.0-52.0) MCV 100.4 H fl (80-100) MCH 33.6 pg (26-34) MCHC 33.5 g/dl (32-36) RDW 13.3 % (11.5-14.5) Plt Count 323 k/mm3 (150-375) MPV 8.5 fl (7.4-10.4) Immature Gran % (Auto) 0.4 % (0-0.5) Neut % (Auto) 77.9 H % (45.5-73.1) Lymph % (Auto) 12.3 L % (18.3-44.2) [place] % (Auto) 7.2 % (2.6-8.5) Eos % (Auto) 0.5 % (0-4.4) Baso % (Auto) 1.7 H % (0.2-1.2) Lymph # (Auto) 1.76 K/mm3 (0.9-3.2) [place] # (Auto) 1.0 H K/mm3 (0.1-0.6) Eos # (Auto) 0.1 K/mm3 (0-0.3) Baso # (Auto) 0.3 H K/mm3 (0.0-0.1) Abs Immat Gran (auto) 0.06 H K/mm3 (0.00-0.031) Absolute Neuts (auto) 11.1 H K/mm3 (1.3-6.7) Absolute Nucleated RBC 0.000 K/mm3 (0.0-0.012) Nucleated RBC % 0.0 % (0.0-0.2) PT 13.5 Seconds (11.1-14.7) INR 1.0 APTT 30.6 Seconds (22.3-36.8) Sodium 137 mmol/L (137-145) Potassium 4.1 mmol/L (3.4-5.0) Chloride 103 mmol/L (98-107) Carbon Dioxide 25 mmol/L (22-30) Anion Gap 9 mmol/L (4-12) BUN 12 mg/dL (9-20) Creatinine 1.00 mg/dL (0.7-1.3) Estim Creat Clear Calc 61 ml/min Estimated GFR > 60 (59 - ) Glucose 110 mg/dL (65-110) Calcium 8.9 mg/dL (8.4-10.2) Total Bilirubin 0.5 mg/dL (0.2-1.3) AST 52 U/L (17-59) ALT 53 H U/L (6-50) Alkaline Phosphatase 56 U/L (38-126) Total Protein 7.4 g/dL (6.3-8.2) Albumin 4.6 g/dL (3.5-5.1) Patient hx anesthesia problems: none Family hx anesthesia problems: none Results Review: All pre-operative results and documents have been reviewed as part of the pre-operative evaluation. PMFSH Past Medical History Medical History Asthma Hypertension Hyperlipidemia Social History Social History Additional smoking assessment comments: less than 0.5 PPD x 50 years, quit 2016 Alcohol intake: current Drinks per week: 8 Substance use: never Substance use type: does not use Spiritual care concerns: No Anes - Eval Final PreProcedure Day of Procedure 03/05/25 11:39 Patient weight: overweight Heart: regular rate and rhythm Lungs: clear to auscultation Airway: Mallampati scale class II Neurological: alert and oriented Last oral intake: >/= 8 hours ASA classification: III Emergent: no Anesthetic plan: proceed Anesthesia type and monitoring: general ETT and standard monitoring Results Review: All pre-operative results and documents have been reviewed as part of the pre-operative evaluation. Informed Consent: The patient's anesthetic plan and its attendant risks and benefits were discussed with the patient/family/POA. Questions were solicited and answers provided to the satisfaction of the patient/family/POA.
[2025-03-05] MEDS: BUPIVACAINE/EPINEPHRINE 0.5% 30 ML VIAL INFILTRATE (11:58)
--- NOTE | 2025-03-05 12:05 | S_PTH ---
PATIENT: Angel Aguilar LOC: [facility] U#:[id number] AGE/SX: 74/M ROOM: RE03/05/[address]: Jocelin Hines MD : 1950 BED: DIS: 03/05/2025 SPEC #: [id number] RECD: 03/07/25 08:25 STATUS: JOSUE REManpreet #: [id number] EDWIN: 03/05/25 12:[address]: Jocelin Hines DEPT: [facility] Surgical RECD BY: Irma Pino ENTERED: 03/07/25 08:25 SP TYPE: Surgical OTHR DR: Rob Easley, Tissues: A - Appendix Procedures: Hematoxylin and Eosin Stain Gross and Microscopic Level 3
--- NOTE | 2025-03-05 12:26 | W.PM.PROC2 ---
Procedure Note - Detailed Date of Procedure 03/05/25 Pre-op Diagnosis acute appendicitis Post-op Diagnosis Same Procedure Performed laparoscopic appendectomy Surgeon Jocelin Hines MD [employer] [place] Anesthesia General Indications 74-year-old male presenting to the emergency department acute appendicitis Findings acute appendicitis no evidence of perforation Description of Procedure The patient was taken to the operating room and placed in the supine position. After adequate induction of general anesthesia, the patient was prepped and draped in the normal sterile fashion. A time-out was then done to verify the patient's identity, as well as the procedure being performed. I began by making a 5 mm incision in the infraumbilical region, through this a Veress needle was placed in the peritoneal cavity. CO2 gas was then insufflated and after adequate pneumoperitoneum was achieved the Veress needle was removed. Then placed a 5 mm Optiview trocar under direct visualization into the peritoneal cavity. I then insufflated through this trocar site and the endoscope was placed into the trocar. Under direct visualization, placed 2 further 5 mm suprapubic port as well as an additional 12 mm port in the left lower abdomen. At this point identified the cecum, I retracted the cecum both medially and superiorly allowing me to expose the appendix. The appendix was noted to be very dilated and inflamed. The appendix was noted to be very adherent to the right lateral sidewall as well as the ileum. I was able to bluntly dissect the appendix from these adhesions. I then was able to locate the base of the appendix with the cecum. I created a window with the [place] dissector between the appendix itself and the mesoappendix. I then transected the mesoappendix with a white vascular staple load. Of note, this required 2 staple loads as the mesoappendix was quite thickened. The Endo-KIRK was then reloaded with a blue staple load and I transected the base of the appendix. Once the specimen was completely detached, an endo-pouch was placed into the 12 mm port site and the specimen was removed through the endo-pouch. The appendiceal specimen will be sent to pathology for further review. I then copiously irrigated the right lower quadrant. Hemostasis was noted at all staple lines no other pathology was seen in this area. I then moved the camera to the suprapubic port to check our its port of entry. No iatrogenic injury or other pathology was noted in the upper abdomen. I then closed the 12 mm port site with a Ang code and 0 Vicryl suture under direct visualization. At this point, the abdomen was desufflated and all ports were removed. All port sites were closed with 4 Monocryl subcuticular suture. Dermabond was placed on all wounds. The patient tolerated the procedure well and was extubated in the operating room postop. He will be sent to the recovery room in stable condition. Estimated Blood Loss 10 Drains No Packing No Pathology Yes Complications No immediate complications Condition Stable Disposition PACU [facility] Billing Surgery - Charge Forward: Surgery Billing
[2025-03-05] MEDS: oxyCODONE HCL (*CRX) 5 MG TAB IR PO (13:31)
== END 2025-03-05 14:20 | disposition home or self-care (01) ==
LOC: ANHED 08:39 → ANHSURGERY 10:34
PROVIDERS: Emergency Provider Emergency Medicine; PCP Internal Medicine; Visit Provider Surgery
PROC: 0DTJ4ZZ Resection of Appendix, Percutaneous Endoscopic Approach (ICD-10-PCS; CPT 44970; principal; 2025-03-05 11:30)
DX: K35.32 Acute appendicitis with perforation, localized peritonitis, and gangrene, without abscess (principal)
CPT/HCPCS: 44970; 36415; 80053; 85025; 85610; 85730; 88304; 96361; 96365; 99285; A9270; J0360; J2270; J2543; J2704; J7030; J7120